=== PATIENT | female | born 1945 | race Caucasian/White ===

== ENCOUNTER 2017-03-05 16:05 | Inpatient (IN) | payer MEDICARE, OTHER ==
[2017-03-04 15:14] VITALS: BP 143/81; PULSE 88; TEMP 36.8; O2SAT 97
[~2017-03-05] VITALS: Ht 162.6 cm; Wt 54.4 kg
[~2017-03-05 16:05] MED LIST: AMB10; DPKEC500; PARO1TAB29; SUMA50TA15
[2017-03-05] MEDS ORDERED: SODIUM CHLORIDE 0.9% 1000ML 1,000 ML IV STA (16:34)
[2017-03-05 16:58] LABS: URINE APPEARANCE CLEAR (CLEAR); URINE COLOR DK YELLOW; URINE NITRITE NEG (NEG); URINE PH 5.5 (4.5-7.5); URINE SPECIFIC GRAVITY 1.018 (1.000-1.030); UROBILINOGEN NEG (NEG); ZZURINE CULT IF INDIC CATH NO
[2017-03-05 17:01] LABS: MANUAL MICROSCOPIC REQUIRED? NO; REVIEW REQ? NO; URINE BILIRUBIN NEG (NEG)
[2017-03-05 17:10] LABS: BASO % 0.1 %; BASO ABS # 0.01 K/uL (0-0.2); COMPLETE YES; EOS % 0.1 %; HEMATOCRIT 39.3 % (37-47); IG% 0.3 %; LYMPH % 7.2 %; LYMPH ABS # 1.06 K/uL (1.2-3.4); MEAN CELL VOLUME 89.3 fL (80-100); MEAN CORPUSCULAR HEMOGLOBIN 29.5 pg (25-34); MEAN CORPUSCULAR HGB CONC 33.1 g/dl (32-36); MEAN PLATELET VOLUME 9.5 fL (7.4-10.4); MONO % 5.7 %; NEUT % 86.6 %; PLATELET COUNT 379 K/uL (130-400); WHITE BLOOD COUNT 14.65 K/uL (4.8-10.8)
--- NOTE | 2017-03-05 17:10 | DIAGNOSTIC IMAGING REPORT ---
CHEST ONE VIEW PORTABLE CLINICAL HISTORY: AMS dyspnea COMPARISON STUDY: 06/05/2006 FINDINGS: Male Limited study as the head overlies the upper aspect of left hemithorax. Right lung is clear. Left base is clear. Fixed hiatal hernia. No evidence for cardiac enlargement. Left shoulder arthroplasty IMPRESSION: Nonvisualization left upper lung has the head overlies this region . Fixed hiatal hernia. The right lung and left base are clear. Electronically signed by: Raymond Ford M.D. 03/05/2017 5:09 PM Dictated Date/Time: 03/05/2017 5:07 PM
[2017-03-05 17:11] LABS: VEN BLD GAS O2 SATURATION 64.6 %; VEN BLOOD GAS BASE EXCESS -0.1 mmol/L; VENOUS BLOOD GAS PCO2 41 mmHg (38.0-50.0); VENOUS BLOOD GAS PO2 35 mmHg
[2017-03-05 17:18] LABS: INR 1.1 (0.9-1.1); PARTIAL THROMBOPLASTIN RATIO 0.9; PROTHROMBIN TIME (PATIENT) 12.2 SECONDS (9.0-12.0)
[2017-03-05 17:25] LABS: BUN/CREATININE RATIO 53.7 (10-20); CALCIUM 8.8 mg/dl (8.5-10.1); CREATININE 0.81 mg/dl (0.60-1.20)
--- NOTE | 2017-03-05 17:40 | DIAGNOSTIC IMAGING REPORT ---
CERVICAL SPINE CT CT DOSE: 2189.38 mGy.cm HISTORY: Trauma fall TECHNIQUE: Multiaxial CT images of the cervical spine were performed and reformatted in the sagittal and coronal plane without the use of contrast. COMPARISON: None. FINDINGS: No fractures. No subluxation. Prevertebral soft tissues and the C1-C2 interval are intact. No pneumothorax. Considerable degenerative change throughout. IMPRESSION: No fractures within the cervical spine. Degenerative change. Electronically signed by: Raymond Ford M.D. 03/05/2017 5:38 PM Dictated Date/Time: 03/05/2017 5:36 PM
--- NOTE | 2017-03-05 17:40 | DIAGNOSTIC IMAGING REPORT ---
HEAD CT NONCONTRAST CT DOSE: HISTORY: Mental status change ams TECHNIQUE: Multiaxial CT images of the head were performed without the use of intravenous contrast. Comparison: None. Findings: The paranasal sinuses and mastoid air cells are clear. The calvarium and skull base are intact. The ventricles and sulci are within normal limits. There is no mass, hematoma, midline shift, or acute infarct. Possible small right periventricular infarct best seen transaxial image 20 Impression: Possible small subacute right periventricular infarct. Age-related atrophy and chronic small vessel change. No acute intracranial hemorrhage. Electronically signed by: Raymond Ford M.D. 03/05/2017 5:35 PM Dictated Date/Time: 03/05/2017 5:34 PM
[2017-03-05] MEDS ORDERED: HYDR-5688 PO (17:46)
[2017-03-05] MEDS ORDERED: PARO40TA2 PO (17:46)
[2017-03-05] MEDS ORDERED: METH500T37 PO (17:46)
[2017-03-05] MEDS ORDERED: ATV/1 PO (17:46)
[2017-03-05] MEDS ORDERED: AMB5 PO (17:46)
[2017-03-05] MEDS ORDERED: LISI20TA3 PO (17:46)
[2017-03-05] MEDS ORDERED: SUMA50TA15 PO (17:46)
[2017-03-05] MEDS ORDERED: ASPIRIN 81 MG CHEW PO STA (17:56)
[2017-03-05] MEDS ORDERED: SODIUM CHLORIDE 0.9% 500ML 500 ML IV STA (18:20)
[2017-03-05] MEDS ORDERED: CEFEPIME IV 1,000 MG in DEXTROSE 5% 100ML 100 ML IV STA (18:20)
--- NOTE | 2017-03-05 18:20 | EMERGENCY ROOM VISIT NOTE ---
History Report prepared by Nacho: Evon Mathew Under the Supervision of: Dr. Vinicio Gates D.O. First contact with patient: 16:10 Chief Complaint: ALTERED MENTAL STATUS Stated Complaint: AMS History of Present Illness The patient is a 71 year old female who presents to the Emergency Room with complaints of constant altered mental status beginning [employer]. The police found the patient at her home when he went to serve a warrant. The patient was naked in the position on the floor of the kitchen. She was alone. EMS was called and the patient was brought to the ED by ambulance. The patient is a poor historian. She remembers being in the kitchen, but then talks about "dancing" and "flying." She states that she has been wearing oxygen for a couple of months. She denies abdominal pain but reports some left hand pain. The patient's son is at bedside. He has not seen the patient since . He notes that she fell a few months ago and broke her shoulder. She had surgery on that shoulder and was staying with another son. Per son, he did not think that she was supposed to be at home alone now. He states that her mental status is changed. She typically knows where she is and is not normally this confused. The history is limited due to the patient's AMS. Source of History: patient, family (son), police, EMS History Limited By: AMS Onset: [employer] Position: other (global) Quality: other (AMS) Timing: constant Associated Symptoms: No abdominal pain Note: Pt notes left hand pain. Review of Systems See HPI for pertinent positives & negatives. A total of 10 systems reviewed and were otherwise negative. Past Medical & Surgical Medical Problems: (1) Kyphosis of thoracic region Surgical Problems: (1) History of shoulder surgery Family History No pertinent history stated. Social History Smoking Status: Current Every Day Smoker Marital Status: Housing Status: lives alone Occupation Status: unemployed Current/Historical Medications Scheduled Lisinopril (Prinivil), 20 MG PO DAILY Methocarbamol (Robaxin), 1,000 MG PO QID Paroxetine HCl (Paroxetine), 1.5 TAB PO DAILY Scheduled PRN Hydrocodone/Acetaminophen 5MG/325MG ([place] 5MG/325MG), 1 TABLET PO Q6 PRN for Pain Lorazepam (Ativan), 1 MG PO HS PRN for Sleep Sumatriptan Succinate (Imitrex), 50 MG PO PRN PRN for Headache Zolpidem Tartrate (Zolpidem Tartrate), 5 MG PO HS PRN for Sleep Allergies Coded Allergies: Iodine (Verified Allergy, Unknown, 03/05/17) Uncoded Allergies: CONTRASTMEDIA (Allergy, Severe, ANAPHYLAXIS, 11/16/09) ANAPHYLACTIC Physical Exam Vital Signs Date Time Temp Pulse Resp B/P Pulse Ox O2 Delivery O2 Flow Rate FiO2 03/05/17 17:54 100 18 165/97 97 Nasal Cannula 2.0 03/05/17 17:15 100 20 158/98 96 Room Air 03/05/17 16:53 104 03/05/17 16:12 36.8 103 18 160/85 94 Room Air Physical Exam GENERAL: sitting up in bed, disheveled, chronically ill appearing, well nourished, no distress, non-toxic HEAD: NC/AT EYE EXAM: normal conjunctiva, PERRL and EOM's intact OROPHARYNX: no exudate, no erythema, lips, buccal mucosa, and tongue normal and mucous membranes are moist NECK: supple, no nuchal rigidity, no adenopathy, non-tender LUNGS: Coarse breath sounds at the bilateral bases. Normal chest wall mechanics HEART: Tachycardic, irregularly irregular, no murmurs, S1 normal and S2 normal ABDOMEN: abdomen soft, non-tender, old abdominal incision present, normo-active bowel sounds, no masses, no rebound or guarding. BACK: Large thoracic kyphosis, no midline tenderness, no CVA tenderness. SKIN: no rashes and no bruising UPPER EXTREMITIES: upper extremities are grossly normal. Grasp with flexion/ extension of upper extremities is equal and intact bilaterally. LOWER EXTREMITIES: No pitting edema. Minimal flexion of hips along with plantarflexion and dorsiflexion is intact in the lower extremities. NEURO EXAM: Alert, not oriented to place or time, intermittently confused. Able to follow commands, no focal deficits. Cranial nerves grossly intact. Medical Decision & Procedures ER Provider Diagnostic Interpretation: Radiology results as stated below per my review and the radiologist's interpretation: CHEST ONE VIEW PORTABLE CLINICAL HISTORY: AMS dyspnea COMPARISON STUDY: 06/05/2006 FINDINGS: Male Limited study as the head overlies the upper aspect of left hemithorax. Right lung is clear. Left base is clear. Fixed hiatal hernia. No evidence for cardiac enlargement. Left shoulder arthroplasty IMPRESSION: Nonvisualization left upper lung has the head overlies this region . Fixed hiatal hernia. The right lung and left base are clear. Electronically signed by: Raymond Ford M.D. 03/05/2017 5:09 PM Dictated Date/Time: 03/05/2017 5:[address] DOSE: HISTORY: Mental status change ams TECHNIQUE: Multiaxial CT images of the head were performed without the use of intravenous contrast. Comparison: None. Findings: The paranasal sinuses and mastoid air cells are clear. The calvarium and skull base are intact. The ventricles and sulci are within normal limits. There is no mass, hematoma, midline shift, or acute infarct. Possible small right periventricular infarct best seen transaxial image 20 Impression: Possible small subacute right periventricular infarct. Age-related atrophy and chronic small vessel change. No acute intracranial hemorrhage. Electronically signed by: Raymond Ford M.D. 03/05/2017 5:35 PM Dictated Date/Time: 03/05/2017 5:[address] DOSE: 2189.38 mGy.cm HISTORY: Trauma fall TECHNIQUE: Multiaxial CT images of the cervical spine were performed and reformatted in the sagittal and coronal plane without the use of contrast. COMPARISON: None. FINDINGS: No fractures. No subluxation. Prevertebral soft tissues and the C1-C2 interval are intact. No pneumothorax. Considerable degenerative change throughout. IMPRESSION: No fractures within the cervical spine. Degenerative change. Electronically signed by: Raymond Ford M.D. 03/05/2017 5:38 PM Dictated Date/Time: 03/05/2017 5:36 PM Laboratory Results 03/05/17 16:50 Red Blood Count 4.40, Mean Corpuscular Volume 89.3, Mean Corpuscular Hemoglobin 29.5, Mean Corpuscular Hemoglobin Concent 33.1, Mean Platelet Volume 9.5, Neutrophils (%) (Auto) 86.6, Lymphocytes (%) (Auto) 7.2, Monocytes (%) (Auto) 5.7, Eosinophils (%) (Auto) 0.1, Basophils (%) (Auto) 0.1, Neutrophils # (Auto) 12.70, Lymphocytes # (Auto) 1.06, Monocytes # (Auto) 0.83, Eosinophils # (Auto) 0.01, Basophils # (Auto) 0.01 03/05/17 16:50 Test 03/05/17 16:15 03/05/17 16:40 03/05/17 16:50 Bedside Glucose 130 mg/dl (70-90) Urine Color DK YELLOW Urine Appearance CLEAR (CLEAR) Urine pH 5.5 (4.5-7.5) Urine Specific [place] 1.018 (1.000-1.030) Urine Protein TRACE (NEG) Urine Glucose (UA) NEG (NEG) Urine Ketones 1+ (NEG) Urine Occult Blood TRACE (NEG) Urine Nitrite NEG (NEG) Urine Bilirubin NEG (NEG) Urine Urobilinogen NEG (NEG) Urine Leukocyte Esterase NEG (NEG) Urine WBC (Auto) 1-5 /hpf (0-5) Urine RBC (Auto) 0-4 /hpf (0-4) Urine Hyaline Casts (Auto) 1-5 /lpf (0-5) Urine Epithelial Cells (Auto) 5-10 /lpf (0-5) Urine Bacteria (Auto) NEG (NEG) White Blood Count 14.65 K/uL (4.8-10.8) Red Blood Count 4.40 M/uL (4.2-5.4) Hemoglobin 13.0 g/dL (12.0-16.0) Hematocrit 39.3 % (37-47) Mean Corpuscular Volume 89.3 fL (80-100) Mean Corpuscular Hemoglobin 29.5 pg (25-34) Mean Corpuscular Hemoglobin Concent 33.1 g/dl (32-36) Platelet Count 379 K/uL (130-400) Mean Platelet Volume 9.5 fL (7.4-10.4) Neutrophils (%) (Auto) 86.6 % Lymphocytes (%) (Auto) 7.2 % Monocytes (%) (Auto) 5.7 % Eosinophils (%) (Auto) 0.1 % Basophils (%) (Auto) 0.1 % Neutrophils # (Auto) 12.70 K/uL (1.4-6.5) Lymphocytes # (Auto) 1.06 K/uL (1.2-3.4) Monocytes # (Auto) 0.83 K/uL (0.11-0.59) Eosinophils # (Auto) 0.01 K/uL (0-0.5) Basophils # (Auto) 0.01 K/uL (0-0.2) RDW Standard Deviation 60.5 fL (36.4-46.3) RDW Coefficient of Variation 18.4 % (11.5-14.5) Immature Granulocyte % (Auto) 0.3 % Immature Granulocyte # (Auto) 0.04 K/uL (0.00-0.02) Prothrombin Time 12.2 SECONDS (9.0-12.0) Prothromb Time International Ratio 1.1 (0.9-1.1) Activated Partial Thromboplast Time 23.8 SECONDS (21.0-31.0) Partial Thromboplastin Ratio 0.9 Venous Blood pH 7.40 (7.36-7.41) Venous Blood Partial Pressure CO2 41 mmHg (38.0-50.0) Venous Blood Partial Pressure O2 35 mmHg Venous Blood HCO3 25 meq/L Venous Blood Oxygen Saturation 64.6 % Venous Blood Base Excess -0.1 mmol/L Anion Gap 12.0 mmol/L (3-11) Est Creatinine Clear Calc Drug Dose 46.9 ml/min Estimated GFR () 84.1 Estimated GFR (Non- 72.6 BUN/Creatinine Ratio 53.7 (10-20) Calcium Level 8.8 mg/dl (8.5-10.1) Total Bilirubin 0.8 mg/dl (0.2-1) Direct Bilirubin 0.3 mg/dl (0-0.2) Aspartate Amino Transf (AST/SGOT) 187 U/L (15-37) Alanine Aminotransferase (ALT/SGPT) 72 U/L (12-78) Alkaline Phosphatase 267 U/L (45-117) Total Creatine Kinase 4049 U/L (26-192) Troponin I 0.110 ng/ml (0-0.045) Total Protein 7.1 gm/dl (6.4-8.2) Albumin 3.2 gm/dl (3.4-5.0) Valproic Acid (Depakene) Level < 3 mcg/ml (50-100) Laboratory results per my review. Medications Administered Medications (Trade) Dose Ordered Sig/Veronica Route Start Time Stop Time Status Last Admin Dose Admin Sodium Chloride (Nss 1000ml) 1,000 ml @ 999 mls/hr Q1H1M STAT IV 03/05/17 16:34 03/05/17 17:34 DC 03/05/17 16:59 999 MLS/HR ECG Indication: altered mental status Rate (beats per minute): 104 Rhythm: atrial fibrillation (with RVR) Findings: Q waves (Septal and inferior), left axis deviation, other (poor baseline) Comparison ECG Date: 06/09/06 Change: Septal and inferior Q-waves are new. ED Course ED COURSE: Vital signs were reviewed and showed hypertensive and tachycardic. The patients medical record was reviewed The above diagnostic studies were performed and reviewed. ED treatments and interventions as stated above. 1610: The patient was evaluated in room B7. A complete history and physical examination was performed. 1634: NSS 1000 ml @ 999 mls/hr IV 1645: I reassessed the patient and she was getting an x-ray. 1744: Upon reevaluation, the patient is resting comfortably. I discussed my findings with the patient and her family. I answered all pertaining questions that they had. They understand and agree with the treatment plan. Based on the patients age, coexisting illnesses, exam and lab findings the decision to treat as an inpatient was made. The patient remained stable while under my care. The patient will be evaluated for further management. 1801: I spoke with Rivka Barber PA-C. We discussed the patients results and treatment plan. [facility] Medical Decision Differential diagnoses includes but is not limited to toxic, metabolic, infectious, traumatic, cardiac, neurologic, hematologic, psychiatric and inflammatory etiologies. Medication Reconciliation: I attest that I have personally reviewed the patient' s current medication list. Patient is a 71-year-old female brought in by EMS for altered mental status. Although she is oriented to person and place she has a sporadic thought process and is confused. She is unable to clearly answer all questions. Vitals are remarkable for an A. fib with a rate of 100. She does not think she takes any blood thinners. EKG is significantly changed from previous. Troponin is positive at 0.1. I do question whether this is rate related versus secondary to her rhabdomyolysis with a CK of 4000. She was given 2 L normal saline. She is given aspirin. CT of the head shows a subacute stroke. She has no obvious focal deficit but is clearly confused. She does have a leukocytosis of 14,000 but urine and chest x-ray are unremarkable. Her abdominal exam is benign. Uncertain of the true cause of her leukocytosis at this time however did cover her with broad-spectrum antibiotics and admitted her to internal medicine for further workup of her metabolic encephalopathy along with rhabdomyolysis, elevated troponin and CVA. Consults Time Called: 1755 Consulting Physician: Rivka Barber PA-C Returned Call: 1801 I spoke with Rivka Barber PA-C. We discussed the patients results and treatment plan. The patient will be evaluated by the [facility] for further management. Impression Primary Impression: Altered mental status Additional Impressions: CVA (cerebral vascular accident) Atrial fibrillation with RVR Elevated troponin Rhabdomyolysis Scribe Attestation The scribe's documentation has been prepared under my direction and personally reviewed by me in its entirety. I confirm that the note above accurately reflects all work, treatment, procedures, and medical decision making performed by me. Departure Information Dispostion Being Evaluated By Hospitalist Referrals No Doctor, Assigned (PCP) Patient Instructions My [facility] Stroke History Time Last Known Well unknown Stroke t-PA Criteria Reviewed Does NOT meet criteria for t-PA Reason t-PA Not Given Treatment not indicated Problem Qualifiers Primary Impression: Altered mental status Altered mental status type: unspecified Qualified Codes: R41.82 - Altered mental status, unspecified Additional Impressions: CVA (cerebral vascular accident) CVA mechanism: unspecified Qualified Codes: I63.9 - Cerebral infarction, unspecified Rhabdomyolysis Rhabdomyolysis type: non-traumatic Qualified Codes: M62.82 - Rhabdomyolysis
[2017-03-05] MEDS ORDERED: POTASSIUM CHLORIDE 10 MEQ TABCR PO SCH (18:23)
[2017-03-05] MEDS ORDERED: PHARMACIST DISCHARGE MED REC CONSULT PRN (19:15)
[2017-03-05] MEDS ORDERED: ONDANSETRON INJ 2 MG/ML 2 ML VIAL IV PRN (19:15)
[2017-03-05] MEDS ORDERED: LORAZEPAM 0.5 MG TAB ONE (20:13)
[2017-03-05] MEDS ORDERED: LORAZEPAM 0.5 MG TAB PO SCH (20:15)
[2017-03-05] MEDS ORDERED: METOPROLOL TARTRATE 1 MG/ML VIAL IV PRN (20:45)
[2017-03-05] MEDS ORDERED: DIVA500T59 PO (20:52)
[2017-03-05] MEDS: ATORVASTATIN 40 MG TAB PO SCH ×2 (21:00→22:33)
[2017-03-05] MEDS ORDERED: METHOCARBAMOL 500 MG TAB PO SCH (21:00)
[2017-03-05] MEDS ORDERED: NURSING VERBAL MED ORDER ONE (21:15)
--- NOTE | 2017-03-05 21:16 | History and Physical ---
History & Physical Date & Time of Service: March 05, 2017 at 20:06 Chief Complaint: AMS Primary Care Physician: Dr. Bojorquez History of Present Illness Source: patient, family, clinic records This is a 71 y/o female with PMH of hypertension, migraine, who presents to the ED with AMS. Pt is a poor historian. She she fell at home but does not recall the details. The fall was unwitnessed. Per ER provider the patient was found today by the police in her home. Patient was found naked in the position on the floor of her kitchen. EMS was called and the patient was brought to the ED by ambulance. Patient states she falls and hits her head "all the time". Uses a walker at home. She fell and broke her shoulder in November 2016 and fractured her hip in Jun 2016. Lives alone. She was living with her son Juvencio after hospitalization in [place] for falls in January, but now is living alone. Pt is accompanied by her other son who has not seen her for months. He states at baseline she is alert and oriented. Patient reports recent productive cough with yellow sputum and rhinorrhea. She is feeling generally weak in the arms and legs. Also reports "foggy vision" today. States she occasionally has epigastric pain which resolves with Zantac. No pain currently. She denies fever , chills, MARQUIS, dizziness, focal numbness or weakness, facial droop, slurred speech, chest pain, SOB, N/V/D, dysuria, frequency, wounds. Denies hx of abnormal bleeding. No prior dx of AF or CAD. No hx of CVA or TIA. I spoke to patient's son Juvencio on the phone who is her POA and sees her regularly. Son Juvencio states she was normal on the phone 2 days ago. He states her current confusion is worse than baseline. Patient was on PRN oxygen in the past but not using it lately. Son states she manages her own meds but sometimes forgets she already took them. Past Medical/Surgical History Medical Problems: (1) Anxiety Status: Chronic (2) Depression Status: Chronic (3) GERD (gastroesophageal reflux disease) Status: Chronic (4) Hypertension Status: Chronic (5) Kyphosis of thoracic region Status: Chronic (6) Migraine Status: Chronic (7) SCC (squamous cell carcinoma) Permanent Comment: right thigh 2001 Status: Chronic Surgical Problems: (1) History of hysterectomy Status: Chronic (2) History of shoulder surgery Status: Resolved (3) S/P total hip arthroplasty Status: Chronic Family History Not obtainable due to AMS. Social History Smoking Status: Current Every Day Smoker (1 ppd ) Alcohol Use: socially Drug Use: none Marital Status: Housing status: lives alone Immunizations History of Influenza Vaccine: No Tetanus Immunization Date: February 25, 1999 History of Pneumococcal: No History of Hepatitis B Vaccine: No Multi-Drug Resistant Organisms History of MDRO: No Allergies Coded Allergies: Iodinated Diagnostic Agents (Verified Allergy, Severe, ANAPHYLAXIS -- "Contrast Media", 03/05/17) Iodine (Verified Allergy, Unknown, 03/05/17) Home Medications Scheduled Divalproex Sodium (Depakote), 500 MG PO DAILY Lisinopril (Prinivil), 20 MG PO DAILY Methocarbamol (Robaxin), 1,000 MG PO QID Paroxetine HCl (Paroxetine), 1.5 TAB PO DAILY Scheduled PRN Hydrocodone/Acetaminophen 5MG/325MG (Montrose 5MG/325MG), 1 TABLET PO Q6 PRN for Pain Lorazepam (Ativan), 1 MG PO HS PRN for Sleep Sumatriptan Succinate (Imitrex), 50 MG PO PRN PRN for Headache Zolpidem Tartrate (Zolpidem Tartrate), 5 MG PO HS PRN for Sleep Review of Systems Ten systems reviewed and negative except as noted in HPI. Physical Exam Vital Signs Date Time Temp Pulse Resp B/P Pulse Ox O2 Delivery O2 Flow Rate FiO2 03/05/17 17:54 100 18 165/97 97 Nasal Cannula 2.0 03/05/17 17:15 100 20 158/98 96 Room Air 03/05/17 16:53 104 03/05/17 16:12 36.8 103 18 160/85 94 Room Air General Appearance: WD/WN, no apparent distress, + pertinent finding (alert confused 71 year old female, son and daughter in law at bedside) Head: normocephalic, atraumatic Eyes: normal inspection, PERRL, EOMI ENT: normal ENT inspection, hearing grossly normal, pharynx normal Neck: supple, no JVD, trachea midline Respiratory/Chest: lungs clear, normal breath sounds, no respiratory distress, no accessory muscle use Cardiovascular: no murmur, + irregularly irregular Abdomen/GI: normal bowel sounds, non tender, soft Back: + pertinent finding (kyphosis) Extremities/Musculoskelatal: no calf tenderness, no pedal edema Neurologic/Psych: network communications engineer II-XII nml as tested, alert, normal mood/affect, + pertinent finding (oriented to person and place only. unable to recall recent events. tangential speech at times. cherry grower strength 5/5 bilaterally. unable to lift bilateral legs off the bed. ankle flexion/ extension 5/5 bilaterally) Skin: normal color, warm/dry, + pertinent finding (ecchymosis scattered on extremities) Diagnostics Laboratory Results Results Past 24 Hours Test 03/05/17 16:15 03/05/17 16:40 03/05/17 16:50 03/05/17 19:28 Range/Units Bedside Glucose 130 70-90 mg/dl Urine Color DK YELLOW Urine Appearance CLEAR CLEAR Urine pH 5.5 4.5-7.5 Urine Specific [place] 1.018 1.000-1.030 Urine Protein TRACE NEG Urine Glucose (UA) NEG NEG Urine Ketones 1+ NEG Urine Occult Blood TRACE NEG Urine Nitrite NEG NEG Urine Bilirubin NEG NEG Urine Urobilinogen NEG NEG Urine Leukocyte Esterase NEG NEG Urine WBC (Auto) 1-5 0-5 /hpf Urine RBC (Auto) 0-4 0-4 /hpf Urine Hyaline Casts (Auto) 1-5 0-5 /lpf Urine Epithelial Cells (Auto) 5-10 0-5 /lpf Urine Bacteria (Auto) NEG NEG White Blood Count 14.65 4.8-10.8 K/uL Red Blood Count 4.40 4.2-5.4 M/uL Hemoglobin 13.0 12.0-16.0 g/dL Hematocrit 39.3 37-47 % Mean Corpuscular Volume 89.3 80-100 fL Mean Corpuscular Hemoglobin 29.5 25-34 pg Mean Corpuscular Hemoglobin Concent 33.1 32-36 g/dl Platelet Count 379 130-400 K/uL Mean Platelet Volume 9.5 7.4-10.4 fL Neutrophils (%) (Auto) 86.6 % Lymphocytes (%) (Auto) 7.2 % Monocytes (%) (Auto) 5.7 % Eosinophils (%) (Auto) 0.1 % Basophils (%) (Auto) 0.1 % Neutrophils # (Auto) 12.70 1.4-6.5 K/uL Lymphocytes # (Auto) 1.06 1.2-3.4 K/uL Monocytes # (Auto) 0.83 0.11-0.59 K/uL Eosinophils # (Auto) 0.01 0-0.5 K/uL Basophils # (Auto) 0.01 0-0.2 K/uL RDW Standard Deviation 60.5 36.4-46.3 fL RDW Coefficient of Variation 18.4 11.5-14.5 % Immature Granulocyte % (Auto) 0.3 % Immature Granulocyte # (Auto) 0.04 0.00-0.02 K/uL Prothrombin Time 12.2 9.0-12.0 SECONDS Prothromb Time International Ratio 1.1 0.9-1.1 Activated Partial Thromboplast Time 23.8 21.0-31.0 SECONDS Partial Thromboplastin Ratio 0.9 Venous Blood pH 7.40 7.36-7.41 Venous Blood Partial Pressure CO2 41 38.0-50.0 mmHg Venous Blood Partial Pressure O2 35 mmHg Venous Blood HCO3 25 meq/L Venous Blood Oxygen Saturation 64.6 % Venous Blood Base Excess -0.1 mmol/L Sodium Level 143 136-145 mmol/L Potassium Level 3.0 3.5-5.1 mmol/L Chloride Level 105 98-107 mmol/L Carbon Dioxide Level 26 21-32 mmol/L Anion Gap 12.0 3-11 mmol/L Blood Urea Nitrogen 44 7-18 mg/dl Creatinine 0.81 0.60-1.20 mg/dl Est Creatinine Clear Calc Drug Dose 46.9 ml/min Estimated GFR () 84.1 Estimated GFR (Non- 72.6 BUN/Creatinine Ratio 53.7 10-20 Random Glucose 109 70-99 mg/dl Calcium Level 8.8 8.5-10.1 mg/dl Total Bilirubin 0.8 0.2-1 mg/dl Direct Bilirubin 0.3 0-0.2 mg/dl Aspartate Amino Transf (AST/SGOT) 187 15-37 U/L Alanine Aminotransferase (ALT/SGPT) 72 12-78 U/L Alkaline Phosphatase 267 45-117 U/L Total Creatine Kinase 4049 26-192 U/L Troponin I 0.110 0-0.045 ng/ml Total Protein 7.1 6.4-8.2 gm/dl Albumin 3.2 3.4-5.0 gm/dl Thyroid Stimulating Hormone (TSH) 1.100 0.300-4.500 uIu/ml Valproic Acid (Depakene) Level < 3 50-100 mcg/ml Lactic Acid Level 2.0 0.4-2.0 mmol/L Test 03/05/17 19:55 Range/Units Diagnostic Radiology HEAD CT NONCONTRAST CT DOSE: HISTORY: Mental status change ams TECHNIQUE: Multiaxial CT images of the head were performed without the use of intravenous contrast. Comparison: None. Findings: The paranasal sinuses and mastoid air cells are clear. The calvarium and skull base are intact. The ventricles and sulci are within normal limits. There is no mass, hematoma, midline shift, or acute infarct. Possible small right periventricular infarct best seen transaxial image 20 Impression: Possible small subacute right periventricular infarct. Age-related atrophy and chronic small vessel change. No acute intracranial hemorrhage. CHEST ONE VIEW PORTABLE CLINICAL HISTORY: AMS dyspnea COMPARISON STUDY: 06/05/2006 FINDINGS: Male Limited study as the head overlies the upper aspect of left hemithorax. Right lung is clear. Left base is clear. Fixed hiatal hernia. No evidence for cardiac enlargement. Left shoulder arthroplasty IMPRESSION: Nonvisualization left upper lung has the head overlies this region . Fixed hiatal hernia. The right lung and left base are clear. CERVICAL SPINE CT CT DOSE: 2189.38 mGy.cm HISTORY: Trauma fall TECHNIQUE: Multiaxial CT images of the cervical spine were performed and reformatted in the sagittal and coronal plane without the use of contrast. COMPARISON: None. FINDINGS: No fractures. No subluxation. Prevertebral soft tissues and the C1-C2 interval are intact. No pneumothorax. Considerable degenerative change throughout. IMPRESSION: No fractures within the cervical spine. Degenerative change. EKG artifact present, Afib with RVR rate 104, no ST or T wave abnormality Impression Assessment and Plan ALTERED MENTAL STATUS Presents with fall, confusion, blurred vision Ddx includes TIA/CVA, metabolic encephalopathy due to infection and/or dehydration Infection considered due to leukocytosis (14K) and HR >90; afebrile, lactic acid WNL, procalcitonin pending; no source identified- no infiltrate on CXR, UA does not appear infected Received dose of cefepime in ED; will hold off on further abx for now Blood cx and urine cx pending Hold Ativan, Montrose, Ambien, methocarbamol for AMS RULE OUT CVA Risk factors- HTN, Afib CT head- Possible small subacute right periventricular infarct. Age-related atrophy and chronic small vessel change. No acute intracranial hemorrhage. Check MRI brain, MRA head and neck, echo with bubble study, fasting lipid panel , A1c Placed on aspirin and statin May need IV heparin for stroke with AF- will be decided after MRI PT/ OT evaluations Consult [facility] neurology; pt known to Dr. Aleman (follows for migraines) AFIB WITH RVR- NEWLY DIAGNOSED Rate ~100 Potassium low- replacing; check mag- ok; TSH WNL Received dose of cefepime for ? infxn given leukocytosis and tachycardia, however no source identified Check echo Lopressor 2.5 mg PRN HR >110 CHADS2 score- 1 for HTN plus 1-2 if she is truly having TIA or CVA May start IV heparin later tonight after MRI results ? whether candidate for fpc AC due to frequent falls Consult cardiology S/P FALL Unclear details, unwitnessed Check x-ray bilateral hip to r/o fx due to pain with ROM MILD RHABDOMYOLYSIS Secondary to fall CK ~4000 Continue IVF's Recheck CK in am MILD TROPONIN ELEVATION Troponin is 0.1 No angina; possibly due to AF with RVR EKG- AF with RVR, no STTWA Trend serial cardiac enzymes HYPOKALEMIA Replace and monitor Check mag HISTORY OF MIGRAINE Depakote level OK- continue Depakote DEPRESSION Continue Paxil GERD Continue PPI DVT PROPHYLAXIS Heparin SQ CODE STATUS Full code per my discussion with son Juvencio who is POA via phone call. He wishes to receive updates with any changes at [phone]. DISPOSITION Follows w/ Dr. Bojorquez for primary care Lives alone which is unsafe for her; secondary social studies teacher consulted for discharge planning Patient seen in collaboration with Dr. Figueroa. Please see his addendum. Attending Addendum Pt was seen and examined. Agreed with Nela VUONG assessment and plan. Briefly, 71 y/o female with PMH of hypertension, hx of fall with fracture was brought to the ED with AMS. As per son and ER documentation patient was found today by the police in her home. Police called EMS and Pt was brought to the ER. Patient was found naked in the position on the floor of her kitchen. Pt is confused and cannot provide history. Pt denies any chest pain, palpitation and sob. General- confused Head- atraumatic Eyes- PERRL, EOMI ENT- oropharynx clear Neck- supple, no JVD Lungs- No wheezing Heart- irregular rhythm Abdomen- normal bowel sounds, soft Extremities- No calf tenderness, b/l hips tenderness Neuro- alert, PERRL, EOMI; no facial palsy; no dysarthria Skin- warm & dry A/P ALTERED MENTAL STATUS Presents with fall, confusion, blurred vision Possible related to infection vs dehydration vs TIA Need to R/O CVA CT head showed Possible small subacute right periventricular infarct. elevated WBC Received dose of cefepime in ED; will hold off on further abx for now Blood cx and urine cx pending Hold meds with SYSTEMS MGR side effects Will get MRI/MRA head and MRA of neck Neuro Consult Case discussed with Neuro Dr. Haile about starting heparin drip in the setting of brain infarct recommend to wait for the MRI and if it seem like it is an emboli stroke vs large infarct. if it a large infarct, will hold on heparin drip due to risk of bleeding neuro check fall precaution Case management consult for placement AFib Unknown onset Elevated troponin will get a Decho cardio consult consider to start heparin drip, but need to r/o of any brain hemorrhage continue telemetry Lab, Imaging, EKG reviewed Please refer to Nela VUONG documentation for other problems. Annamaria Figueroa MD VTE Prophylaxis VTE Risk Assessment Done? Y/N: Yes Risk Level: Moderate Given or contraindicated: Unfractionated heparin SQ
[2017-03-05] MEDS ORDERED: LORAZEPAM 2 MG/ML 1 ML VIAL ONE (21:18)
[2017-03-05 21:27] VITALS: BP 158/79; PULSE 108; TEMP 37.3; O2SAT 95; Ht 162.6 cm; Wt 54.4 kg
[2017-03-05] MEDS ORDERED: HEPARIN SOD 5000 UNIT/0.5 ML CARP SQ SCH (22:00)
[2017-03-05] MEDS: SODIUM CHLORIDE 0.9% 1000ML 1,000 ML IV SCH (22:33)
[2017-03-05] MEDS: POTASSIUM CHLR 10 MEQ / WTR 10 MEQ in PREMIXED WATER 100 ML IV SCH ×2 (22:37→23:41)
[2017-03-05 23:53] VITALS: BP 151/62; PULSE 97; TEMP 37.5; O2SAT 97
[2017-03-06] VITALS (8 sets, daily range): BP systolic 120–154; BP diastolic 70–93; PULSE 67–101; TEMP 36.8–37.6; O2SAT 94–100
[2017-03-06] MEDS ORDERED: HEPARIN IV LOW DOSE NO BOLUS STA (01:05)
[2017-03-06] MEDS ORDERED: HEPARIN 25,000 UNIT/500ML D5W 500 ML IV PRN (01:30)
[2017-03-06] MEDS: SODIUM CHLORIDE 0.9% 1000ML 1,000 ML IV SCH ×3 (05:14→23:19)
[2017-03-06 05:25] LABS: COMPLETE YES; EOS % 0.5 %; HEMATOCRIT 32.7 % (37-47); IG% 0.1 %; LYMPH % 8.1 %; LYMPH ABS # 0.64 K/uL (1.2-3.4); MEAN CELL VOLUME 90.3 fL (80-100); MEAN CORPUSCULAR HEMOGLOBIN 29.6 pg (25-34); MEAN CORPUSCULAR HGB CONC 32.7 g/dl (32-36); MEAN PLATELET VOLUME 8.9 fL (7.4-10.4); MONO % 14.7 %; NEUT % 76.6 %; PLATELET COUNT 288 K/uL (130-400); RED BLOOD COUNT 3.62 M/uL (4.2-5.4); WHITE BLOOD COUNT 7.88 K/uL (4.8-10.8)
[2017-03-06 06:26] LABS: ESTIMATED AVERAGE GLUCOSE 111 mg/dl; HA1C FLAG Normal (Normal)
[2017-03-06 06:33] LABS: BUN/CREATININE RATIO 51.9 (10-20); CREATININE 0.55 mg/dl (0.60-1.20)
[2017-03-06 06:34] LABS: CALCIUM 7.7 mg/dl (8.5-10.1); CHOLESTEROL/HDL RATIO 2.7; CKMB/CK RATIO 2.1 (0-3.0); MAGNESIUM 2.3 mg/dl (1.8-2.4); POTASSIUM 3.7 mmol/L (3.5-5.1)
--- NOTE | 2017-03-06 07:32 | DIAGNOSTIC IMAGING REPORT ---
CT SCAN OF THE BRAIN WITHOUT IV CONTRAST CLINICAL HISTORY: Change in mental status. COMPARISON STUDY: CT of the brain dated 03/05/2017. TECHNIQUE: Unenhanced axial CT scan of the brain is performed from the vertex to the skull base. Examination is severely degraded by motion artifact. The patient was scanned 3 times in an effort to improve image quality. CT DOSE: 1535.66 mGy.cm FINDINGS: Brain parenchyma: There are age-related involutional changes noting moderate subcortical and periventricular microangiopathic change. A chronic lacunar infarct is identified in the right thalamus. There is no hemorrhage, mass effect, or evidence of acute territorial ischemia by CT criteria. Hassan-white matter is preserved. No extra-axial fluid collection is seen. Ventricles, sulci, cisterns: Prominent secondary to involutional change. Intracranial vasculature: There is atherosclerotic calcification of the cavernous carotid arteries. Calvarium: Unremarkable. Sinuses and mastoids: The visualized paranasal sinuses are clear. The mastoid air cells are well pneumatized. Orbits: The bony orbits are grossly intact. IMPRESSION: Senescent changes as above with no hemorrhage, mass effect, or evidence of acute territorial ischemia by CT criteria noting a significantly motion degraded examination. Electronically signed by: Gary Mitchell M.D. 03/06/2017 7:31 AM Dictated Date/Time: 03/06/2017 7:27 AM
--- NOTE | 2017-03-06 08:05 | Clinical Documentation Query ---
[facility] QUERY Patient is a 71 year old female admitted for evaluation and treatment of an alteration in mental status, subsequently determined to have has a possible small subacute right periventricular infarct, rhabdomyolysis, and new onset of atrial fibrillation. BMI noted to be 17.8 kg/m*m. Unless the associated condition(s) such as thin, underweight, cachectic, etc., are explicitly documented by the provider, the severity associated with this low BMI cannot be captured. As appropriate, consider documentation as suggested below. Thank you. In your clinical opinion is this patient: ( + ) Underweight/cachectic, mild/moderate protein-calorie malnutrition ( ) Other explanation of clinical findings (Please Explain) ( ) Unable to determine (Please Define) ( ) Need to Discuss ( ) Not Agree The medical record reflects the following clinical findings, treatment, and risk factors. Clinical Indicators: As above Treatment: AHA diet, I/O Risk Factors: Age, chronically poor intake Please clarify and document your clinical opinion in the progress notes and discharge summary. Terms such as "probable", "suspected", "likely", "questionable", "possible", or "still to be ruled out" are acceptable. IF IN AGREEMENT, YOU MUST DOCUMENT ABOVE DIAGNOSTIC STATEMENT IN DAILY PROGRESS NOTES AND DISCHARGE SUMMARY. This document is not part of the patient's record. Thank You, Paulino Cheung, TEZ [phone]
[2017-03-06] MEDS: PAROXETINE 20 MG TAB PO SCH (08:21)
[2017-03-06] MEDS: DIVALPROEX SODIUM 500 MG DELAY RELEASE TAB PO SCH (08:21)
[2017-03-06] MEDS: ASPIRIN 325 MG ECTAB PO SCH (08:22)
[2017-03-06] MEDS: LISINOPRIL 20 MG TAB PO SCH (08:22)
--- NOTE | 2017-03-06 08:40 | ECHOCARDIOGRAM REPORT ---
*NOTICE TO RECEIVING LIBERTARIAN AGENCY This information is strictly Confidential and protected under [place] law. [place] law prohibits you from making any further disclosure of this information unless further disclosure is expressly permitted by the written consent of the person to whom it pertains or is authorized by law. A general authorization for the release of medical or other information is not sufficient for this purpose. Hospital accepts no responsibility if the information is made available to any other person, INCLUDING THE PATIENT. Interpretation Summary * Name: SAPPHIRE AGUILERA Study Date: 03/06/2017 06:47 AM BP: 134/78 mmHg * Patient Location: [facility] HR: 101 * : 1945 (M/d/yyyy) Gender: Female Height: 64 in * Age: 71 yrs Ethnicity: CA Weight: 104 lb * Ordering Physician: Nela Barber * Referring Physician: DENITA * Performed By: Suly Carreno RDCS * * Reason For Study: STROKE * BSA: 1.5 m2 * -- Conclusions -- * Normal LV chamber size with mild concentric LVH, sigmoid appearing septum. * Normal LV systolic function, EF 55-60%. * No segmental left ventricular wall motion abnormalities are noted. * Aortic valve sclerosis mild, without significant aortic valvular stenosis. * Mild tricuspid regurgitation. * Small, loculated posterior pericardial effusion. Procedure Details * A saline contrast injection was performed to assess for cardiac shunting. * The injection was performed through an intravenous line in the left arm. * The attending nurse who injected the saline contrast was DOMINIC ODONNELL RN. * A total of 20 cc of agitated saline was given. Left Ventricle * The left ventricle is normal in size. * There is mild concentric left ventricular hypertrophy. * The basal septum is thickened and angulated consistent with sigmoid septum. * Ejection Fraction = 55-60%. * Left ventricular systolic function is normal. * No segmental left ventricular wall motion abnormalities are noted. * The left ventricular wall motion is normal at rest. Right Ventricle * The right ventricular cavity size is normal (basal dimension <4.2 cm in right ventricular apical 4-chamber view). * The right ventricular systolic function is normal as assessed by tricuspid annular plane systolic excursion (TAPSE) (normal >1.5 cm). Atria * The left atrial size is normal. * Right atrial size is normal. * No ASD detected; PFO is not assessed. Mitral Valve * The mitral valve is normal in structure and function. Tricuspid Valve * The tricuspid valve anatomy is normal. * There is no tricuspid stenosis. * There is mild tricuspid regurgitation. Aortic Valve * The aortic valve is trileaflet. * Aortic valve sclerosis mild, without significant aortic valvular stenosis. * No hemodynamically significant valvular aortic stenosis. * There is no significant aortic regurgitation. Pulmonic Valve * The pulmonary valve is not well seen, but the Doppler examination is normal without significant regurgitation or stenosis. Great Vessels * The aortic root is normal size. Pericardium/Pleural * Small pericardial effusion. * A loculated pericardial effusion is noted. MMode 2D Measurements and Calculations IVSd 1.7 cm IVSs 1.9 cm LVIDd 3.5 cm LVIDs 2.5 cm LVPWd 1.3 cm LVPWs 1.7 cm IVS/LVPW 1.3 FS 28.5 % EDV(Teich) 51.7 ml ESV(Teich) 22.8 ml EF(Teich) 56.0 % EDV(cubed) 43.8 ml ESV(cubed) 16.0 ml EF(cubed) 63.5 % % IVS thick 7.3 % % LVPW thick 27.2 % LV mass(C)d 204.5 grams LV mass(C)dI 138.0 grams/m\S\2 LV mass(C)s 176.0 grams LV mass(C)sI 118.8 grams/m\S\2 SV(Teich) 29.0 ml SI(Teich) 19.6 ml/m\S\2 SV(cubed) 27.8 ml SI(cubed) 18.8 ml/m\S\2 Ao root diam 3.5 cm Ao root area 9.8 cm\S\2 LA dimension 3.3 cm LA/Ao 0.93 LVAd ap4 26.0 cm\S\2 LVLd ap4 8.7 cm EDV(MOD-sp4) 61.7 ml LVAs ap4 15.6 cm\S\2 LVLs ap4 7.8 cm ESV(MOD-sp4) 29.5 ml EF(MOD-sp4) 52.2 % LVAd ap2 28.8 cm\S\2 LVLd ap2 8.8 cm EDV(MOD-sp2) 76.4 ml LVAs ap2 15.1 cm\S\2 LVLs ap2 7.3 cm ESV(MOD-sp2) 29.4 ml EF(MOD-sp2) 61.5 % SV(MOD-sp4) 32.2 ml SI(MOD-sp4) 21.7 ml/m\S\2 SV(MOD-sp2) 47.0 ml SI(MOD-sp2) 31.7 ml/m\S\2 Doppler Measurements and Calculations MV E max dandre 103.6 cm/sec MV A max dandre 80.1 cm/sec MV E/A 1.3 MV dec time 0.22 sec Ao V2 max 168.7 cm/sec Ao max PG 11.4 mmHg Ao max PG (full) 5.7 mmHg LV V1 max PG 5.7 mmHg LV V1 max 119.5 cm/sec TR max dandre 300.9 cm/sec
[2017-03-06 08:50] LABS: PARTIAL THROMBOPLASTIN RATIO 0.9
--- NOTE | 2017-03-06 09:44 | DIAGNOSTIC IMAGING REPORT ---
SINGLE VIEW PELVIS; 2 VIEWS RIGHT HIP; 2 VIEWS LEFT HIP CLINICAL HISTORY: Fall. Bilateral hip pain of several months duration. FINDINGS: An AP view of the pelvis with AP and frog-leg views of the right hip as well as AP and frog-leg views of the left hip are obtained. Comparison is made to pelvic radiograph dated 12/07/2013. The skeletal structures are osteopenic. A right hip arthroplasty is new from the 2013 examination. No periprosthetic lucency is identified. Bony overgrowth is seen along the greater trochanter of the right femur. No definite acute fracture is identified. Chronic right pubic ring fractures are again seen. There may be a superimposed subacute right superior pubic ring fracture. There is a comminuted fracture of the left inferior pubic ring with distracted fragments. There is nonunion of fragments, and this is likely subacute/healing. Mild arthritic change is noted in the left hip. The sacroiliac joints are normal as imaged. The overlying soft tissues are within normal limits. There is a nonobstructed abdominal bowel gas pattern. Suture material is seen in the right lower quadrant. IMPRESSION: 1. No definite acute fracture is seen. 2. There is a comminuted and subacute/healing fracture identified involving the left pubic ring with distracted and incompletely fused fragments. 3. There are chronic right pubic ring fractures, with possible subacute on chronic fracture of the right superior pubic ring. 4. A right hip arthroplasty is new from 12/07/2013. There is no evidence of hardware complication. Electronically signed by: Gary Mitchell M.D. 03/06/2017 9:42 AM Dictated Date/Time: 03/06/2017 9:37 AM
--- NOTE | 2017-03-06 10:22 | Neurology Consultation ---
Neurology Consultation Date of Consultation: March 06, 2017. Attending Physician: Beth Jolly M.D. Primary Care Physician: No Doctor, Assigned Reason for Consultation: Change in mental status possible stroke History of Present Illness Source: hospital records The patient is an unreliable historian. History of present illness obtained from available medical records. The patient is a 71-year-old female who was reportedly found lying on the floor of her home by the police. She was reportedly naked and lying in a " position." She was confused and not really able to provide any meaningful historical details. Past medical history is notable for hypertension, migraine, depression, and tobacco use. She is prescribed a variety of medications as an outpatient including lisinopril, Paxil, Lipitor, Ambien, Depakote, and lorazepam. Electrocardiogram revealed atrial fibrillation with a rapid ventricular response. A CT of the head obtained upon presentation revealed a possible, small, subacute right periventricular infarct. I reviewed the images and radiologist's interpretation of this test. A repeat CT of the head, however , reveals a chronic right thalamic lacunar infarct and is otherwise unremarkable. No evidence of hemorrhage. A heparin drip has been started in light of this patient's recently identified atrial fibrillation. I [facility] utilization of [facility] A brain MRI was recommended although apparently not tolerated. Past Medical/Surgical History Medical Problems: (1) Altered mental status Status: Acute (2) Atrial fibrillation with RVR Status: Acute (3) CVA (cerebral vascular accident) Status: Acute (4) Elevated troponin Status: Acute (5) Rhabdomyolysis Status: Acute Family History Noncontributory Social History Alcohol Use: socially Drug Use: none Marital Status: Housing Status: lives alone Allergies Coded Allergies: Iodinated Diagnostic Agents (Verified Allergy, Severe, ANAPHYLAXIS -- "Contrast Media", 03/05/17) Iodine (Verified Allergy, Unknown, 03/05/17) Current Inpatient Medications Current Inpatient Medications Medications (Trade) Dose Ordered Sig/Veronica Route Start Time Stop Time Status Last Admin Dose Admin Acetaminophen (Tylenol Tab) 650 mg Q4H PRN PO 03/05/17 19:15 04/04/17 19:14 Ondansetron HCl (Zofran Inj) 4 mg Q6H PRN IV 03/05/17 19:15 6/24/17 19:14 Atorvastatin Calcium (Lipitor Tab) 40 mg QPM PO 03/05/17 21:00 04/04/17 20:59 Aspirin (Ecotrin Tab) 325 mg QAM PO 03/06/17 09:00 04/05/17 08:59 03/06/17 08:22 325 MG Miscellaneous Information 1 ea 1 ea UD PRN N/A 03/05/17 19:15 04/04/17 19:14 Sodium Chloride (Nss 1000ml) 1,000 ml @ 100 mls/hr Q10H IV 03/05/17 19:03 04/04/17 19:02 03/06/17 05:14 100 MLS/HR Metoprolol Tartrate (Lopressor Iv) 2.5 mg Q6 PRN IV 03/05/17 20:45 04/04/17 20:44 Divalproex Sodium (Depakote Delay Rel Tab) 500 mg DAILY PO 03/06/17 09:00 04/05/17 08:59 03/06/17 08:21 500 MG Lisinopril (Zestril Tab) 20 mg DAILY PO 03/06/17 09:00 04/05/17 08:59 03/06/17 08:22 20 MG Paroxetine HCl 60 mg 60 mg DAILY PO 03/06/17 09:00 04/05/17 08:59 03/06/17 08:21 60 MG Heparin Sodium/ Dextrose (Heparin 25,000 Unit/500ml D5W) 500 ml @ 11 mls/hr Q24H PRN IV 03/06/17 01:30 04/05/17 01:29 03/06/17 02:00 11 MLS/HR Review of Systems The patient denies headache, fever, chest pain, palpitations, cough, wheezing, shortness of breath, hearing loss, weakness, sensory loss, muscle pain, joint pain, swollen glands, abnormal bleeding Patient does complain of some difficulty with her vision and she does not have her glasses. A full 10 point systems review was obtained from this patient although limited due to poor patient cooperation and probably of limited validity. Pertinent positives and negatives described in the history of present illness and listed above. All other systems were reviewed and are negative. Physical Exam Vital Signs (Past 24 Hrs): Date Time Temp Pulse Resp B/P Pulse Ox O2 Delivery O2 Flow Rate FiO2 03/06/17 08:00 Nasal Cannula 2.0 03/06/17 07:45 37.2 77 20 154/70 100 Room Air 03/06/17 04:00 100 Nasal Cannula 2.0 03/06/17 03:27 36.9 101 22 134/78 100 Nasal Cannula 3.0 03/06/17 00:01 95 Nasal Cannula 2.0 03/05/17 23:53 37.5 97 22 151/62 97 Nasal Cannula 2.5 03/05/17 21:27 37.3 108 22 158/79 95 Nasal Cannula 2.0 03/05/17 20:46 109 20 128/91 97 03/05/17 20:00 99 20 142/62 95 Room Air 03/05/17 17:54 100 18 165/97 97 Nasal Cannula 2.0 03/05/17 17:15 100 20 158/98 96 Room Air 03/05/17 16:53 104 03/05/17 16:12 36.8 103 18 160/85 94 Room Air The patient is a well-developed elderly female, no acute distress. She is alert and oriented to person and hospital only. Attention and concentration are impaired. Recent memory impaired. Remote memory intact. Patient has difficulty identifying objects and reading simple text. Her speech is otherwise fluent, however. Comprehension intact. Vocabulary normal. Visual killian are grossly full to confrontation. Visual acuity impaired bilaterally without corrective eyewear. Pupils equal round reactive to light and accommodation. Eye movements intact. No nystagmus. Facial sensation intact bilaterally. There is perhaps mild flattening of the left nasolabial fold. Palate elevates to midline. Tongue protrudes to midline. Shoulder shrug and hearing intact. Sensation intact to light touch, temperature, vibration, and proprioception in all 4 limbs. Deep tendon reflexes are normoactive and symmetric for the arms and legs. Plantar responses downgoing bilaterally. There is no dysmetria with finger to nose or heel to marinelli. Ophthalmoscopic examination reveals normal-appearing optic nerves and posterior elements. No papilledema or hemorrhages. Carotid pulses normal bilaterally, no bruits. Musculoskeletal examination reveals normal strength for the arms and legs bilaterally. Tone normal for the upper and lower limbs. No atrophy. No abnormal movements observed. Laboratory Results Past 24 Hours: 03/06/17 05:12 Red Blood Count 3.62, Mean Corpuscular Volume 90.3, Mean Corpuscular Hemoglobin 29.6, Mean Corpuscular Hemoglobin Concent 32.7, Mean Platelet Volume 8.9, Neutrophils (%) (Auto) 76.6, Lymphocytes (%) (Auto) 8.1, Monocytes (%) (Auto) 14.7, Eosinophils (%) (Auto) 0.5, Basophils (%) (Auto) 0.0, Neutrophils # (Auto ) 6.03, Lymphocytes # (Auto) 0.64, Monocytes # (Auto) 1.16, Eosinophils # (Auto ) 0.04, Basophils # (Auto) 0.00 03/06/17 05:12 Test 03/05/17 16:15 03/05/17 16:40 03/05/17 16:50 03/05/17 19:28 Bedside Glucose 130 mg/dl (70-90) Urine Color DK YELLOW Urine Appearance CLEAR (CLEAR) Urine pH 5.5 (4.5-7.5) Urine Specific [place] 1.018 (1.000-1.030) Urine Protein TRACE (NEG) Urine Glucose (UA) NEG (NEG) Urine Ketones 1+ (NEG) Urine Occult Blood TRACE (NEG) Urine Nitrite NEG (NEG) Urine Bilirubin NEG (NEG) Urine Urobilinogen NEG (NEG) Urine Leukocyte Esterase NEG (NEG) Urine WBC (Auto) 1-5 /hpf (0-5) Urine RBC (Auto) 0-4 /hpf (0-4) Urine Hyaline Casts (Auto) 1-5 /lpf (0-5) Urine Epithelial Cells (Auto) 5-10 /lpf (0-5) Urine Bacteria (Auto) NEG (NEG) Prothrombin Time 12.2 SECONDS (9.0-12.0) Prothromb Time International Ratio 1.1 (0.9-1.1) Venous Blood pH 7.40 (7.36-7.41) Venous Blood Partial Pressure CO2 41 mmHg (38.0-50.0) Venous Blood Partial Pressure O2 35 mmHg Venous Blood HCO3 25 meq/L Venous Blood Oxygen Saturation 64.6 % Venous Blood Base Excess -0.1 mmol/L Estimated Average Glucose 111 mg/dl Hemoglobin A1c 5.5 % (4.5-5.6) Total Bilirubin 0.8 mg/dl (0.2-1) Direct Bilirubin 0.3 mg/dl (0-0.2) Aspartate Amino Transf (AST/SGOT) 187 U/L (15-37) Alanine Aminotransferase (ALT/SGPT) 72 U/L (12-78) Alkaline Phosphatase 267 U/L (45-117) Total Protein 7.1 gm/dl (6.4-8.2) Albumin 3.2 gm/dl (3.4-5.0) Procalcitonin 0.11 ng/ml (0-0.5) Thyroid Stimulating Hormone (TSH) 1.100 uIu/ml (0.300-4.500) Valproic Acid (Depakene) Level < 3 mcg/ml (50-100) Lactic Acid Level 2.0 mmol/L (0.4-2.0) Test 03/06/17 05:12 03/06/17 08:26 White Blood Count 7.88 K/uL (4.8-10.8) Red Blood Count 3.62 M/uL (4.2-5.4) Hemoglobin 10.7 g/dL (12.0-16.0) Hematocrit 32.7 % (37-47) Mean Corpuscular Volume 90.3 fL (80-100) Mean Corpuscular Hemoglobin 29.6 pg (25-34) Mean Corpuscular Hemoglobin Concent 32.7 g/dl (32-36) Platelet Count 288 K/uL (130-400) Mean Platelet Volume 8.9 fL (7.4-10.4) Neutrophils (%) (Auto) 76.6 % Lymphocytes (%) (Auto) 8.1 % Monocytes (%) (Auto) 14.7 % Eosinophils (%) (Auto) 0.5 % Basophils (%) (Auto) 0.0 % Neutrophils # (Auto) 6.03 K/uL (1.4-6.5) Lymphocytes # (Auto) 0.64 K/uL (1.2-3.4) Monocytes # (Auto) 1.16 K/uL (0.11-0.59) Eosinophils # (Auto) 0.04 K/uL (0-0.5) Basophils # (Auto) 0.00 K/uL (0-0.2) RDW Standard Deviation 61.4 fL (36.4-46.3) RDW Coefficient of Variation 18.5 % (11.5-14.5) Immature Granulocyte % (Auto) 0.1 % Immature Granulocyte # (Auto) 0.01 K/uL (0.00-0.02) Anion Gap 6.0 mmol/L (3-11) Est Creatinine Clear Calc Drug Dose 68.6 ml/min Estimated GFR () 108.6 Estimated GFR (Non- 93.7 BUN/Creatinine Ratio 51.9 (10-20) Calcium Level 7.7 mg/dl (8.5-10.1) Magnesium Level 2.3 mg/dl (1.8-2.4) Total Creatine Kinase 1429 U/L (26-192) Creatine Kinase MB 29.4 ng/ml (0.5-3.6) Creatine Kinase MB Ratio 2.1 (0-3.0) Troponin I 0.093 ng/ml (0-0.045) Triglycerides Level 137 mg/dl (0-150) Cholesterol Level 158 mg/dl (0-200) HDL Cholesterol 58 mg/dl LDL Cholesterol, Calculated 73 mg/dl VLDL Cholesterol, Calculated 27 mg/dl Cholesterol/HDL Ratio 2.7 Activated Partial Thromboplast Time 23.8 SECONDS (21.0-31.0) Partial Thromboplastin Ratio 0.9 Impression Persistent confusion. Possible right hemispheric ischemic stroke. Recent identification of atrial fibrillation with rapid ventricular response. Plan Please obtain a brain MRI to support the suspected diagnosis of right hemispheric stroke, presumably cardioembolic etiology in light of recently identified atrial fibrillation. Anticoagulation would be appropriate. If the patient is unable to tolerate brain MRI would consider obtaining a follow -up CT of the head tonight to further exclude interval development of hemorrhage or possibly confirm suspected diagnosis of involving right hemispheric stroke. PT/OT/speech therapy No further immediate recommendations
--- NOTE | 2017-03-06 11:14 | Cardiology Consultation ---
Cardiology Consultation Date of Service March 06, 2017. (Venice Murry PA-C) Cardiology Consultation Attending Repair Operator: Dr. Maier Requesting Provider: Nela Barber PA-C HPI: 71 year old female who is a poor historian and limited records available for review. She recently established with [facility] PCP Dr. Bojorquez in January 2017. She has a history of multiple falls/fractures, GERD, tobacco abuse, anxiety/ depression. She lives alone. She denies history of cardiac issues/problems. She is unsure if she ever saw a data coder operator in the past. According to ER/admission records, patient was found laying on her kitchen floor. Duration unknown. Patient does not recall events. She notes frequent falls, weakness to legs with diffuse upper and lower extremity pain. Upon arrival to ER, patient was found to have tachycardia and concerns for afib were noted. CT of the head demonstrated sub acute infarct without hemorrhage. She was unable to tolerate MRI last night due to movement/discomfort. She was started on IV heparin due to concern for afib. Neurology has been consulted. Upon further review of initial EKG, telemetry, and repeat EKG this AM, no definitive afib has been noted. Likely multifocal atrial tach/wandering atrial pacemaker with short bursts of PSVT. Patient currently sitting in bed feeling ok. Notes chronic/diffuse pain but unable to characterize or locate specific complaints. Denies current chest pain , palpitations, shortness of breath. no orthopnea, PND or edema. She does adm itt o frequent dizziness but is unable to correlate dizziness with falls. Review of systems: Full ROS unreliable. patient poor historian. 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 Social History: Lives alone. 6 children. Tobacco abuse. No alcohol abuse. Reported Home Medications Medications Dose Route/Sig Max Daily Dose Days Date Category Dose Instructions Depakote (Divalproex Sodium) 500 Mg Tab 500 Mg PO DAILY 30 03/05/17 Reported Prinivil (Lisinopril) 20 Mg Tab 20 Mg PO DAILY 03/05/17 Reported Robaxin (Methocarbamol) 500 Mg Tab 1,000 Mg PO QID 03/05/17 Reported Ativan (Lorazepam) 1 Mg Tab 1 Mg PO HS PRN 03/05/17 Reported [place] 5MG/325MG (Acetaminophen/Hydrocodone Bitart) Tab 1 Tablet PO Q6 PRN 03/05/17 Reported PRN PAIN Imitrex (Sumatriptan Succinate) 50 Mg Tab 50 Mg PO PRN PRN 03/05/17 Reported Paroxetine (Paroxetine HCl) 40 Mg Tab 1.5 Tab PO DAILY 03/05/17 Reported Zolpidem Tartrate 5 Mg Tab 5 Mg PO HS PRN 03/05/17 Reported Review of patient's allergies indicates: Iodinated Diagnostic Agents -Anaphylaxis CT DYE OBJECTIVE: Last 8 Hrs Date Time Temp Pulse Resp B/P Pulse Ox O2 Delivery O2 Flow Rate FiO2 03/06/17 07:45 37.2 77 20 154/70 100 Room Air 03/06/17 04:00 100 Nasal Cannula 2.0 03/06/17 03:27 36.9 101 22 134/78 100 Nasal Cannula 3.0 General: elderly female who appears older than stated age. NAD. Skin: skin color, texture, turgor are normal, no rashes or significant lesions Head: Normocephalic, No masses, lesions, tenderness or abnormalities Eye Exam: PERRLA, EOMI, Conjunctiva are pink and non-injected, sclera clear Neck: supple, no adenopathy, no bruits, thyroid normal size, non-tender, without nodularity Heart: regular rate & rhythm, no murmurs and no gallops Lungs: chest symmetric with normal AP diameter, no chest deformities noted, no chest wall tenderness, lungs clear to auscultation Pulses: radial=2/4, carotid=2/4 w/o bruits, posterior tibial=2/4 Abdomen: abdomen soft, non-tender, normal bowel sounds and no masses or organomegaly Exremities: No edema. DATA: EKG on admission: Poor quality tracing - Appears to be Multifocal atrial tach Repeat EKG this AM reviewed: Possible wandering atrial pacemaker with occasional Premature ventricular complexes Septal infarct (cited on or before 05-MAR-2017) ST & T wave abnormality, consider lateral ischemia Abnormal ECG When compared with ECG of 05-MAR-2017 16:23, No significant change Echocardiogram 03/06/17: * -- Conclusions -- * Normal LV chamber size with mild concentric LVH, sigmoid appearing septum. * Normal LV systolic function, EF 55-60%. * No segmental left ventricular wall motion abnormalities are noted. * Aortic valve sclerosis mild, without significant aortic valvular stenosis. * Mild tricuspid regurgitation. * Small, loculated posterior pericardial effusion Telemetry reviewed - Multifocal atrial tach/wandering atrial pacemaker. No definitive episodes of atrial fibrillation. Chest xray: IMPRESSION: Nonvisualization left upper lung has the head overlies this region Fixed hiatal hernia. The right lung and left base are clear. Head CT 03/05/17 on admission: Impression: Possible small subacute right periventricular infarct. Age-related atrophy and chronic small vessel change. No acute intracranial hemorrhage. Head CT, repeat on 03/06/17: IMPRESSION: Senescent changes as above with no hemorrhage, mass effect, or evidence of acute territorial ischemia by CT criteria noting a significantly motion degraded examination. ASSESSMENT: 1. Weakness/falls/mental status changes - multifactorial 2. Multifocal atrial tachycardia, no definitive atrial fibrillation 3. subacute CVA 4. Hypertension 5. subacute pelvic fracture PLAN: Upon review of telemetry, admission and serial EKG's, there is no evidence of afib. Irregularity is consistent with MAT. Strips/telemetry reviewed with Dr. Maier. Normal echo Given her history of significant falls/injuries, she is not a candidate for care home anticoagulation therapy. Anticoagulation currently not indicated. Her hbg has dropped from 13 to 10 with IV heparin. Will discontinue IV heparin at this time. Would continue ASA given recent findings of CVA on CT of the head. Will need PT/OT and likely placement (Venice Murry PA-C) Cardiology attending: Pt seen and examined, agree with findings and assessment as per Venice Parisi. No atrial fibrillation present, there is organized atrial activity. A combination of sinus rhythm, wandering atrial pacemaker/MAT and frequent PAC's. Will give low dose beta diana to calm ectopy. No role for anticoagulation from a cardiac arrhythmia standpoint. (Fabian Maier, [email or web address].)
[2017-03-06] MEDS ORDERED: METOPROLOL TARTRATE 1 MG/ML VIAL IV STA (11:47)
--- NOTE | 2017-03-06 13:03 | Progress Note ---
Internal Med Progress Note Date of Service: March 06, 2017. Provider Documentation: SUBJECTIVE: The patient was seen and examined Falls back to sleep after a few words Complains of pain all over but notably right Hip,Back and Legs Pain has been ongoing for the last 1 and a 1/2months H/O fall before and recently as of yesterday OBJECTIVE: Vital Signs-as noted below Exam: General-no distress at rest Eyes-Normnal ENT-normal Neck-supple Lungs-clear to auscultate bilaterally Heart-Regular,no murmur appreciated Abdomen-Benign,no masses,bowel sound present Extremities-No edema Musculoskeletal: No acute arthritis .Painful movement of the right hip Neuro-AAOx3 Generally weak Lab data as noted below. ASSESSMENT & PLAN: ALTERED MENTAL STATUS Presents with fall, confusion, blurred vision Differential includes TIA/CVA, metabolic encephalopathy due to medication, infection and/or dehydration Received dose of cefepime in ED and not continued Blood cx and urine cx pending Hold Ativan, [place], Ambien, methocarbamol for AMS Clinically stable RULE OUT CVA Risk factors- HTN, Afib-noted in ER CT head- Possible small subacute right periventricular infarct. Age-related atrophy and chronic small vessel change. No acute intracranial hemorrhage. Check MRI brain, MRA head and neck-has not been possible due to movement ECHO: Normal LV chamber size with mild concentric LVH, sigmoid appearing septum. * Normal LV systolic function, EF 55-60%. * No segmental left ventricular wall motion abnormalities are noted. * Aortic valve sclerosis mild, without significant aortic valvular stenosis. * Mild tricuspid regurgitation. * Small, loculated posterior pericardial effusion. NO ASD and PFO was not assessed Placed on aspirin and statin Appreciate Neurology input If MRI is not possible will get CT tomorrow Subacute/Acute Pelvic Fracture on X-ray Ambulatory dysfunction with frequent falls Recent Right HIP replacement Ortho consulted Minimally high CPK From fall will monitor AFIB WITH RVR- NEWLY DIAGNOSED Rate ~100 Potassium low- replacing; check mag- ok; TSH WNL Lopressor 2.5 mg PRN HR >110 CHADS2 score- 1 for HTN plus 1-2 if she is truly having TIA or CVA Started on IH Heparin,stopped this AM following Cardiology evaluation NO A trial Fibrillation identified Only Aspirin S/P FALL Unclear details, unwitnessed Check x-ray bilateral hip to r/o fx due to pain with ROM MILD RHABDOMYOLYSIS Secondary to fall CK ~4000 Continue IVF's Recheck CK in am Weight Loss Underweight/cachectic, mild/moderate protein-calorie malnutrition [employer] consulted MILD TROPONIN ELEVATION Troponin is 0.1 No angina; possibly due to AF with RVR EKG- AF with RVR, no STTWA Trend serial cardiac enzymes HYPOKALEMIA Replace and monitor Check mag HISTORY OF MIGRAINE Depakote level OK- continue Depakote DEPRESSION Continue Paxil GERD Continue PPI DVT PROPHYLAXIS Heparin SQ CODE STATUS Full code per my discussion with son Juvencio who is POA via phone call. He wishes to receive updates with any changes at [phone]. DISPOSITION Follows w/ Dr. Bojorquez for primary care Lives alone which is unsafe for her; psychotherapist social worker consulted for discharge planning Discussed with the Son and Son-in-law Vital Signs: Date Time Temp Pulse Resp B/P Pulse Ox O2 Delivery O2 Flow Rate FiO2 03/06/17 12:13 36.8 77 18 148/93 96 03/06/17 11:47 112 03/06/17 11:46 100 Nasal Cannula 2.0 03/06/17 08:00 Nasal Cannula 2.0 03/06/17 07:45 37.2 77 20 154/70 100 Room Air 03/06/17 04:00 100 Nasal Cannula 2.0 03/06/17 03:27 36.9 101 22 134/78 100 Nasal Cannula 3.0 03/06/17 00:01 95 Nasal Cannula 2.0 03/05/17 23:53 37.5 97 22 151/62 97 Nasal Cannula 2.5 03/05/17 21:27 37.3 108 22 158/79 95 Nasal Cannula 2.0 03/05/17 20:46 109 20 128/91 97 03/05/17 20:00 99 20 142/62 95 Room Air 03/05/17 17:54 100 18 165/97 97 Nasal Cannula 2.0 03/05/17 17:15 100 20 158/98 96 Room Air 03/05/17 16:53 104 03/05/17 16:12 36.8 103 18 160/85 94 Room Air Lab Results: Results Past 24 Hours Test 03/05/17 16:15 03/05/17 16:40 03/05/17 16:50 03/05/17 19:28 Range/Units Bedside Glucose 130 70-90 mg/dl Urine Color DK YELLOW Urine Appearance CLEAR CLEAR Urine pH 5.5 4.5-7.5 Urine Specific [place] 1.018 1.000-1.030 Urine Protein TRACE NEG Urine Glucose (UA) NEG NEG Urine Ketones 1+ NEG Urine Occult Blood TRACE NEG Urine Nitrite NEG NEG Urine Bilirubin NEG NEG Urine Urobilinogen NEG NEG Urine Leukocyte Esterase NEG NEG Urine WBC (Auto) 1-5 0-5 /hpf Urine RBC (Auto) 0-4 0-4 /hpf Urine Hyaline Casts (Auto) 1-5 0-5 /lpf Urine Epithelial Cells (Auto) 5-10 0-5 /lpf Urine Bacteria (Auto) NEG NEG White Blood Count 14.65 4.8-10.8 K/uL Red Blood Count 4.40 4.2-5.4 M/uL Hemoglobin 13.0 12.0-16.0 g/dL Hematocrit 39.3 37-47 % Mean Corpuscular Volume 89.3 80-100 fL Mean Corpuscular Hemoglobin 29.5 25-34 pg Mean Corpuscular Hemoglobin Concent 33.1 32-36 g/dl Platelet Count 379 130-400 K/uL Mean Platelet Volume 9.5 7.4-10.4 fL Neutrophils (%) (Auto) 86.6 % Lymphocytes (%) (Auto) 7.2 % Monocytes (%) (Auto) 5.7 % Eosinophils (%) (Auto) 0.1 % Basophils (%) (Auto) 0.1 % Neutrophils # (Auto) 12.70 1.4-6.5 K/uL Lymphocytes # (Auto) 1.06 1.2-3.4 K/uL Monocytes # (Auto) 0.83 0.11-0.59 K/uL Eosinophils # (Auto) 0.01 0-0.5 K/uL Basophils # (Auto) 0.01 0-0.2 K/uL RDW Standard Deviation 60.5 36.4-46.3 fL RDW Coefficient of Variation 18.4 11.5-14.5 % Immature Granulocyte % (Auto) 0.3 % Immature Granulocyte # (Auto) 0.04 0.00-0.02 K/uL Prothrombin Time 12.2 9.0-12.0 SECONDS Prothromb Time International Ratio 1.1 0.9-1.1 Activated Partial Thromboplast Time 23.8 21.0-31.0 SECONDS Partial Thromboplastin Ratio 0.9 Venous Blood pH 7.40 7.36-7.41 Venous Blood Partial Pressure CO2 41 38.0-50.0 mmHg Venous Blood Partial Pressure O2 35 mmHg Venous Blood HCO3 25 meq/L Venous Blood Oxygen Saturation 64.6 % Venous Blood Base Excess -0.1 mmol/L Sodium Level 143 136-145 mmol/L Potassium Level 3.0 3.5-5.1 mmol/L Chloride Level 105 98-107 mmol/L Carbon Dioxide Level 26 21-32 mmol/L Anion Gap 12.0 3-11 mmol/L Blood Urea Nitrogen 44 7-18 mg/dl Creatinine 0.81 0.60-1.20 mg/dl Est Creatinine Clear Calc Drug Dose 46.9 ml/min Estimated GFR () 84.1 Estimated GFR (Non- 72.6 BUN/Creatinine Ratio 53.7 10-20 Random Glucose 109 70-99 mg/dl Estimated Average Glucose 111 mg/dl Hemoglobin A1c 5.5 4.5-5.6 % Calcium Level 8.8 8.5-10.1 mg/dl Magnesium Level 2.7 1.8-2.4 mg/dl Total Bilirubin 0.8 0.2-1 mg/dl Direct Bilirubin 0.3 0-0.2 mg/dl Aspartate Amino Transf (AST/SGOT) 187 15-37 U/L Alanine Aminotransferase (ALT/SGPT) 72 12-78 U/L Alkaline Phosphatase 267 45-117 U/L Total Creatine Kinase 4049 26-192 U/L Troponin I 0.110 0-0.045 ng/ml Total Protein 7.1 6.4-8.2 gm/dl Albumin 3.2 3.4-5.0 gm/dl Procalcitonin 0.11 0-0.5 ng/ml Thyroid Stimulating Hormone (TSH) 1.100 0.300-4.500 uIu/ml Valproic Acid (Depakene) Level < 3 50-100 mcg/ml Lactic Acid Level 2.0 0.4-2.0 mmol/L Test 03/05/17 23:15 03/06/17 00:37 03/06/17 05:12 03/06/17 08:26 Range/Units Total Creatine Kinase 2149 1429 26-192 U/L Creatine Kinase MB 51.4 29.4 0.5-3.6 ng/ml Creatine Kinase MB Ratio 2.1 0-3.0 Troponin I 0.101 0.093 0-0.045 ng/ml White Blood Count 7.88 4.8-10.8 K/uL Red Blood Count 3.62 4.2-5.4 M/uL Hemoglobin 10.7 12.0-16.0 g/dL Hematocrit 32.7 37-47 % Mean Corpuscular Volume 90.3 80-100 fL Mean Corpuscular Hemoglobin 29.6 25-34 pg Mean Corpuscular Hemoglobin Concent 32.7 32-36 g/dl Platelet Count 288 130-400 K/uL Mean Platelet Volume 8.9 7.4-10.4 fL Neutrophils (%) (Auto) 76.6 % Lymphocytes (%) (Auto) 8.1 % Monocytes (%) (Auto) 14.7 % Eosinophils (%) (Auto) 0.5 % Basophils (%) (Auto) 0.0 % Neutrophils # (Auto) 6.03 1.4-6.5 K/uL Lymphocytes # (Auto) 0.64 1.2-3.4 K/uL Monocytes # (Auto) 1.16 0.11-0.59 K/uL Eosinophils # (Auto) 0.04 0-0.5 K/uL Basophils # (Auto) 0.00 0-0.2 K/uL RDW Standard Deviation 61.4 36.4-46.3 fL RDW Coefficient of Variation 18.5 11.5-14.5 % Immature Granulocyte % (Auto) 0.1 % Immature Granulocyte # (Auto) 0.01 0.00-0.02 K/uL Sodium Level 145 136-145 mmol/L Potassium Level 3.7 3.5-5.1 mmol/L Chloride Level 115 98-107 mmol/L Carbon Dioxide Level 24 21-32 mmol/L Anion Gap 6.0 3-11 mmol/L Blood Urea Nitrogen 29 7-18 mg/dl Creatinine 0.55 0.60-1.20 mg/dl Est Creatinine Clear Calc Drug Dose 68.6 ml/min Estimated GFR () 108.6 Estimated GFR (Non- 93.7 BUN/Creatinine Ratio 51.9 10-20 Random Glucose 97 70-99 mg/dl Calcium Level 7.7 8.5-10.1 mg/dl Magnesium Level 2.3 1.8-2.4 mg/dl Triglycerides Level 137 0-150 mg/dl Cholesterol Level 158 0-200 mg/dl HDL Cholesterol 58 mg/dl LDL Cholesterol, Calculated 73 mg/dl VLDL Cholesterol, Calculated 27 mg/dl Cholesterol/HDL Ratio 2.7 Activated Partial Thromboplast Time 23.8 21.0-31.0 SECONDS Partial Thromboplastin Ratio 0.9
[2017-03-06] MEDS: ACETAMINOPHEN 325 MG TAB PO PRN (16:40)
[2017-03-06] MEDS ORDERED: NURSING VERBAL MED ORDER ONE (17:15)
[2017-03-06] MEDS: ATORVASTATIN 40 MG TAB PO SCH (19:30)
[2017-03-06] MEDS: METOPROLOL TARTRATE 25 MG TAB PO SCH (19:30)
[2017-03-07] MEDS: METOPROLOL TARTRATE 25 MG TAB PO SCH ×3 (00:05→20:35)
[2017-03-07] MEDS: ACETAMINOPHEN 325 MG TAB PO PRN ×3 (00:06→14:15)
--- NOTE | 2017-03-07 01:05 | ORTHOPEDIC CONSULTATION ---
DATE OF CONSULTATION: 03/06/2017 HISTORY OF PRESENT ILLNESS: This is a 71-year-old female seen at the request of Dr. Figueroa and Dr. Jolly, for lower extremity pain and fracture of the pelvis. The 71-year-old female fell at home but does not recall the details. The fall was unwitnessed. The patient was found on 03/05/2017 in her home by the police department. She was found naked in the position on the floor of her kitchen. EMS was called and the patient was brought to the Emergency Department by ambulance. The patient states she has multiple falls. She uses a walker at home. She lives alone. She fell and broke her right hip in June 2016 and had a hemiarthroplasty for her right hip in [facility]. She fell and fractured her right proximal humerus in November 2016. The patient was admitted by the Department of Medicine for multiple other medical concerns and patient has complained of hip and pelvic pain. Radiographs were obtained, noted to have a pelvic fracture on the left which was acute and subacute fracture on the right pubic rami. PAST MEDICAL HISTORY: Anxiety, depression, GERD, gastroesophageal reflux disease, hypertension, kyphosis of the thoracic spine, migraine headaches, squamous cell carcinoma, history of multiple recent falls. PAST SURGICAL HISTORY: Hemiarthroplasty of the right hip, history of shoulder surgery, and history of hysterectomy. ALLERGIES: IODINATED CONTRAST AGENTS, SEVERE ANAPHYLAXIS; IODINE, allergy unknown. MEDICATIONS: Depakote 500 mg daily, Prinivil 20 mg daily, Robaxin 1000 mg p.o. q.i.d., paroxetine 12.5 mg p.o. daily, [place] 5 mg/325 mg 1 p.o. q. 6 p.r.n. pain, Ativan 1 mg p.o. at bedtime p.r.n. sleep, Imitrex 50 mg p.o. p.r.n. for headaches, zolpidem tartrate 5 mg p.o. at bedtime p.r.n. sleep. SOCIAL HISTORY: She smokes 1 pack a day of cigarettes. Denies drug use. She drinks alcohol socially. She is . She lives alone. She is retired. PHYSICAL EXAMINATION: GENERAL: This is a 71-year-old female lying supine in her hospital room bed. She appears alert and oriented x3. Speech clear and fluent. Affect is appropriate. EXTREMITIES: Examination of bilateral lower extremities and pelvis demonstrates a right leg length discrepancy of approximately 2 cm. Range of motion is symmetric; however, limited in bilateral lower extremities. She has tenderness to palpation to the right groin and left hemipelvis. Some minor discomfort with pelvic rock. No pain with pelvic compression. No pain with heel strike, bilaterally. Left pubic ramus is tender to palpation. Limited range of motion due to pain and guarding on the left compared to the right. The right hip joint is reduced as well as the left hip joint. She has complaints of minor right knee pain during the examination. She does note to have a varus deformity of her right knee with prominence of the medial joint line and tenderness to palpation of the medial joint line. No erythema or streaking. Dorsalis pedis and posterior tibial pulses are 2/4, bilateral lower extremities. Feet are warm. Cap refill is brisk, 2 seconds. LABORATORIES: Reviewed. IMAGING DATA: Radiographs of the pelvis and bilateral hips demonstrate a right hip hemiarthroplasty which appears to have some degree of subsidence, approximately 1.5-2 cm. There appears to be no fracture of the hip. No fracture line in the proximal femur. There appears to be a subacute fracture of the superior and inferior pubic ramus on the right. There is an acute left superior and inferior pubic rami fractures. The SI joints appear intact without any evidence of obvious dislocation or fracture. 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 IMPRESSION: 1. Left acute superior and inferior pubic ramus fractures, nonoperative. 2. Right chronic superior and inferior pubic ramus fractures, nonoperative. 3. Status post right hemiarthroplasty of the hip with subsidence and leg length discrepancy of the femoral component. RECOMMENDATIONS: At this time, recommend nonoperative management, begin weightbearing as tolerated with a walker and suitably refer this patient to inpatient rehabilitation versus a long-term facility with physical therapy services. The patient is not safe for discharge home as she is a high fall risk. Thank you for the opportunity to consult in the care of this patient.
[2017-03-07 04:00] VITALS: BP 128/71; PULSE 60; TEMP 36.9; O2SAT 95
[2017-03-07 07:14] LABS: BASO % 0.2 %; BASO ABS # 0.01 K/uL (0-0.2); COMPLETE YES; EOS % 4.4 %; HEMATOCRIT 32.3 % (37-47); IG% 0.2 %; LYMPH % 25.2 %; LYMPH ABS # 1.48 K/uL (1.2-3.4); MEAN CELL VOLUME 91.5 fL (80-100); MEAN CORPUSCULAR HEMOGLOBIN 29.2 pg (25-34); MEAN CORPUSCULAR HGB CONC 31.9 g/dl (32-36); MEAN PLATELET VOLUME 8.9 fL (7.4-10.4); MONO % 10.7 %; NEUT % 59.3 %; PLATELET COUNT 278 K/uL (130-400); RED BLOOD COUNT 3.53 M/uL (4.2-5.4); WHITE BLOOD COUNT 5.87 K/uL (4.8-10.8)
[2017-03-07 07:47] VITALS: BP_SYST 170; BP_SYST 180; BP_DIAS 81; BP_DIAS 96; PULSE 52; TEMP 36.7; O2SAT 94
[2017-03-07 08:03] LABS: BUN/CREATININE RATIO 28.4 (10-20); CALCIUM 7.7 mg/dl (8.5-10.1); CREATININE 0.44 mg/dl (0.60-1.20); POTASSIUM 3.2 mmol/L (3.5-5.1)
[2017-03-07] MEDS: PAROXETINE 20 MG TAB PO SCH (08:06)
[2017-03-07] MEDS: ASPIRIN 325 MG ECTAB PO SCH (08:07)
[2017-03-07] MEDS: LISINOPRIL 20 MG TAB PO SCH (08:07)
[2017-03-07] MEDS: DIVALPROEX SODIUM 500 MG DELAY RELEASE TAB PO SCH (08:07)
[2017-03-07] MEDS ORDERED: POTASSIUM CHLORIDE 10 MEQ TABCR PO STA (09:01)
[2017-03-07] MEDS: SODIUM CHLORIDE 0.9% 1000ML 1,000 ML IV SCH ×2 (09:44→23:04)
--- NOTE | 2017-03-07 09:48 | Orthopedic Progress Note ---
Orthopedic Progress Note Date of Service March 07, 2017. Subjective Additional Notes: Patient is still having pain in the buttocks at the fx sites. States she has been unable to walk because of the pain. Objective calves soft nontender, N/V intact, capillary refill less than 2 sec., A&O x3, toes mobile Tender at the right and left pubic ramus. Right hip has acceptable ROM with some pain. Stable exam compared to yesterday's exam. Date Time Temp Pulse Resp B/P Pulse Ox O2 Delivery O2 Flow Rate FiO2 03/07/17 08:00 Room Air 03/07/17 07:47 36.7 52 20 170/96 94 Room Air 180/81 03/07/17 04:00 36.9 60 16 128/71 95 Room Air 03/07/17 04:00 Room Air 03/07/17 00:00 Nasal Cannula 2.0 03/06/17 23:54 37.6 67 18 120/76 94 Room Air 03/06/17 20:00 Nasal Cannula 2.0 03/06/17 19:26 37.2 72 18 129/72 94 Nasal Cannula 2.0 03/06/17 16:00 Nasal Cannula 2.0 03/06/17 12:13 36.8 77 18 148/93 96 03/06/17 11:47 112 03/06/17 11:46 100 Nasal Cannula 2.0 Laboratory Results 24 Hours: Test 03/07/17 06:50 White Blood Count 5.87 K/uL Red Blood Count 3.53 M/uL Hemoglobin 10.3 g/dL Hematocrit 32.3 % Mean Corpuscular Volume 91.5 fL Mean Corpuscular Hemoglobin 29.2 pg Mean Corpuscular Hemoglobin Concent 31.9 g/dl Platelet Count 278 K/uL Mean Platelet Volume 8.9 fL Neutrophils (%) (Auto) 59.3 % Lymphocytes (%) (Auto) 25.2 % Monocytes (%) (Auto) 10.7 % Eosinophils (%) (Auto) 4.4 % Basophils (%) (Auto) 0.2 % Neutrophils # (Auto) 3.48 K/uL Lymphocytes # (Auto) 1.48 K/uL Monocytes # (Auto) 0.63 K/uL Eosinophils # (Auto) 0.26 K/uL Basophils # (Auto) 0.01 K/uL Assessment & Plan Assessment: 1. Left acute superior and inferior pubic ramus fractures, nonoperative. 2. Right chronic superior and inferior pubic ramus fractures, nonoperative. 3. Status post right hemiarthroplasty of the hip with subsidence and leg length discrepancy of the femoral component Plan: Pain control WBAT BLE with assistance. At this time, tx will be non surgical. She may require on the right bipolar hemiarthroplasty at some point. Stable from ortho standpoint. Will sign off at this time. Please call with any questions.
--- NOTE | 2017-03-07 11:44 | CARDIOLOGY PROGRESS NOTE ---
DATE: 03/07/2017 DATE: 03/07/2017. The patient seen and examined. Chart, medications, telemetry reviewed. SUBJECTIVE: The patient does answer questions this morning and "feels okay". Denies any specific chest pain or discomfort. Notes no dizziness, lightheadedness, syncope or near syncope. Has pain in hip, back and legs. Will arouse to stimulation. OBJECTIVE: VITAL SIGNS: Heart rate is 52. Blood pressure is 170/96 this morning. Telemetry reveals sinus rhythm with wandering atrial pacemaker, premature atrial beats. No atrial fibrillation. NECK: Thin. There is no jugular venous distention. No carotid bruits. HEAD, EYES, EARS, NOSE, AND THROAT EXAMINATION: Unremarkable. LUNGS: Reveal diminished breath sounds but are predominantly clear. CARDIOVASCULAR EXAMINATION: Regular with atrial ectopic beats audible. There is a less than grade 1/6 systolic murmur. There is no diastolic murmur. ABDOMEN: Soft. There is no palpable hepatosplenomegaly. EXTREMITIES: Without cyanosis or clubbing. There is no peripheral edema. NEUROLOGIC: The patient is groggy but will respond to questioning. LABORATORY DATA: White cell count is 5.8, hemoglobin is 10.3, hematocrit 32.3. Sodium 144, potassium is 3.2, chloride is 112, bicarbonate 25, BUN 12, creatinine 0.44. Lipids day prior demonstrated total cholesterol 158 with LDL 72 and HDL 58. IMPRESSION: A 71-year-old female admitted with change in mental status after being found minimally responsive at home. Currently undergoing neurologic evaluation. On initial presentation, the patient was tachycardic. Findings were sinus tachycardia with frequent atrial ectopy. She has had a wandering atrial pacemaker on telemetry since admission, no acute cardiac decline. Echocardiogram demonstrates preserved left ventricular systolic function. RECOMMENDATIONS: Continue low dose beta diana, but will reduce metoprolol back to 12.5 mg twice per day given relatively low heart rates at times. Continue aspirin, lisinopril for hypertension control, though this may need to be increased as clinical course progresses. Potassium has been supplemented. Will reduce IV back to 75 mL having already received 4 liters or greater fluid resuscitation. Will follow patient as clinical course progresses. [facility]
[2017-03-07 12:00] VITALS: BP 164/89; PULSE 70; TEMP 36.7; O2SAT 96
[2017-03-07] MEDS ORDERED: MoRPHine SULFATE 2 MG/ML CARP IV STA (13:06)
[2017-03-07] MEDS ORDERED: MoRPHine SULFATE 2 MG/ML CARP ONE (13:14)
--- NOTE | 2017-03-07 14:18 | DIAGNOSTIC IMAGING REPORT ---
MRI OF THE BRAIN WITHOUT IV CONTRAST CLINICAL HISTORY: Strokelike symptoms. Change in mental status. COMPARISON STUDY: CT of the brain dated 03/06/2017. TECHNIQUE: MRI of the brain was performed utilizing various T1 and T2-weighted sequences in the axial, sagittal, and coronal planes. IV contrast was not administered for this examination. The examination is degraded by motion artifact. FINDINGS: Brain parenchyma: There are age-related involutional changes noting moderate to advanced subcortical and periventricular microangiopathic disease. There is no hemorrhage or mass effect. There is no restricted diffusion to suggest acute ischemia. Hassan-white matter differentiation is preserved. Small chronic lacunar infarcts are identified within the thalami and brainstem. No extra-axial fluid collection is seen. The cerebellar tonsils are normal in configuration. Ventricles, sulci, and cisterns: Normal in configuration. Pituitary and sella: Unremarkable. Intracranial vasculature: Normal flow voids are maintained at the skull base. Orbits: The bony orbits are grossly intact. Orbital contents are normal in appearance. Sinuses and mastoids: Clear. Calvarium: Unremarkable. Cervical cord: Partially visualized cervical spinal cord is normal in morphology and signal intensity. IMPRESSION: Senescent changes as above. There is no acute intracranial abnormality noting a motion degraded examination. Electronically signed by: Gary Mitchell M.D. 03/07/2017 2:17 PM Dictated Date/Time: 03/07/2017 2:14 PM
--- NOTE | 2017-03-07 14:45 | DIAGNOSTIC IMAGING REPORT ---
MR ANGIOGRAM OF THE NECK COMBO CLINICAL HISTORY: Change in mental status. COMPARISON STUDY: No priors. TECHNIQUE: Axial 3-D [id number] MR angiography of the neck is performed. Subsequently, following the IV administration of 5 cc of Gadavist coronal MR angiogram of the neck was performed to corroborate the findings. 3-D reformats are created and assessed. All measurements were calculated based on NASCET criteria. Subtraction imaging was utilized. The Examination is significantly compromised by motion artifact. FINDINGS: Visualized portions of the thoracic aorta are normal in caliber. The aortic arch demonstrates bovine variant anatomy. The subclavian arteries are patent as visualized. The right common carotid artery appears patent, as do the right internal and external carotid arteries. The left common carotid artery appears patent, as are the left internal and external carotid arteries. The vertebral arteries appear patent and are codominant. The origins of the vertebral arteries are not well assessed. IMPRESSION: Grossly unremarkable MR angiogram of the neck noting a significantly motion degraded examination. Electronically signed by: Gary Mitchell M.D. 03/07/2017 2:43 PM Dictated Date/Time: 03/07/2017 2:40 PM
--- NOTE | 2017-03-07 14:50 | Progress Note ---
Internal Med Progress Note Date of Service: March 07, 2017. Provider Documentation: SUBJECTIVE: The patient was seen and examined Complains of pain all over but notably right Hip,Back and Legs Pain has been ongoing for the last 1 and a 1/2months H/O fall before Complains fo left shoulder pain OBJECTIVE: Vital Signs-as noted below Exam: General-no distress at rest Eyes-Normal ENT-normal Neck-supple Lungs-clear to auscultate bilaterally Heart-Regular,no murmur appreciated Abdomen-Benign,no masses,bowel sound present Extremities-No edema Musculoskeletal: No acute arthritis .Painful movement of the right hip Left shoulder movement is restricted and painful Neuro-AAOx3 Generally weak Lab data as noted below. ASSESSMENT & PLAN: ALTERED MENTAL STATUS Presents with fall, confusion, blurred vision Differential includes TIA/CVA, metabolic encephalopathy due to medication, infection and/or dehydration Initial CT of the Head-Possible small subacute right periventricular infarct, not shown in repeat and on in MRI MRA is pending Received dose of cefepime in ED and not continued Hold Ativan, [place], Ambien, methocarbamol for AMS Clinically stable RULE OUT CVA Risk factors- HTN, Afib-noted in ER CT head- Possible small subacute right periventricular infarct. Age-related atrophy and chronic small vessel change. No acute intracranial hemorrhage. Check MRI brain, MRA head and neck-has not been possible due to movement ECHO: Normal LV chamber size with mild concentric LVH, sigmoid appearing septum. * Normal LV systolic function, EF 55-60%. * No segmental left ventricular wall motion abnormalities are noted. * Aortic valve sclerosis mild, without significant aortic valvular stenosis. * Mild tricuspid regurgitation. * Small, loculated posterior pericardial effusion. NO ASD and PFO was not assessed Placed on aspirin and statin Appreciate Neurology input MRI: There is no acute intracranial abnormality noting a motion degraded examination. Clinically no focal neuro deficit Subacute/Acute Pelvic Fracture on X-ray Ambulatory dysfunction with frequent falls Recent Right HIP replacement Ortho consulted -appreciate Input PT and brace -no surgery Minimally high CPK From fall will monitor Tachyarrhythmia-secondary to MAT AFIB WITH RVR- ruled out Potassium low- replacing; check mag- ok; TSH WNL Lopressor 2.5 mg PRN HR >110 CHADS2 score- 1 for HTN plus 1-2 if she is truly having TIA or CVA Started on IH Heparin,stopped this AM following Cardiology evaluation Only Aspirin S/P FALL Unclear details, unwitnessed Check x-ray bilateral hip to r/o fx due to pain with ROM Will need rehab MILD RHABDOMYOLYSIS Secondary to fall CK ~4000 Continue IVF's Weight Loss Underweight/cachectic, mild/moderate protein-calorie malnutrition Nutrition service consulted MILD TROPONIN ELEVATION Troponin is 0.1 No angina; possibly due to AF with RVR EKG- AF with RVR, no STTWA Trend serial cardiac enzymes-No ACS Small dose of BB added HYPOKALEMIA Replace and monitor Check mag HISTORY OF MIGRAINE Depakote level OK- continue Depakote DEPRESSION Continue Paxil GERD Continue PPI DVT PROPHYLAXIS Heparin SQ CODE STATUS Full code per my discussion with son Juvencio who is POA via phone call. He wishes to receive updates with any changes at [phone]. DISPOSITION Follows w/ Dr. Bojorquez for primary care Lives alone which is unsafe for her; long term care social worker consulted for discharge planning Discussed with the Son and Grandson Vital Signs: Date Time Temp Pulse Resp B/P Pulse Ox O2 Delivery O2 Flow Rate FiO2 03/07/17 12:00 36.7 70 16 164/89 96 Room Air 03/07/17 12:00 Room Air 03/07/17 08:00 Room Air 03/07/17 07:47 36.7 52 20 170/96 94 Room Air 180/81 03/07/17 04:00 36.9 60 16 128/71 95 Room Air 03/07/17 04:00 Room Air 03/07/17 00:00 Nasal Cannula 2.0 03/06/17 23:54 37.6 67 18 120/76 94 Room Air 03/06/17 20:00 Nasal Cannula 2.0 03/06/17 19:26 37.2 72 18 129/72 94 Nasal Cannula 2.0 03/06/17 16:00 Nasal Cannula 2.0 Lab Results: Results Past 24 Hours Test 03/07/17 06:50 Range/Units White Blood Count 5.87 4.8-10.8 K/uL Red Blood Count 3.53 4.2-5.4 M/uL Hemoglobin 10.3 12.0-16.0 g/dL Hematocrit 32.3 37-47 % Mean Corpuscular Volume 91.5 80-100 fL Mean Corpuscular Hemoglobin 29.2 25-34 pg Mean Corpuscular Hemoglobin Concent 31.9 32-36 g/dl Platelet Count 278 130-400 K/uL Mean Platelet Volume 8.9 7.4-10.4 fL Neutrophils (%) (Auto) 59.3 % Lymphocytes (%) (Auto) 25.2 % Monocytes (%) (Auto) 10.7 % Eosinophils (%) (Auto) 4.4 % Basophils (%) (Auto) 0.2 % Neutrophils # (Auto) 3.48 1.4-6.5 K/uL Lymphocytes # (Auto) 1.48 1.2-3.4 K/uL Monocytes # (Auto) 0.63 0.11-0.59 K/uL Eosinophils # (Auto) 0.26 0-0.5 K/uL Basophils # (Auto) 0.01 0-0.2 K/uL RDW Standard Deviation 62.3 36.4-46.3 fL RDW Coefficient of Variation 18.5 11.5-14.5 % Immature Granulocyte % (Auto) 0.2 % Immature Granulocyte # (Auto) 0.01 0.00-0.02 K/uL Activated Partial Thromboplast Time 25.7 21.0-31.0 SECONDS Partial Thromboplastin Ratio 1.0 Sodium Level 144 136-145 mmol/L Potassium Level 3.2 3.5-5.1 mmol/L Chloride Level 112 98-107 mmol/L Carbon Dioxide Level 25 21-32 mmol/L Anion Gap 7.0 3-11 mmol/L Blood Urea Nitrogen 12 7-18 mg/dl Creatinine 0.44 0.60-1.20 mg/dl Est Creatinine Clear Calc Drug Dose 95.6 ml/min Estimated GFR () 116.9 Estimated GFR (Non- 100.8 BUN/Creatinine Ratio 28.4 10-20 Random Glucose 89 70-99 mg/dl Calcium Level 7.7 8.5-10.1 mg/dl
--- NOTE | 2017-03-07 14:59 | DIAGNOSTIC IMAGING REPORT ---
MR ANGIOGRAM OF THE BRAIN CLINICAL HISTORY: Change in mental status. COMPARISON STUDY: MRI of the brain performed concurrently on 03/07/2017. TECHNIQUE: 3-D [id number] MR angiography of the intracranial circulation is performed. 3-D tumble views are created and assessed. IV contrast was not administered for this examination. The Examination is significantly degraded by motion artifact. FINDINGS: The left A1 segment is diminutive. The internal carotid arteries are widely patent bilaterally, as are the anterior and middle cerebral arteries. The vertebrobasilar system and posterior cerebral arteries are widely patent. The vertebral arteries are codominant. There is no evidence of aneurysm, high-grade stenosis, or central focal vessel cutoff seen throughout the intracranial circulation. The peripheral branches are not assessed. IMPRESSION: Grossly unremarkable MR angiogram of the brain noting a significantly motion compromised examination. Electronically signed by: Gary Mitchell M.D. 03/07/2017 2:58 PM Dictated Date/Time: 03/07/2017 2:55 PM
[2017-03-07 15:59] VITALS: BP_SYST 159; BP_SYST 182; BP_DIAS 82; BP_DIAS 92; PULSE 79; TEMP 37.1; O2SAT 95
[2017-03-07 19:57] VITALS: BP 165/93; PULSE 75; TEMP 37; O2SAT 94
[2017-03-07] MEDS: ATORVASTATIN 40 MG TAB PO SCH (20:34)
--- NOTE | 2017-03-07 22:03 | Discharge Instructions ---
Discharge Instructions Date of Service March 07, 2017. Admission Reason for Admission: Ams, Cva Discharge Discharge Diagnosis / Problem: Pubic ramus fracture Discharge Goals Goal(s): Decrease discomfort Activity Recommendations Activity Limitations: per Instructions/Follow-up section Weightbearing Status: Left weightbearing (as tolerated), Right weightbearing ( as tolerated) . Instructions / Follow-Up Instructions / Follow-Up Call [facility] at [phone] to schedule a follow up with Dr. Mast in ~3-4 wks for x-rays and re-evaluation. Current Hospital Diet Patient's current hospital diet: AHA Diet (Heart Healthy) Discharge Diet Recommended Diet: AHA Diet (Heart Healthy) Pending Studies Studies pending at discharge: no Laboratory Results Hemoglobin A1c Test 03/05/17 16:50 Range/Units Estimated Average Glucose 111 mg/dl Hemoglobin A1c 5.5 4.5-5.6 % Lipid Panel Test 03/06/17 05:12 Range/Units Triglycerides Level 137 0-150 mg/dl Cholesterol Level 158 0-200 mg/dl HDL Cholesterol 58 mg/dl Cholesterol/HDL Ratio 2.7 LDL Cholesterol, Calculated 73 mg/dl Medical Emergencies . Who to Call and When: Medical Emergencies: If at any time you feel your situation is an emergency, please call 911 immediately. . Non-Emergent Contact Non-Emergency issues call your: Primary Care Provider . "Provider Documentation" section prepared by Juan A Alex. . VTE Core Measure Inpt VTE Proph given/why not?: Unfractionated heparin SQ
[2017-03-07 23:04] VITALS: BP 167/83; PULSE 78; TEMP 37.1; O2SAT 91
[2017-03-08] VITALS (8 sets, daily range): BP systolic 145–185; BP diastolic 81–98; PULSE 53–73; TEMP 36–37.2; O2SAT 91–96
[2017-03-08] MEDS: ACETAMINOPHEN 325 MG TAB PO PRN ×4 (03:24→23:46)
[2017-03-08 06:07] LABS: BASO % 0.3 %; BASO ABS # 0.02 K/uL (0-0.2); COMPLETE YES; EOS % 4.4 %; HEMATOCRIT 32.3 % (37-47); IG% 0.3 %; MEAN CELL VOLUME 91.5 fL (80-100); MEAN CORPUSCULAR HEMOGLOBIN 30.3 pg (25-34); MEAN CORPUSCULAR HGB CONC 33.1 g/dl (32-36); MEAN PLATELET VOLUME 9.1 fL (7.4-10.4); MONO % 9.3 %; NEUT % 62.7 %; PLATELET COUNT 269 K/uL (130-400); RED BLOOD COUNT 3.53 M/uL (4.2-5.4); WHITE BLOOD COUNT 6.53 K/uL (4.8-10.8)
[2017-03-08 06:48] LABS: BUN/CREATININE RATIO 19.3 (10-20); CALCIUM 7.8 mg/dl (8.5-10.1); CREATININE 0.35 mg/dl (0.60-1.20); POTASSIUM 3.4 mmol/L (3.5-5.1)
[2017-03-08] MEDS: PAROXETINE 20 MG TAB PO SCH (07:33)
[2017-03-08] MEDS ORDERED: POTASSIUM CHLORIDE 10 MEQ TABCR PO STA (07:33)
[2017-03-08] MEDS: METOPROLOL TARTRATE 25 MG TAB PO SCH ×2 (07:33→17:49)
[2017-03-08] MEDS: ASPIRIN 325 MG ECTAB PO SCH (07:34)
[2017-03-08] MEDS: LISINOPRIL 20 MG TAB PO SCH (07:35)
[2017-03-08] MEDS: DIVALPROEX SODIUM 500 MG DELAY RELEASE TAB PO SCH (07:35)
[2017-03-08] MEDS ORDERED: METOPROLOL TARTRATE 25 MG TAB PO ONE (11:00)
--- NOTE | 2017-03-08 12:49 | PROGRESS NOTE ---
DATE: 03/08/2017 The patient was seen and examined. Chart, medications and telemetry were reviewed. SUBJECTIVE: The patient today feels "I do not know" and appears clinically improved from the day prior. She continues to have pain and discomfort at injury sites. She notes no chest pain or shortness of breath. She has been able to eat, drink and take in oral medications without difficulty. She notes no fevers, chills or productive cough. Telemetry does demonstrate short runs of atrial tachycardia, not atrial fibrillation or flutter. No sustained arrhythmias. OBJECTIVE: VITAL SIGNS: Heart rate is 66 and blood pressure is 145/86. NECK: Thin. There is no jugular venous distention. LUNGS: Clear to the bases. CARDIOVASCULAR: Regular. There is no S3 gallop. ABDOMEN: Soft and nontender. EXTREMITIES: Without cyanosis or clubbing. There is no peripheral edema. LABORATORY DATA: White cell count 6.5, hemoglobin is 10.7, sodium is 146, potassium is 3.4, chloride is 112, bicarbonate is 26, BUN is 7 and creatinine is 0.35. IMPRESSION: A 71-year-old female admitted with acute mental status changes and obtundation uncertain etiology. Telemetry since admission has demonstrated intermittent atrial tachycardia. MRI yesterday did not demonstrate acute evidence of stroke or thromboembolic phenomena. RECOMMENDATIONS: Continue antihypertensive therapy with lisinopril, add metoprolol 25 mg twice per day for heart rate arrhythmia and blood pressure control. I agree with supplementation of potassium and may require additional supplements. In the interim, we will discontinue IV fluid resuscitation now with adequate fluid resuscitation MTDD
--- NOTE | 2017-03-08 14:15 | Progress Note ---
Internal Med Progress Note Date of Service: March 08, 2017. Provider Documentation: SUBJECTIVE: The patient was seen and examined Complains of pain all over but notably right Hip,Back and Legs Pain has been ongoing for the last 1 and a 1/2months H/O fall before Complains fo left shoulder pain Clinically much better today OBJECTIVE: Vital Signs-as noted below Exam: General-no distress at rest Eyes-Normal ENT-normal Neck-supple Lungs-clear to auscultate bilaterally Heart-Regular,no murmur appreciated Abdomen-Benign,no masses,bowel sound present Extremities-No edema Musculoskeletal: No acute arthritis .Painful movement of the right hip Left shoulder movement is restricted and painful Neuro-AAOx3 Generally weak Lab data as noted below. ASSESSMENT & PLAN: ALTERED MENTAL STATUS-resolved Presents with fall, confusion, blurred vision Differential includes TIA/CVA, metabolic encephalopathy due to medication, infection and/or dehydration Initial CT of the Head-Possible small subacute right periventricular infarct, not shown in repeat and on in MRI MRA :motion artefact ,no significant arterial stenosis Received dose of cefepime in ED and not continued Hold Ativan, [place], Ambien, methocarbamol for AMS Clinically stable RULE OUT CVA Risk factors- HTN, Afib-noted in ER CT head- Possible small subacute right periventricular infarct. Age-related atrophy and chronic small vessel change. No acute intracranial hemorrhage. Check MRI brain, MRA head and neck-has not been possible due to movement ECHO: Normal LV chamber size with mild concentric LVH, sigmoid appearing septum. * Normal LV systolic function, EF 55-60%. * No segmental left ventricular wall motion abnormalities are noted. * Aortic valve sclerosis mild, without significant aortic valvular stenosis. * Mild tricuspid regurgitation. * Small, loculated posterior pericardial effusion. NO ASD and PFO was not assessed Placed on aspirin and statin Appreciate Neurology input MRI: There is no acute intracranial abnormality noting a motion degraded examination. MRA-motion degraded examination.No stenosis Clinically no focal neuro deficit Subacute/Acute Pelvic Fracture on X-ray Ambulatory dysfunction with frequent falls Recent Right HIP replacement Ortho consulted -appreciate Input and recommendation PT and brace -no surgery Minimally high CPK From fall will monitor Tachyarrhythmia-secondary to MAT AFIB WITH RVR- ruled out Potassium low- replacing; check mag- ok; TSH WNL Lopressor 2.5 mg PRN HR >110 CHADS2 score- 1 for HTN plus 1-2 if she is truly having TIA or CVA Started on IH Heparin,stopped this AM following Cardiology evaluation Only Aspirin BB dose is increased S/P FALL Unclear details, unwitnessed Check x-ray bilateral hip to r/o fx due to pain with ROM Will need rehab MILD RHABDOMYOLYSIS Secondary to fall CK ~4000 Continue IVF's Weight Loss Underweight/cachectic, mild/moderate protein-calorie malnutrition Nutrition service consulted MILD TROPONIN ELEVATION Troponin is 0.1 No angina; possibly due to AF with RVR EKG- AF with RVR, no STTWA Trend serial cardiac enzymes-No ACS Small dose of BB added HYPOKALEMIA Replace and monitor Check mag HISTORY OF MIGRAINE Depakote level OK- continue Depakote DEPRESSION Continue Paxil GERD Continue PPI DVT PROPHYLAXIS Heparin SQ CODE STATUS Full code per my discussion with son Juvencio who is POA via phone call. He wishes to receive updates with any changes at [phone]. DISPOSITION Follows w/ Dr. Bojorquez for primary care Lives alone which is unsafe for her; social worker consulted for discharge planning Discussed with the Son and Grandson Vital Signs: Date Time Temp Pulse Resp B/P Pulse Ox O2 Delivery O2 Flow Rate FiO2 03/08/17 12:00 Room Air 03/08/17 11:51 37.1 53 20 174/81 94 Room Air 03/08/17 08:00 Room Air 03/08/17 07:49 36.0 66 20 145/86 95 Room Air 03/08/17 04:00 Room Air 03/08/17 03:16 36.7 67 19 163/88 95 Room Air 03/08/17 00:00 Room Air 03/07/17 23:04 37.1 78 19 167/83 91 Room Air 03/07/17 20:00 Room Air 03/07/17 19:57 37.0 75 18 165/93 94 Room Air 03/07/17 16:10 Room Air 03/07/17 15:59 37.1 79 20 159/92 95 Room Air 182/82 Lab Results: Results Past 24 Hours Test 03/08/17 05:34 Range/Units White Blood Count 6.53 4.8-10.8 K/uL Red Blood Count 3.53 4.2-5.4 M/uL Hemoglobin 10.7 12.0-16.0 g/dL Hematocrit 32.3 37-47 % Mean Corpuscular Volume 91.5 80-100 fL Mean Corpuscular Hemoglobin 30.3 25-34 pg Mean Corpuscular Hemoglobin Concent 33.1 32-36 g/dl Platelet Count 269 130-400 K/uL Mean Platelet Volume 9.1 7.4-10.4 fL Neutrophils (%) (Auto) 62.7 % Lymphocytes (%) (Auto) 23.0 % Monocytes (%) (Auto) 9.3 % Eosinophils (%) (Auto) 4.4 % Basophils (%) (Auto) 0.3 % Neutrophils # (Auto) 4.09 1.4-6.5 K/uL Lymphocytes # (Auto) 1.50 1.2-3.4 K/uL Monocytes # (Auto) 0.61 0.11-0.59 K/uL Eosinophils # (Auto) 0.29 0-0.5 K/uL Basophils # (Auto) 0.02 0-0.2 K/uL RDW Standard Deviation 60.4 36.4-46.3 fL RDW Coefficient of Variation 18.1 11.5-14.5 % Immature Granulocyte % (Auto) 0.3 % Immature Granulocyte # (Auto) 0.02 0.00-0.02 K/uL Activated Partial Thromboplast Time 25.2 21.0-31.0 SECONDS Partial Thromboplastin Ratio 1.0 Sodium Level 146 136-145 mmol/L Potassium Level 3.4 3.5-5.1 mmol/L Chloride Level 112 98-107 mmol/L Carbon Dioxide Level 26 21-32 mmol/L Anion Gap 8.0 3-11 mmol/L Blood Urea Nitrogen 7 7-18 mg/dl Creatinine 0.35 0.60-1.20 mg/dl Est Creatinine Clear Calc Drug Dose 124.8 ml/min Estimated GFR () 126.0 Estimated GFR (Non- 108.7 BUN/Creatinine Ratio 19.3 10-20 Random Glucose 89 70-99 mg/dl Calcium Level 7.8 8.5-10.1 mg/dl
[2017-03-08] MEDS: ATORVASTATIN 40 MG TAB PO SCH (20:31)
[2017-03-08] MEDS ORDERED: CLONIDINE HCL 0.1 MG TAB PO PRN (22:30)
[2017-03-08] MEDS: ZOLPIDEM TARTRATE 5 MG TAB PO PRN (22:50)
[2017-03-08] MEDS: HYDROCODONE/ACETAMOPHEN 5/325MG TAB PO PRN (22:51)
[2017-03-09 07:09] VITALS: BP 164/76; PULSE 60; TEMP 36.5; O2SAT 96
[2017-03-09 07:09] LABS: PARTIAL THROMBOPLASTIN RATIO 0.9
[2017-03-09] MEDS: ASPIRIN 325 MG ECTAB PO SCH (07:42)
[2017-03-09] MEDS: DIVALPROEX SODIUM 500 MG DELAY RELEASE TAB PO SCH (07:42)
[2017-03-09] MEDS: LISINOPRIL 20 MG TAB PO SCH (07:43)
[2017-03-09] MEDS: METOPROLOL TARTRATE 25 MG TAB PO SCH ×2 (07:43→17:05)
[2017-03-09] MEDS: PAROXETINE 20 MG TAB PO SCH (07:43)
[2017-03-09] MEDS: HYDROCODONE/ACETAMOPHEN 5/325MG TAB PO PRN ×3 (07:47→23:21)
[2017-03-09] MEDS ORDERED: PNEUMOCOCCAL ADMINISTRATION CHARGE ONE (09:00)
[2017-03-09] MEDS ORDERED: PNEUMOCOCCAL POLYSACCHARIDES 25 MCG/0.5 ML VIAL/SYR IM. ONE (09:00)
[2017-03-09 10:20] VITALS: BP 154/75; PULSE 77; O2SAT 95
--- NOTE | 2017-03-09 12:48 | Progress Note ---
Internal Med Progress Note Date of Service: March 09, 2017. Provider Documentation: SUBJECTIVE: The patient was seen and examined Complains of pain all over but notably right Hip,Back and Legs Pain has been ongoing for the last 1 and a 1/2months H/O fall before Complains fo left shoulder pain-better today Clinically much better today OOB in a chair OBJECTIVE: Vital Signs-as noted below Exam: General-no distress at rest Eyes-Normal ENT-normal Neck-supple Lungs-clear to auscultate bilaterally Heart-Regular,no murmur appreciated Abdomen-Benign,no masses,bowel sound present Extremities-No edema Musculoskeletal: No acute arthritis .Painful movement of the right hip Left shoulder movement is restricted and painful Neuro-AAOx3 Generally weak Lab data as noted below. ASSESSMENT & PLAN: ALTERED MENTAL STATUS-resolved Presents with fall, confusion, blurred vision Differential includes TIA/CVA, metabolic encephalopathy due to medication, infection and/or dehydration Initial CT of the Head-Possible small subacute right periventricular infarct, not shown in repeat and on in MRI MRA :motion artefact ,no significant arterial stenosis Received dose of cefepime in ED and not continued Hold Ativan, [place], Ambien, methocarbamol for AMS Clinically stable RULE OUT CVA Risk factors- HTN, Afib-noted in ER CT head- Possible small subacute right periventricular infarct. Age-related atrophy and chronic small vessel change. No acute intracranial hemorrhage. Check MRI brain, MRA head and neck-has not been possible due to movement ECHO: Normal LV chamber size with mild concentric LVH, sigmoid appearing septum. * Normal LV systolic function, EF 55-60%. * No segmental left ventricular wall motion abnormalities are noted. * Aortic valve sclerosis mild, without significant aortic valvular stenosis. * Mild tricuspid regurgitation. * Small, loculated posterior pericardial effusion. NO ASD and PFO was not assessed Placed on aspirin and statin Appreciate Neurology input MRI: There is no acute intracranial abnormality noting a motion degraded examination. MRA-motion degraded examination.No stenosis Clinically no focal neuro deficit NO stroke noted Will get PT/OT and likely discharge to rehab when accepted Subacute/Acute Pelvic Fracture on X-ray Ambulatory dysfunction with frequent falls Recent Right HIP replacement Ortho consulted -appreciate Input and recommendation PT and brace -no surgery Minimally high CPK From fall will monitor Tachyarrhythmia-secondary to MAT AFIB WITH RVR- ruled out Potassium low- replacing; check mag- ok; TSH WNL Lopressor 2.5 mg PRN HR >110 CHADS2 score- 1 for HTN plus 1-2 if she is truly having TIA or CVA Started on IH Heparin,stopped this AM following Cardiology evaluation Only Aspirin BB dose is increased No more arrhythmia S/P FALL Unclear details, unwitnessed Check x-ray bilateral hip to r/o fx due to pain with ROM Will need rehab MILD RHABDOMYOLYSIS Secondary to fall CK ~4000 Continue IVF's Weight Loss Underweight/cachectic, mild/moderate protein-calorie malnutrition Nutrition service consulted MILD TROPONIN ELEVATION Troponin is 0.1 No angina; possibly due to AF with RVR EKG- AF with RVR, no STTWA Trend serial cardiac enzymes-No ACS Small dose of BB added HYPOKALEMIA Replace and monitor Check mag Normalized HISTORY OF MIGRAINE Depakote level OK- continue Depakote DEPRESSION Continue Paxil GERD Continue PPI DVT PROPHYLAXIS Heparin SQ CODE STATUS Full code per my discussion with son Juvencio who is POA via phone call. He wishes to receive updates with any changes at [phone]. DISPOSITION Follows w/ Dr. Bojorquez for primary care Lives alone which is unsafe for her; social services technician consulted for discharge planning Discussed with the Son and Grandson PT/OT -likely discharged tomorrow Vital Signs: Date Time Temp Pulse Resp B/P Pulse Ox O2 Delivery O2 Flow Rate FiO2 03/09/17 10:20 77 95 03/09/17 08:00 Room Air 03/09/17 07:09 36.5 60 18 164/76 96 Room Air 03/09/17 00:00 Room Air 03/08/17 23:42 145/83 03/08/17 23:17 36.8 67 20 174/98 96 Room Air 03/08/17 22:14 60 185/89 03/08/17 16:00 Room Air 03/08/17 16:00 37.1 73 18 167/83 95 03/08/17 15:25 37.2 68 20 176/88 91 Room Air Lab Results: Results Past 24 Hours Test 03/09/17 06:30 Range/Units Activated Partial Thromboplast Time 24.2 21.0-31.0 SECONDS Partial Thromboplastin Ratio 0.9
[2017-03-09 14:57] VITALS: BP 162/90; PULSE 59; TEMP 36.9; O2SAT 94
[2017-03-09 16:00] VITALS: O2SAT 94
[2017-03-09 17:07] VITALS: PULSE 62
[2017-03-09] MEDS: ATORVASTATIN 40 MG TAB PO SCH (19:56)
[2017-03-09 23:07] VITALS: BP 165/79; PULSE 59; TEMP 36.8; O2SAT 93
[2017-03-09] MEDS: ZOLPIDEM TARTRATE 5 MG TAB PO PRN (23:20)
[2017-03-10] MEDS: ACETAMINOPHEN 325 MG TAB PO PRN (01:22)
[2017-03-10 07:02] LABS: HEMATOCRIT 37.2 % (37-47); MEAN CELL VOLUME 90.5 fL (80-100); MEAN CORPUSCULAR HEMOGLOBIN 28.5 pg (25-34); MEAN CORPUSCULAR HGB CONC 31.5 g/dl (32-36); PLATELET COUNT 291 K/uL (130-400); RED BLOOD COUNT 4.11 M/uL (4.2-5.4); WHITE BLOOD COUNT 5.54 K/uL (4.8-10.8)
[2017-03-10 07:36] VITALS: BP 153/72; PULSE 66; TEMP 36.3; O2SAT 92
[2017-03-10] MEDS: DIVALPROEX SODIUM 500 MG DELAY RELEASE TAB PO SCH (08:27)
[2017-03-10] MEDS: PAROXETINE 20 MG TAB PO SCH (08:28)
[2017-03-10] MEDS: ASPIRIN 325 MG ECTAB PO SCH (08:28)
[2017-03-10] MEDS: LISINOPRIL 20 MG TAB PO SCH (08:28)
[2017-03-10] MEDS: METOPROLOL TARTRATE 25 MG TAB PO SCH ×2 (08:28→16:09)
[2017-03-10] MEDS: HYDROCODONE/ACETAMOPHEN 5/325MG TAB PO PRN ×3 (08:30→23:49)
--- NOTE | 2017-03-10 13:20 | Progress Note ---
Internal Med Progress Note Date of Service: March 10, 2017. Provider Documentation: SUBJECTIVE: The patient was seen and examined Complains of pain all over but notably right Hip,Back and Legs Pain has been ongoing for the last 1 and a 1/2months H/O fall before Denies any complaints Ready to be discharged OBJECTIVE: Vital Signs-as noted below Exam: General-no distress at rest Eyes-Normal ENT-normal Neck-supple Lungs-clear to auscultate bilaterally Heart-Regular,no murmur appreciated Abdomen-Benign,no masses,bowel sound present Extremities-No edema Musculoskeletal: No acute arthritis .Painful movement of the right hip Left shoulder movement is restricted and painful Neuro-AAOx3 Generally weak Lab data as noted below. ASSESSMENT & PLAN: ALTERED MENTAL STATUS-resolved Presents with fall, confusion, blurred vision Differential includes TIA/CVA, metabolic encephalopathy due to medication, infection and/or dehydration Initial CT of the Head-Possible small subacute right periventricular infarct, not shown in repeat and on in MRI MRA :motion artefact ,no significant arterial stenosis Received dose of cefepime in ED and not continued Hold Ativan, [place], Ambien, methocarbamol for AMS Will not prescribe those medicine on discharge Remains stable with any mot-re confusion RULE OUT CVA Risk factors- HTN, Afib-noted in ER CT head- Possible small subacute right periventricular infarct. Age-related atrophy and chronic small vessel change. No acute intracranial hemorrhage. Check MRI brain, MRA head and neck-has not been possible due to movement ECHO: Normal LV chamber size with mild concentric LVH, sigmoid appearing septum. * Normal LV systolic function, EF 55-60%. * No segmental left ventricular wall motion abnormalities are noted. * Aortic valve sclerosis mild, without significant aortic valvular stenosis. * Mild tricuspid regurgitation. * Small, loculated posterior pericardial effusion. NO ASD and PFO was not assessed Placed on aspirin and statin Appreciate Neurology input MRI: There is no acute intracranial abnormality noting a motion degraded examination. MRA-motion degraded examination.No stenosis Clinically no focal neuro deficit NO stroke noted Will get PT/OT and likely discharge to rehab when accepted Getting PT Subacute/Acute Pelvic Fracture on X-ray Ambulatory dysfunction with frequent falls Recent Right HIP replacement Ortho consulted -appreciate Input and recommendation PT and brace -no surgery Minimally high CPK From fall Tachyarrhythmia-secondary to MAT AFIB WITH RVR- ruled out Potassium low- replacing; check mag- ok; TSH WNL Lopressor 2.5 mg PRN HR >110 CHADS2 score- 1 for HTN plus 1-2 if she is truly having TIA or CVA Started on IH Heparin,stopped this AM following Cardiology evaluation Only Aspirin BB dose is increased No more arrhythmia Remains stable without any symptoms S/P FALL Unclear details, unwitnessed Check x-ray bilateral hip to r/o fx due to pain with ROM Will need rehab MILD RHABDOMYOLYSIS Secondary to fall CK ~4000 Continue IVF's Weight Loss Underweight/cachectic, mild/moderate protein-calorie malnutrition Nutrition service consulted MILD TROPONIN ELEVATION Troponin is 0.1 No angina; possibly due to AF with RVR EKG- AF with RVR, no STTWA Trend serial cardiac enzymes-No ACS Small dose of BB added HYPOKALEMIA Replace and monitor Check mag Normalized HISTORY OF MIGRAINE Depakote level OK- continue Depakote DEPRESSION Continue Paxil GERD Continue PPI DVT PROPHYLAXIS Heparin SQ CODE STATUS Full code per my discussion with son Juvencio who is POA via phone call. He wishes to receive updates with any changes at [phone]. DISPOSITION Follows w/ Dr. Bojorquez for primary care Lives alone which is unsafe for her; social media marketing specialist consulted for discharge planning Discussed with the Son and Grandson PT/OT Likely discharge today Vital Signs: Date Time Temp Pulse Resp B/P Pulse Ox O2 Delivery O2 Flow Rate FiO2 03/10/17 08:00 Room Air 03/10/17 07:36 36.3 66 16 153/72 92 Room Air 03/10/17 00:00 Room Air 03/09/17 23:07 36.8 59 18 165/79 93 Room Air 03/09/17 17:07 62 03/09/17 16:00 94 Room Air 03/09/17 14:57 36.9 59 16 162/90 94 Room Air Lab Results: Results Past 24 Hours Test 03/10/17 06:42 Range/Units White Blood Count 5.54 4.8-10.8 K/uL Red Blood Count 4.11 4.2-5.4 M/uL Hemoglobin 11.7 12.0-16.0 g/dL Hematocrit 37.2 37-47 % Mean Corpuscular Volume 90.5 80-100 fL Mean Corpuscular Hemoglobin 28.5 25-34 pg Mean Corpuscular Hemoglobin Concent 31.5 32-36 g/dl RDW Standard Deviation 56.8 36.4-46.3 fL RDW Coefficient of Variation 17.1 11.5-14.5 % Platelet Count 291 130-400 K/uL Mean Platelet Volume 9.0 7.4-10.4 fL Activated Partial Thromboplast Time 25.0 21.0-31.0 SECONDS Partial Thromboplastin Ratio 1.0
[2017-03-10 15:26] VITALS: BP 168/95; PULSE 60; TEMP 36.4; O2SAT 97
[2017-03-10 16:00] VITALS: O2SAT 95
[2017-03-10] MEDS: ATORVASTATIN 40 MG TAB PO SCH (20:00)
[2017-03-10] MEDS ORDERED: ZOLPIDEM TARTRATE 5 MG TAB PO ONE (23:42)
[2017-03-11 00:13] VITALS: BP 103/70; PULSE 64; TEMP 36.4; O2SAT 95
[2017-03-11 07:32] VITALS: BP 175/82; PULSE 58; TEMP 36.4; O2SAT 96
[2017-03-11 08:20] LABS: PARTIAL THROMBOPLASTIN RATIO 0.9
[2017-03-11] MEDS: LISINOPRIL 20 MG TAB PO SCH (08:25)
[2017-03-11] MEDS: METOPROLOL TARTRATE 25 MG TAB PO SCH ×2 (08:25→15:50)
[2017-03-11] MEDS: ASPIRIN 325 MG ECTAB PO SCH (08:26)
[2017-03-11] MEDS: DIVALPROEX SODIUM 500 MG DELAY RELEASE TAB PO SCH (08:26)
[2017-03-11] MEDS: PAROXETINE 20 MG TAB PO SCH (08:27)
[2017-03-11] MEDS: HYDROCODONE/ACETAMOPHEN 5/325MG TAB PO PRN (08:31)
[2017-03-11 08:32] VITALS: BP 185/76; PULSE 63
[2017-03-11] MEDS ORDERED: POTASSIUM CHLORIDE 10 MEQ TABCR PO STA ×2 (11:06→13:42)
--- NOTE | 2017-03-11 12:47 | Progress Note ---
Internal Med Progress Note Date of Service: March 11, 2017. Provider Documentation: SUBJECTIVE: The patient was seen and examined Complains of pain all over but notably right Hip,Back and Legs Pain has been ongoing for the last 1 and a 1/2months H/O fall before Has some pain in Pelvis otherwise no complaints OBJECTIVE: Vital Signs-as noted below Exam: General-no distress at rest Looks brighter Eyes-Normal ENT-normal Neck-supple Lungs-clear to auscultate bilaterally Heart-Regular,no murmur appreciated Abdomen-Benign,no masses,bowel sound present Extremities-No edema Musculoskeletal: No acute arthritis .Painful movement of the right hip Left shoulder movement is restricted and painful Neuro-AAOx3 Generally weak Lab data as noted below. ASSESSMENT & PLAN: ALTERED MENTAL STATUS-resolved Presents with fall, confusion, blurred vision Differential includes TIA/CVA, metabolic encephalopathy due to medication, infection and/or dehydration Initial CT of the Head-Possible small subacute right periventricular infarct, not shown in repeat and on in MRI MRA :motion artefact ,no significant arterial stenosis Received dose of cefepime in ED and not continued Hold Ativan, [place], Ambien, methocarbamol for AMS Will not prescribe those medicine on discharge Remains stable with any more confusion RULE OUT CVA Risk factors- HTN, Afib-noted in ER CT head- Possible small subacute right periventricular infarct. Age-related atrophy and chronic small vessel change. No acute intracranial hemorrhage. Check MRI brain, MRA head and neck-has not been possible due to movement ECHO: Normal LV chamber size with mild concentric LVH, sigmoid appearing septum. * Normal LV systolic function, EF 55-60%. * No segmental left ventricular wall motion abnormalities are noted. * Aortic valve sclerosis mild, without significant aortic valvular stenosis. * Mild tricuspid regurgitation. * Small, loculated posterior pericardial effusion. NO ASD and PFO was not assessed Placed on aspirin and statin Appreciate Neurology input MRI: There is no acute intracranial abnormality noting a motion degraded examination. MRA-motion degraded examination.No stenosis Clinically no focal neuro deficit NO stroke noted Will get PT/OT and likely discharge to rehab when accepted Getting PT-will be transferred to [facility] today Subacute/Acute Pelvic Fracture on X-ray Ambulatory dysfunction with frequent falls Recent Right HIP replacement Ortho consulted -appreciate Input and recommendation PT and brace -no surgery Pain is controlled Minimally high CPK From fall Tachyarrhythmia-secondary to MAT AFIB WITH RVR- ruled out Potassium low- replacing; check mag- ok; TSH WNL Lopressor 2.5 mg PRN HR >110 CHADS2 score- 1 for HTN plus 1-2 if she is truly having TIA or CVA Started on IH Heparin,stopped this AM following Cardiology evaluation Only Aspirin BB dose is increased No more arrhythmia Remains stable without any symptoms S/P FALL Unclear details, unwitnessed Check x-ray bilateral hip to r/o fx due to pain with ROM Will need rehab Take precaution while ambulating MILD RHABDOMYOLYSIS Secondary to fall CK ~4000 Continue IVF's Weight Loss Underweight/cachectic, mild/moderate protein-calorie malnutrition Nutrition service consulted MILD TROPONIN ELEVATION Troponin is 0.1 No angina; possibly due to AF with RVR EKG- AF with RVR, no STTWA Trend serial cardiac enzymes-No ACS Small dose of BB added HYPOKALEMIA Replace and monitor Check mag Normalized HISTORY OF MIGRAINE Depakote level OK- continue Depakote DEPRESSION Continue Paxil GERD Continue PPI DVT PROPHYLAXIS Heparin SQ CODE STATUS Full code per my discussion with son Juvencio who is POA via phone call. He wishes to receive updates with any changes at [phone]. DISPOSITION Follows w/ Dr. Bojorquez for primary care Lives alone which is unsafe for her; vp digital marketing social media and crm consulted for discharge planning Discussed with the Son and Grandson PT/OT Likely discharge to Rehab today Vital Signs: Date Time Temp Pulse Resp B/P Pulse Ox O2 Delivery O2 Flow Rate FiO2 03/11/17 08:32 63 185/76 03/11/17 07:32 36.4 58 20 175/82 96 Room Air 03/11/17 00:13 36.4 64 16 103/70 95 Room Air 03/11/17 00:00 Room Air 03/10/17 16:00 95 Room Air 03/10/17 15:26 36.4 60 16 168/95 97 Nasal Cannula Lab Results: Results Past 24 Hours Test 03/11/17 07:00 Range/Units Activated Partial Thromboplast Time 23.1 21.0-31.0 SECONDS Partial Thromboplastin Ratio 0.9
[2017-03-11 13:24] LABS: BUN/CREATININE RATIO 10.9 (10-20); CREATININE 0.47 mg/dl (0.60-1.20); MAGNESIUM 1.9 mg/dl (1.8-2.4); POTASSIUM 3.2 mmol/L (3.5-5.1)
[2017-03-11 13:25] VITALS: BP_SYST 162; BP_SYST 179; BP_DIAS 75; BP_DIAS 80; PULSE 60
[2017-03-11 13:30] LABS: CALCIUM 6.5 mg/dl (8.5-10.1)
[2017-03-11] MEDS ORDERED: HYDR-5688 PO (13:49)
[2017-03-11] MEDS ORDERED: LPT40 PO (13:49)
[2017-03-11] MEDS ORDERED: LPR25 PO (13:49)
[2017-03-11] MEDS ORDERED: ASPEC81 PO (13:49)
[2017-03-11] MEDS ORDERED: MCRK20 PO (13:50)
[2017-03-11 15:23] VITALS: BP 164/77; PULSE 63; TEMP 36.7; O2SAT 97
--- NOTE | 2017-03-11 18:22 | Discharge Summary ---
Discharge Summary Date of Service March 11, 2017. Discharge Summary Admission Date: March 05, 2017 at 18:23 Discharge Date: March 11, 2017 Discharge Disposition: [facility] facility Principal Diagnosis: Pubic ramus fracture ,Falls Secondary Diagnoses/Problems: Please see H&P and Hospital Progress note Consultations: Ortho and Cardiology Medication Reconciliation New Medications: Aspirin (Aspirin EC Low Dose) 81 Mg Ectab 81 MG PO DAILY, #30 Potassium Chloride (Klor-Con M20) 20 Meq Tabcr 20 MEQ PO DAILY, #30 Atorvastatin (Atorvastatin Calcium) 40 Mg Tab 40 MG PO QPM for 30 Days, #30 TAB Metoprolol Tartrate (Lopressor) 25 Mg Tab 25 MG PO BID17 for 30 Days, #60 TAB Continued Medications: Divalproex Sodium (Depakote) 500 Mg Tab 500 MG PO DAILY for 30 Days, #30 TAB 1 Refill Hydrocodone/Acetaminophen 5MG/325MG ([place] 5MG/325MG) Tab 1 TABLET PO Q6 PRN for Pain for 10 Days, #30 TAB (This prescription has been renewed) PRN PAIN Lisinopril (Prinivil) 20 Mg Tab 20 MG PO DAILY, TAB Lorazepam (Ativan) 1 Mg Tab 1 MG PO HS PRN for Sleep, TAB Paroxetine HCl (Paroxetine) 40 Mg Tab 1.5 TAB PO DAILY Sumatriptan Succinate (Imitrex) 50 Mg Tab 50 MG PO PRN PRN for Headache, TAB Zolpidem Tartrate (Zolpidem Tartrate) 5 Mg Tab 5 MG PO HS PRN for Sleep Discontinued Medications: Methocarbamol (Robaxin) 500 Mg Tab 1000 MG PO QID, TAB Admission Information HPI (per Admitting provider): This is a 71 y/o female with PMH of hypertension, migraine, who presents to the ED with AMS. Pt is a poor historian. She she fell at home but does not recall the details. The fall was unwitnessed. Per ER provider the patient was found today by the police in her home. Patient was found naked in the position on the floor of her kitchen. EMS was called and the patient was brought to the ED by ambulance. Patient states she falls and hits her head "all the time". Uses a walker at home. She fell and broke her shoulder in November 2016 and fractured her hip in Jun 2016. Lives alone. She was living with her son Juvencio after hospitalization in [place] for falls in January, but now is living alone. Pt is accompanied by her other son who has not seen her for months. He states at baseline she is alert and oriented. Patient reports recent productive cough with yellow sputum and rhinorrhea. She is feeling generally weak in the arms and legs. Also reports "foggy vision" today. States she occasionally has epigastric pain which resolves with Zantac. No pain currently. She denies fever , chills, MARQUIS, dizziness, focal numbness or weakness, facial droop, slurred speech, chest pain, SOB, N/V/D, dysuria, frequency, wounds. Denies hx of abnormal bleeding. No prior dx of AF or CAD. No hx of CVA or TIA. I spoke to patient's son Juvencio on the phone who is her POA and sees her regularly. Son Juvencio states she was normal on the phone 2 days ago. He states her current confusion is worse than baseline. Patient was on PRN oxygen in the past but not using it lately. Son states she manages her own meds but sometimes forgets she already took them. Past Medical/Surgical History Medical Problems: (1) Anxiety Status: Chronic (2) Depression Status: Chronic (3) GERD (gastroesophageal reflux disease) Status: Chronic (4) Hypertension Status: Chronic (5) Kyphosis of thoracic region Status: Chronic (6) Migraine Status: Chronic (7) SCC (squamous cell carcinoma) Permanent Comment: right thigh 2001 Status: Chronic Surgical Problems: (1) History of hysterectomy Status: Chronic (2) History of shoulder surgery Status: Resolved (3) S/P total hip arthroplasty Status: Chronic Family History Not obtainable due to AMS. Social History Smoking Status: Current Every Day Smoker (1 ppd ) Alcohol Use: socially Drug Use: none Marital Status: Housing status: lives alone Immunizations History of Influenza Vaccine: No Tetanus Immunization Date: February 25, 1999 History of Pneumococcal: No History of Hepatitis B Vaccine: No Multi-Drug Resistant Organisms History of MDRO: No Allergies Coded Allergies: Iodinated Diagnostic Agents (Verified Allergy, Severe, ANAPHYLAXIS -- "Contrast Media", 03/05/17) Iodine (Verified Allergy, Unknown, 03/05/17) Home Medications Scheduled Divalproex Sodium (Depakote), 500 MG PO DAILY Lisinopril (Prinivil), 20 MG PO DAILY Methocarbamol (Robaxin), 1,000 MG PO QID Paroxetine HCl (Paroxetine), 1.5 TAB PO DAILY Scheduled PRN Hydrocodone/Acetaminophen 5MG/325MG ([place] 5MG/325MG), 1 TABLET PO Q6 PRN for Pain Lorazepam (Ativan), 1 MG PO HS PRN for Sleep Sumatriptan Succinate (Imitrex), 50 MG PO PRN PRN for Headache Zolpidem Tartrate (Zolpidem Tartrate), 5 MG PO HS PRN for Sleep Review of Systems Ten systems reviewed and negative except as noted in HPI. Physical Ex - H&P Physical Exam Vital Signs Date Time Temp Pulse Resp B/P Pulse Ox O2 Delivery O2 Flow Rate FiO2 03/05/17 17:54 100 18 165/97 97 Nasal Cannula 2.0 03/05/17 17:15 100 20 158/98 96 Room Air 03/05/17 16:53 104 03/05/17 16:12 36.8 103 18 160/85 94 Room Air General Appearance: WD/WN, no apparent distress, + pertinent finding (alert confused 71 year old female, son and daughter in law at bedside) Head: normocephalic, atraumatic Eyes: normal inspection, PERRL, EOMI ENT: normal ENT inspection, hearing grossly normal, pharynx normal Neck: supple, no JVD, trachea midline Respiratory/Chest: lungs clear, normal breath sounds, no respiratory distress, no accessory muscle use Cardiovascular: no murmur, + irregularly irregular Abdomen/GI: normal bowel sounds, non tender, soft Back: + pertinent finding (kyphosis) Extremities/Musculoskelatal: no calf tenderness, no pedal edema Neurologic/Psych: 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 unable to recall recent events. tangential speech at times. vendor specialist strength 5/5 bilaterally. unable to lift bilateral legs off the bed. ankle flexion/ extension 5/5 bilaterally) Skin: normal color, warm/dry, + pertinent finding (ecchymosis scattered on extremities) Diagnostics - H&P Diagnostics Laboratory Results Results Past 24 Hours Test 03/05/17 16:15 03/05/17 16:40 03/05/17 16:50 03/05/17 19:28 Range/Units Bedside Glucose 130 70-90 mg/dl Urine Color DK YELLOW Urine Appearance CLEAR CLEAR Urine pH 5.5 4.5-7.5 Urine Specific [place] 1.018 1.000-1.030 Urine Protein TRACE NEG Urine Glucose (UA) NEG NEG Urine Ketones 1+ NEG Urine Occult Blood TRACE NEG Urine Nitrite NEG NEG Urine Bilirubin NEG NEG Urine Urobilinogen NEG NEG Urine Leukocyte Esterase NEG NEG Urine WBC (Auto) 1-5 0-5 /hpf Urine RBC (Auto) 0-4 0-4 /hpf Urine Hyaline Casts (Auto) 1-5 0-5 /lpf Urine Epithelial Cells (Auto) 5-10 0-5 /lpf Urine Bacteria (Auto) NEG NEG White Blood Count 14.65 4.8-10.8 K/uL Red Blood Count 4.40 4.2-5.4 M/uL Hemoglobin 13.0 12.0-16.0 g/dL Hematocrit 39.3 37-47 % Mean Corpuscular Volume 89.3 80-100 fL Mean Corpuscular Hemoglobin 29.5 25-34 pg Mean Corpuscular Hemoglobin Concent 33.1 32-36 g/dl Platelet Count 379 130-400 K/uL Mean Platelet Volume 9.5 7.4-10.4 fL Neutrophils (%) (Auto) 86.6 % Lymphocytes (%) (Auto) 7.2 % Monocytes (%) (Auto) 5.7 % Eosinophils (%) (Auto) 0.1 % Basophils (%) (Auto) 0.1 % Neutrophils # (Auto) 12.70 1.4-6.5 K/uL Lymphocytes # (Auto) 1.06 1.2-3.4 K/uL Monocytes # (Auto) 0.83 0.11-0.59 K/uL Eosinophils # (Auto) 0.01 0-0.5 K/uL Basophils # (Auto) 0.01 0-0.2 K/uL RDW Standard Deviation 60.5 36.4-46.3 fL RDW Coefficient of Variation 18.4 11.5-14.5 % Immature Granulocyte % (Auto) 0.3 % Immature Granulocyte # (Auto) 0.04 0.00-0.02 K/uL Prothrombin Time 12.2 9.0-12.0 SECONDS Prothromb Time International Ratio 1.1 0.9-1.1 Activated Partial Thromboplast Time 23.8 21.0-31.0 SECONDS Partial Thromboplastin Ratio 0.9 Venous Blood pH 7.40 7.36-7.41 Venous Blood Partial Pressure CO2 41 38.0-50.0 mmHg Venous Blood Partial Pressure O2 35 mmHg Venous Blood HCO3 25 meq/L Venous Blood Oxygen Saturation 64.6 % Venous Blood Base Excess -0.1 mmol/L Sodium Level 143 136-145 mmol/L Potassium Level 3.0 3.5-5.1 mmol/L Chloride Level 105 98-107 mmol/L Carbon Dioxide Level 26 21-32 mmol/L Anion Gap 12.0 3-11 mmol/L Blood Urea Nitrogen 44 7-18 mg/dl Creatinine 0.81 0.60-1.20 mg/dl Est Creatinine Clear Calc Drug Dose 46.9 ml/min Estimated GFR () 84.1 Estimated GFR (Non- 72.6 BUN/Creatinine Ratio 53.7 10-20 Random Glucose 109 70-99 mg/dl Calcium Level 8.8 8.5-10.1 mg/dl Total Bilirubin 0.8 0.2-1 mg/dl Direct Bilirubin 0.3 0-0.2 mg/dl Aspartate Amino Transf (AST/SGOT) 187 15-37 U/L Alanine Aminotransferase (ALT/SGPT) 72 12-78 U/L Alkaline Phosphatase 267 45-117 U/L Total Creatine Kinase 4049 26-192 U/L Troponin I 0.110 0-0.045 ng/ml Total Protein 7.1 6.4-8.2 gm/dl Albumin 3.2 3.4-5.0 gm/dl Thyroid Stimulating Hormone (TSH) 1.100 0.300-4.500 uIu/ml Valproic Acid (Depakene) Level < 3 50-100 mcg/ml Lactic Acid Level 2.0 0.4-2.0 mmol/L Test 03/05/17 19:55 Range/Units Diagnostic Radiology HEAD CT NONCONTRAST CT DOSE: HISTORY: Mental status change ams TECHNIQUE: Multiaxial CT images of the head were performed without the use of intravenous contrast. Comparison: None. Findings: The paranasal sinuses and mastoid air cells are clear. The calvarium and skull base are intact. The ventricles and sulci are within normal limits. There is no mass, hematoma, midline shift, or acute infarct. Possible small right periventricular infarct best seen transaxial image 20 Impression: Possible small subacute right periventricular infarct. Age-related atrophy and chronic small vessel change. No acute intracranial hemorrhage. CHEST ONE VIEW PORTABLE CLINICAL HISTORY: AMS dyspnea COMPARISON STUDY: 06/05/2006 FINDINGS: Male Limited study as the head overlies the upper aspect of left hemithorax. Right lung is clear. Left base is clear. Fixed hiatal hernia. No evidence for cardiac enlargement. Left shoulder arthroplasty IMPRESSION: Nonvisualization left upper lung has the head overlies this region . Fixed hiatal hernia. The right lung and left base are clear. CERVICAL SPINE CT CT DOSE: 2189.38 mGy.cm HISTORY: Trauma fall TECHNIQUE: Multiaxial CT images of the cervical spine were performed and reformatted in the sagittal and coronal plane without the use of contrast. COMPARISON: None. FINDINGS: No fractures. No subluxation. Prevertebral soft tissues and the C1-C2 interval are intact. No pneumothorax. Considerable degenerative change throughout. IMPRESSION: No fractures within the cervical spine. Degenerative change. EKG artifact present, Afib with RVR rate 104, no ST or T wave abnormality Impression - H&P Impression Assessment and Plan ALTERED MENTAL STATUS Presents with fall, confusion, blurred vision Ddx includes TIA/CVA, metabolic encephalopathy due to infection and/or dehydration Infection considered due to leukocytosis (14K) and HR >90; afebrile, lactic acid WNL, procalcitonin pending; no source identified- no infiltrate on CXR, UA does not appear infected Received dose of cefepime in ED; will hold off on further abx for now Blood cx and urine cx pending Hold Ativan, [place], Ambien, methocarbamol for AMS RULE OUT CVA Risk factors- HTN, Afib CT head- Possible small subacute right periventricular infarct. Age-related atrophy and chronic small vessel change. No acute intracranial hemorrhage. Check MRI brain, MRA head and neck, echo with bubble study, fasting lipid panel , A1c Placed on aspirin and statin May need IV heparin for stroke with AF- will be decided after MRI PT/ OT evaluations Consult [facility] neurology; pt known to Dr. Aleman (follows for migraines) AFIB WITH RVR- NEWLY DIAGNOSED Rate ~100 Potassium low- replacing; check mag- ok; TSH WNL Received dose of cefepime for ? infxn given leukocytosis and tachycardia, however no source identified Check echo Lopressor 2.5 mg PRN HR >110 CHADS2 score- 1 for HTN plus 1-2 if she is truly having TIA or CVA May start IV heparin later tonight after MRI results ? whether candidate for long term care phlebotomist AC due to frequent falls Consult cardiology S/P FALL Unclear details, unwitnessed Check x-ray bilateral hip to r/o fx due to pain with ROM MILD RHABDOMYOLYSIS Secondary to fall CK ~4000 Continue IVF's Recheck CK in am MILD TROPONIN ELEVATION Troponin is 0.1 No angina; possibly due to AF with RVR EKG- AF with RVR, no STTWA Trend serial cardiac enzymes HYPOKALEMIA Replace and monitor Check mag HISTORY OF MIGRAINE Depakote level OK- continue Depakote DEPRESSION Continue Paxil GERD Continue PPI DVT PROPHYLAXIS Heparin SQ CODE STATUS Full code per my discussion with son Juvencio who is POA via phone call. He wishes to receive updates with any changes at [phone]. DISPOSITION Follows w/ Dr. Bojorquez for primary care Lives alone which is unsafe for her; social service coordinator consulted for discharge planning Patient seen in collaboration with Dr. Figueroa. Please see his addendum. Attending Addendum Pt was seen and examined. Agreed with Nela VUONG assessment and plan. Briefly, 71 y/o female with PMH of hypertension, hx of fall with fracture was brought to the ED with AMS. As per son and ER documentation patient was found today by the police in her home. Police called EMS and Pt was brought to the ER. Patient was found naked in the position on the floor of her kitchen. Pt is confused and cannot provide history. Pt denies any chest pain, palpitation and sob. General- confused Head- atraumatic Eyes- PERRL, EOMI ENT- oropharynx clear Neck- supple, no JVD Lungs- No wheezing Heart- irregular rhythm Abdomen- normal bowel sounds, soft Extremities- No calf tenderness, b/l hips tenderness Neuro- alert, PERRL, EOMI; no facial palsy; no dysarthria Skin- warm & dry A/P ALTERED MENTAL STATUS Presents with fall, confusion, blurred vision Possible related to infection vs dehydration vs TIA Need to R/O CVA CT head showed Possible small subacute right periventricular infarct. elevated WBC Received dose of cefepime in ED; will hold off on further abx for now Blood cx and urine cx pending Hold meds with [employer] SUPERVISOR side effects Will get MRI/MRA head and MRA of neck Neuro Consult Case discussed with Neuro Dr. Haile about starting heparin drip in the setting of brain infarct recommend to wait for the MRI and if it seem like it is an emboli stroke vs large infarct. if it a large infarct, will hold on heparin drip due to risk of bleeding neuro check fall precaution Case management consult for placement AFib Unknown onset Elevated troponin will get a [facility] cardio consult consider to start heparin drip, but need to r/o of any brain hemorrhage continue telemetry Lab, Imaging, EKG reviewed Please refer to Nela VUONG documentation for other problems. Annamaria Figueroa MD VTE Prophylaxis VTE Risk Assessment Done? Y/N: Yes Risk Level: Moderate Given or contraindicated: Unfractionated heparin SQ Physical Exam (per Admitting): General Appearance: WD/WN, no apparent distress, + pertinent finding (alert confused 71 year old female, son and daughter in law at bedside) Head: normocephalic, atraumatic Eyes: normal inspection, PERRL, EOMI ENT: normal ENT inspection, hearing grossly normal, pharynx normal Neck: supple, no JVD, trachea midline Respiratory/Chest: lungs clear, normal breath sounds, no respiratory distress, no accessory muscle use Cardiovascular: no murmur, + irregularly irregular Abdomen/GI: normal bowel sounds, non tender, soft Back: + pertinent finding (kyphosis) Extremities/Musculoskelatal: no calf tenderness, no pedal edema Neurologic/Psych: 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 unable to recall recent events. tangential speech at times. vendor specialist strength 5/5 bilaterally. unable to lift bilateral legs off the bed. ankle flexion/ extension 5/5 bilaterally) Skin: normal color, warm/dry, + pertinent finding (ecchymosis scattered on extremities) Hospital Course ALTERED MENTAL STATUS-resolved Presents with fall, confusion, blurred vision Differential includes TIA/CVA, metabolic encephalopathy due to medication, infection and/or dehydration Initial CT of the Head-Possible small subacute right periventricular infarct, not shown in repeat and on in MRI MRA :motion artefact ,no significant arterial stenosis Received dose of cefepime in ED and not continued Hold Ativan, [place], Ambien, methocarbamol for AMS Will not prescribe those medicine on discharge Remains stable with any more confusion RULE OUT CVA Risk factors- HTN, Afib-noted in ER CT head- Possible small subacute right periventricular infarct. Age-related atrophy and chronic small vessel change. No acute intracranial hemorrhage. Check MRI brain, MRA head and neck-has not been possible due to movement ECHO: Normal LV chamber size with mild concentric LVH, sigmoid appearing septum. * Normal LV systolic function, EF 55-60%. * No segmental left ventricular wall motion abnormalities are noted. * Aortic valve sclerosis mild, without significant aortic valvular stenosis. * Mild tricuspid regurgitation. * Small, loculated posterior pericardial effusion. NO ASD and PFO was not assessed Placed on aspirin and statin Appreciate Neurology input MRI: There is no acute intracranial abnormality noting a motion degraded examination. MRA-motion degraded examination.No stenosis Clinically no focal neuro deficit NO stroke noted Will get PT/OT and likely discharge to rehab when accepted Getting PT-will be transferred to [facility] today Subacute/Acute Pelvic Fracture on X-ray Ambulatory dysfunction with frequent falls Recent Right HIP replacement Ortho consulted -appreciate Input and recommendation PT and brace -no surgery Pain is controlled Minimally high CPK From fall Tachyarrhythmia-secondary to MAT AFIB WITH RVR- ruled out Potassium low- replacing; check mag- ok; TSH WNL Lopressor 2.5 mg PRN HR >110 CHADS2 score- 1 for HTN plus 1-2 if she is truly having TIA or CVA Started on IH Heparin,stopped this AM following Cardiology evaluation Only Aspirin BB dose is increased No more arrhythmia Remains stable without any symptoms S/P FALL Unclear details, unwitnessed Check x-ray bilateral hip to r/o fx due to pain with ROM Will need rehab Take precaution while ambulating MILD RHABDOMYOLYSIS Secondary to fall CK ~4000 Continue IVF's Weight Loss Underweight/cachectic, mild/moderate protein-calorie malnutrition Nutrition service consulted MILD TROPONIN ELEVATION Troponin is 0.1 No angina; possibly due to AF with RVR EKG- AF with RVR, no STTWA Trend serial cardiac enzymes-No ACS Small dose of BB added HYPOKALEMIA Replace and monitor Check mag Normalized HISTORY OF MIGRAINE Depakote level OK- continue Depakote DEPRESSION Continue Paxil GERD Continue PPI DVT PROPHYLAXIS Heparin SQ CODE STATUS Full code per my discussion with son Juvencio who is POA via phone call. He wishes to receive updates with any changes at [phone]. DISPOSITION Follows w/ Dr. Bojorquez for primary care Lives alone which is unsafe for her; social service coordinator consulted for discharge planning Discussed with the Son and Grandson PT/OT Likely discharge to Rehab today Total time spent on discharge = 35 minutes This includes examination of the patient, discharge planning, medication reconciliation, and communication with other providers. Discharge Instructions Date of Service March 07, 2017. Admission Reason for Admission: Ams, Cva Discharge Discharge Diagnosis / Problem: Pubic ramus fracture Discharge Goals Goal(s): Decrease discomfort Activity Recommendations Activity Limitations: per Instructions/Follow-up section Weightbearing Status: Left weightbearing (as tolerated), Right weightbearing ( as tolerated) . Instructions / Follow-Up Instructions / Follow-Up Call [facility] at [phone] to schedule a follow up with Dr. Mast in ~3-4 wks for x-rays and re-evaluation. Current Hospital Diet Patient's current hospital diet: AHA Diet (Heart Healthy) Discharge Diet Recommended Diet: AHA Diet (Heart Healthy) Pending Studies Studies pending at discharge: no Laboratory Results Hemoglobin A1c Test 03/05/17 16:50 Range/Units Estimated Average Glucose 111 mg/dl Hemoglobin A1c 5.5 4.5-5.6 % Lipid Panel Test 03/06/17 05:12 Range/Units Triglycerides Level 137 0-150 mg/dl Cholesterol Level 158 0-200 mg/dl HDL Cholesterol 58 mg/dl Cholesterol/HDL Ratio 2.7 LDL Cholesterol, Calculated 73 mg/dl Medical Emergencies . Who to Call and When: Medical Emergencies: If at any time you feel your situation is an emergency, please call 911 immediately. . Non-Emergent Contact Non-Emergency issues call your: Primary Care Provider . "Provider Documentation" section prepared by Juan A Alex. . VTE Core Measure Inpt VTE Proph given/why not?: Unfractionated heparin SQ <Electronically signed by Juan A Alex PA-C> <Electronically signed by Roddy Renee M.D.> Signed: 03/07/172202 Signed: 03/08/17 0955 The status of this report is Signed * If report status is Draft, the document has not been finalized by the responsible provider. Addendum: 03/11/17 1400 Addendum: Beth Jolly M.D. on 03/11/17 @ 14:00 Discharge Inst - Addendum Addendum Notes: Please make an appointment with your PCP in 1 week Addendum Provider: Addendum Notes were documented by provider Beth Jolly. Signed: 03/07/17 220
[2017-03-11] MEDS ORDERED: ZOLPIDEM TARTRATE 5 MG TAB PO PRN (22:00)
== END 2017-03-11 19:35 | DRG 64 ==
LOC: ENRESERVTM → ENRESERVDT → EDBD 16:05 → C.EDB 16:08 → C.2T 18:23 → C.MS4W 03-08 16:00
PROVIDERS: ADMIT Internal Medicine; ATTEND Internal Medicine
DX: I63.9 Cerebral infarction, unspecified (principal); G93.41 Metabolic encephalopathy; S32.512A Fracture of superior rim of left pubis, initial encounter for closed fracture; M62.82 Rhabdomyolysis; E44.0 Moderate protein-calorie malnutrition; R64 Cachexia; I10 Essential (primary) hypertension; I48.91 Unspecified atrial fibrillation; E87.6 Hypokalemia; F32.9 Major depressive disorder, single episode, unspecified; K21.9 Gastro-esophageal reflux disease without esophagitis; Z68.20 Body mass index [BMI] 20.0-20.9, adult; Z79.899 Other long term (current) drug therapy; F17.200 Nicotine dependence, unspecified, uncomplicated; W19.XXXA Unspecified fall, initial encounter; Y92.009 Unspecified place in unspecified non-institutional (private) residence as the place of occurrence of the external cause

== ENCOUNTER 2017-12-01 15:24 | Inpatient (IN) | payer MEDICARE, OTHER ==
[~2017-12-01] VITALS: Ht 162.6 cm; Wt 45.7 kg
[~2017-12-01 15:24] MED LIST changes: -AMB10; +AMB5 PO; +ASPEC81 PO; +ATV/1 PO; +DIVA500T59 PO; -DPKEC500; +HYDR-5688 PO; +LISI20TA3 PO; +LPR25 PO; +LPT40 PO; +MCRK20 PO; -PARO1TAB29; +PARO40TA2 PO; -SUMA50TA15; +SUMA50TA15 PO
[2017-12-01 18:40] VITALS: BP 170/92; PULSE 100; TEMP 36.6; O2SAT 92
[2017-12-01 19:02] LABS: HEMATOCRIT 37.8 % (37-47); HEMOGLOBIN 11.5 g/dL (12.0-16.0); MEAN CELL VOLUME 78.6 fL (80-100); MEAN CORPUSCULAR HEMOGLOBIN 23.9 pg (25-34); MEAN PLATELET VOLUME 8.9 fL (7.4-10.4); PLATELET COUNT 449 K/uL (130-400); RED CELL DISTRIBUTION WIDTH CV 20.8 % (11.5-14.5); RED CELL DISTRIBUTION WIDTH SD 59.9 fL (36.4-46.3); WHITE BLOOD COUNT 9.38 K/uL (4.8-10.8)
[2017-12-01 19:12] LABS: MEAN CORPUSCULAR HGB CONC 30.4 g/dl (32-36)
[2017-12-01] MEDS ORDERED: ONDANSETRON INJ 2 MG/ML 2 ML VIAL IV PRN (19:15)
[2017-12-01 19:35] LABS: ALBUMIN 3.6 gm/dl (3.4-5.0); ALKALINE PHOSPHATASE 117 U/L (45-117); ALT/SGPT 9 U/L (12-78); AST/SGOT 8 U/L (15-37); BLOOD UREA NITROGEN 24 mg/dl (7-18); CALCIUM 8.5 mg/dl (8.5-10.1); CARBON DIOXIDE 26 mmol/L (21-32); CREATININE 0.83 mg/dl (0.60-1.20); GLUCOSE 144 mg/dl (70-99); POTASSIUM 3.5 mmol/L (3.5-5.1); SODIUM 137 mmol/L (136-145); TOTAL PROTEIN 7.4 gm/dl (6.4-8.2)
[2017-12-01 19:39] VITALS: BP 184/98; PULSE 113; TEMP 37.8; O2SAT 96; Ht 162.6 cm; Wt 45.7 kg
--- NOTE | 2017-12-01 19:52 | History and Physical ---
History & Physical Date & Time of Service: Dec 01, 2017 at 19:39 Chief Complaint: Gi Bleed W/Anemia Primary Care Physician: No Doctor, Assigned History of Present Illness Source: patient, clinic records, hospital records Patient is a 71 yo female who was transferred to the hospital via helicopter from [facility] for hypotension, tachycardia, and acute upper GI bleed. The patient is not a very good historian thus information was obtained from records. Attempted to contact her family Troy Mcqueen but he was not reachable. Patient reports having melena, coffee gorund emesis, and abdominal pain for the last 2 days. She states she only went to the ER today because her son encouraged her to go. She denies any similar symptoms in the past, although she vaguely mentions a prior GI bleed for which she was admitted to [facility] and was given blood but denies any intervention or additional information. She reports that she lives with her son and has been in good health overall. She admits that she takes 4-8 aleve tablets daily for chronic hip and back pain. She states she has noticed abdominal pain preceding episodes of vomiting. She denies any prior endoscopy. The patient was also recently treated for bronchitis with a course of prednisone and doxycycline, and per outpatient records the patient's PCP had referred the patient for endoscopy and also mentioned the patient has had irregular pulse and had a referral to have a TTE which was performed a month ago and showed grade I diastolic dysfunction and EF 60%. Also per outpatient records, the patient has been noted to be a vague historian and often answers with "I don't know" or "maybe" and has a poor recollection of her past history. Past Medical/Surgical History Medical Problems: (1) Anxiety Status: Chronic (2) Depression Status: Chronic (3) GERD (gastroesophageal reflux disease) Status: Chronic (4) Hypertension Status: Chronic (5) Kyphosis of thoracic region Status: Chronic (6) Migraine Status: Chronic (7) SCC (squamous cell carcinoma) Permanent Comment: right thigh 2001 Status: Chronic Surgical Problems: (1) History of hysterectomy (2) History of shoulder surgery (3) S/P total hip arthroplasty (4) Diverticulitis s/p colostomy with subsequent reversal Family History Patient denies any known family history of stroke, cancer, or cardiovascular disease Social History Smoking Status: Current Every Day Smoker (restarted smoking in 2004 after stopping for 30 years) Alcohol Use: occasionally Drug Use: none Marital Status: Housing status: lives with family Immunizations History of Influenza Vaccine: Yes (11/12/17) Tetanus Immunization Date: February 25, 1999 History of Pneumococcal: Yes (11/12/17) History of Hepatitis B Vaccine: No Multi-Drug Resistant Organisms History of MDRO: No Allergies Coded Allergies: Iodinated Diagnostic Agents (Verified Allergy, Severe, ANAPHYLAXIS -- "Contrast Media", 03/05/17) Iodine (Verified Allergy, Unknown, 03/05/17) Home Medications Scheduled Hctz/Losartan (Hyzaar 12.5MG/50MG), 1 TAB PO DAILY Lisinopril (Prinivil), 20 MG PO DAILY Paroxetine (Paxil), 40 MG PO DAILY Trazodone Hcl (Trazodone), 50 MG PO HS Review of Systems Constitutional: + chills, No fever, No sweats, No weight loss Eyes: No worsening of vision, No eye pain, No redness ENT: No nasal symptoms, No sore throat, No trouble swallowing Respiratory: No cough (patient denies but had this complaint on last outpt visit), No shortness of breath, No dyspnea on exertion Cardiovascular: No chest pain, No edema, No palpitations Abdomen: + pain, + nausea, + vomiting, + diarrhea, + GI bleeding Musculoskeletal: No joint pain, No swelling, No calf pain Genitourinary - Female: No dysuria, No urinary frequency, No urinary urgency Neurologic: No paralysis, No weakness, No numbness/tingling, No vertigo Psychiatric: No depression symptoms, No anxiety, No insomnia Endocrine: No fatigue, No excessive thirst, No excessive urination Hematologic / Lymphatic: No abnormal bleeding/bruising, No clotting problems, No night sweats Integumentary: No rash, No itch, No new/changing skin lesions Physical Exam General Appearance: WD/WN, no apparent distress Head: normocephalic, atraumatic Eyes: PERRL, EOMI, sclerae normal (conjunectivae clear) ENT: hearing grossly normal, pharynx normal Neck: supple, no JVD, no carotid bruits, trachea midline Respiratory/Chest: chest non-tender, normal breath sounds, no respiratory distress, no accessory muscle use Cardiovascular: no edema, no gallop, no JVD, no murmur, + irregularly irregular Abdomen/GI: normal bowel sounds, soft, no organomegaly, + tenderness ( suprapubic) Back: no CVA tenderness, no muscle spasm Extremities/Musculoskelatal: no calf tenderness, normal capillary refill, no pedal edema Neurologic/Psych: no motor/sensory deficits, alert, normal mood/affect, oriented x 3 Skin: normal color, warm/dry, no rash Diagnostics Laboratory Results Results Past 24 Hours Test 12/01/17 18:51 Range/Units White Blood Count 9.38 4.8-10.8 K/uL Red Blood Count 4.81 4.2-5.4 M/uL Hemoglobin 11.5 12.0-16.0 g/dL Hematocrit 37.8 37-47 % Mean Corpuscular Volume 78.6 80-100 fL Mean Corpuscular Hemoglobin 23.9 25-34 pg Mean Corpuscular Hemoglobin Concent 30.4 32-36 g/dl RDW Standard Deviation 59.9 36.4-46.3 fL RDW Coefficient of Variation 20.8 11.5-14.5 % Platelet Count 449 130-400 K/uL Mean Platelet Volume 8.9 7.4-10.4 fL Prothrombin Time 10.1 9.0-12.0 SECONDS Prothromb Time International Ratio 1.0 0.9-1.1 Sodium Level 137 136-145 mmol/L Potassium Level 3.5 3.5-5.1 mmol/L Chloride Level 103 98-107 mmol/L Carbon Dioxide Level 26 21-32 mmol/L Anion Gap 8.0 3-11 mmol/L Blood Urea Nitrogen 24 7-18 mg/dl Creatinine 0.83 0.60-1.20 mg/dl Estimated GFR () 81.7 Estimated GFR (Non- 70.4 BUN/Creatinine Ratio 28.5 10-20 Random Glucose 144 70-99 mg/dl Calcium Level 8.5 8.5-10.1 mg/dl Total Bilirubin 0.5 0.2-1 mg/dl Aspartate Amino Transf (AST/SGOT) 8 15-37 U/L Alanine Aminotransferase (ALT/SGPT) 9 12-78 U/L Alkaline Phosphatase 117 45-117 U/L Total Protein 7.4 6.4-8.2 gm/dl Albumin 3.6 3.4-5.0 gm/dl Globulin 3.8 2.5-4.0 gm/dl Albumin/Globulin Ratio 0.9 0.9-2 EKG EKst degree AV block (DC 214); tachycardia, PVC Recent Outpatient TTE: Interpretation Summary The examination is adequate to evaluate the referral indication. There is isolated basal septal hypertrophy with maximal thickness of 2 cm. The left ventricular wall motion is normal. Qualitative LV ejection Fraction = 60%. There is no evidence of dynamic left ventricular outflow tract obstruction. The left atrium is mildly enlarged (3541 ml/m^2). The left ventricular diastolic function is mildly abnormal (grade I). Mild aortic valve regurgitation is present. Mild mitral regurgitation is present. Mild tricuspid regurgitation is present. There is no evidence of pulmonary hypertension. Impression Assessment and Plan ACUTE GI BLEED: -likely upper as presented to [place] with coffee ground emesis and melena -start protonix drip -was transfused 1 unit PRBCs en route from [facility] to [facility] -monitor H&H q 6 hours overnight -GI consulted -NPO -IV fluids started -Hb after transfusion is 11.5 -daily naproxen use, hx of GERD and esophagitis, recent doxycycline + prednisone use TACHYCARDIA: -per records the patient had become hypotensive and tachycardic just prior to transfer, HR was ranging 110-160's; has been hypertensive since arrival -was reported to have irregular HR as an outpatient as well and thus recent TTE -EKG: atrial tachycardia, 1st degree AV block, PVC -monitor in tele -will consider Cardiology eval MICROCYTIC ANEMIA: -outpatient labs from 3 weeks ago showed a Hb of 7.7 -patient had been referred for endoscopy as outpatient but not yet scheduled -GI consulted for evaluation of above -transfuse as needed HTN: -was on losartan-hctz per outpatient records, but patients son stated patient was on lisinopril as well -restart BP meds with holding parameters dependant on next set of vitals and Hb Level of Care Telemetry Resuscitation Status FULL RESUSCITATION VTE Prophylaxis VTE Risk Assessment Done? Y/N: Yes Risk Level: Moderate Given or contraindicated: SCD's
[2017-12-01 20:00] VITALS: O2SAT 93
[2017-12-01 20:29] LABS: HEMATOCRIT 33.8 % (37-47); HEMOGLOBIN 10.4 g/dL (12.0-16.0)
[2017-12-01] MEDS ORDERED: TRAZ50TA35 PO (20:37)
[2017-12-01] MEDS ORDERED: PARO1TAB29 PO (20:37)
[2017-12-01] MEDS ORDERED: HYZ/50125 PO (20:37)
[2017-12-01] MEDS: SODIUM CHLORIDE 0.9% 1000ML 1,000 ML IV SCH (20:45)
[2017-12-01] MEDS: PANTOprazole INJ 40 MG in DEXTROSE 5% 100ML IV SCH ×2 (20:47→23:59)
[2017-12-01 21:41] VITALS: BP 168/86
--- NOTE | 2017-12-01 22:43 | DIAGNOSTIC IMAGING REPORT ---
SINGLE VIEW CHEST CLINICAL HISTORY: Dyspnea. FINDINGS: An AP, portable, upright chest radiograph is compared to study dated 03/05/2017. The examination is degraded by portable technique and patient rotation. The cardiomediastinal silhouette is unremarkable. There is after sclerotic calcification of the thoracic area. A large hiatal hernia is noted. Chronic interstitial thickening is similar to previous. No airspace consolidation or large pleural effusion is identified. No pneumothorax is seen. The skeletal structures are osteopenic. There are healed right-sided rib fractures. A left shoulder arthroplasty is in place. IMPRESSION: 1. No acute cardiopulmonary abnormality. 2. Hiatal hernia. Electronically signed by: Gary Mitchell M.D. 12/01/2017 10:42 PM Dictated Date/Time: 12/01/2017 10:40 PM
[2017-12-01 23:46] LABS: HEMATOCRIT 32.3 % (37-47); HEMOGLOBIN 9.8 g/dL (12.0-16.0)
[2017-12-02] VITALS (15 sets, daily range): BP systolic 54–170; BP diastolic 52–86; PULSE 70–83; TEMP 37–37.8; O2SAT 93–98
[2017-12-02 04:06] LABS: HEMATOCRIT 30.1 % (37-47)
[2017-12-02] MEDS ORDERED: ACETAMINOPHEN 325 MG TAB PO STA (04:30)
[2017-12-02] MEDS: PANTOprazole INJ 40 MG in DEXTROSE 5% 100ML IV SCH ×4 (05:47→22:36)
[2017-12-02] MEDS: PAROXETINE 20 MG TAB PO SCH (07:46)
[2017-12-02] MEDS: SODIUM CHLORIDE 0.9% 1000ML 1,000 ML IV SCH (07:47)
[2017-12-02] MEDS ORDERED: LISINOPRIL 20 MG TAB PO SCH (09:00)
[2017-12-02 09:29] LABS: HEMATOCRIT 33.1 % (37-47); HEMOGLOBIN 10.2 g/dL (12.0-16.0)
--- NOTE | 2017-12-02 10:01 | Clinical Documentation Query ---
CLINICAL DOCUMENTATION QUERY Dr. VOSS, In your clinical opinion is this patient being managed for: ( x ) Acute blood loss anemia ( ) Not Agree ( ) Other explanation of clinical findings (Please Explain) ( ) Unable to determine (Please Define) ( ) Need to Discuss The medical record reflects the following clinical findings, treatment, and risk factors. Clinical Indicators: 71 yo female transferred from outside hospital with GI bleed. Hgb 11.5 upon arrival at [facility] but had been transfused while being transferred here. Repeated Hgb dropped to 9.0. Treatment:IV fluids, tele, 2U PRBC total, GI consult, Q6 hr H/H, NPO, IV protonix gtt Risk Factors: nonsteroidal use, hx GERD and esophagitis Please clarify and document your clinical opinion in the progress notes and discharge summary. Terms such as "probable", "suspected", "likely", "questionable", "possible", or "still to be ruled out" are acceptable. IF IN AGREEMENT, YOU MUST DOCUMENT ABOVE DIAGNOSTIC STATEMENT IN DAILY PROGRESS NOTES AND DISCHARGE SUMMARY. This document is not part of the patient's record. Thank You, Tamara Prado RN [phone]
--- NOTE | 2017-12-02 10:07 | Gastrointestinal Consultation ---
Gastrointestinal Consultation Date of Consultation: Dec 02, 2017 Attending Physician: Dr. Palomino Consulting Physician: Dr. Ritter Reason for Consultation: Melena, coffee grounds emesis, anemia History of Present Illness Patient is a 71 year old female patient of Dr. Arteaga with a hx of HTN, Anxiety , Migraines, Kyphosis, GERD. She was awakened in the middle of the night Thursday night/Thursday morning. She passed 6-8 loose black BMs during that night. She also had several episodes of coffee grounds emesis yesterday. Early yesterday afternoon, she presented to [facility] and was flown by helicopter to our facility. She takes four 220mg Aleve every afternoon for back pain, for a few years. When asked about abdominal pain, she tells me that she has lower abdomen pain ( placing her hand over the suprapubic area when describing) and that she has had this for "a long time." She denies any epigastric pain or heartburn but does have,"indigestion every couple of months." She denies significant alcohol intake. On arrival at [facility], Hb was 11 but she believes that she received blood at [facility]. Since arrival, she has been hemodynamically stable, has not had melena or hematemesis (or any BMs or any vomiting). This morning, her Hb is 10.2. Her BUN on arrival yesterday was 24. Past Medical/Surgical History Medical Problems: (1) Altered mental status Status: Acute (2) Atrial fibrillation with RVR Status: Acute (3) CVA (cerebral vascular accident) Status: Acute (4) Elevated troponin Status: Acute (5) Rhabdomyolysis Status: Acute Past Medical History: 1. Anxiety 2. Depression 3. GERD 4. HTN 5. Kyphosis 6. Migraines 7. Squamous Cell Carcinoma of the thigh. Past Surgical History: 1. Hysterectomy 2. Shoulder surgery 3. Rt total hip arthroplasty 4. Diverticulitis s/p colostomy with subsequent reversal 2005 Social History Smoking Status: Current Every Day Smoker (restarted smoking in 2004 after stopping for 30 years) Drug Use: none Marital Status: Housing Status: lives alone Allergies Coded Allergies: Iodinated Diagnostic Agents (Verified Allergy, Severe, ANAPHYLAXIS -- "Contrast Media", 03/05/17) Iodine (Verified Allergy, Unknown, 03/05/17) Current Medications Home Meds and Scripts Medications Dose Route/Sig Max Daily Dose Days Date Category Paxil (Paroxetine HCl) 40 Mg Tab 40 Mg PO DAILY 12/01/17 Reported Trazodone (Trazodone HCl) 50 Mg Tab 50 Mg PO HS 12/01/17 Reported Hyzaar 12.5MG/50MG (HCTZ/Losartan Potassium) Tab 1 Tab PO DAILY 30 12/01/17 Reported Prinivil (Lisinopril) 20 Mg Tab 20 Mg PO DAILY 03/05/17 Reported Review of Systems Constitutional: + weakness (and dizziness "a couple times in the past few weeks "), No fever, No chills, No sweats, No weight loss Eyes: No eye pain, No redness ENT: No sore throat, No trouble swallowing, No pain on swallowing Respiratory: No cough, No wheezing, No shortness of breath, No dyspnea on exertion Cardiac: No chest pain, No edema, No palpitations Abdomen: + see HPI Neuro: No memory loss, No weakness, No numbness/tingling, No vertigo, No balance problems Psych: No depression symptoms, No anxiety, No insomnia Heme: No abnormal bleeding/bruising, No night sweats Endo: No excessive thirst, No excessive urination Skin: No rash, No itch, No new/changing skin lesions, No jaundice Physical Exam Date Time Temp Pulse Resp B/P (MAP) Pulse Ox O2 Delivery O2 Flow Rate FiO2 12/02/17 08:00 Room Air 12/02/17 07:49 81 16 168/81 93 12/02/17 07:15 37.3 82 15 170/75 97 12/02/17 06:45 37.5 83 19 148/82 95 12/02/17 06:30 37.2 79 18 160/76 97 12/02/17 06:15 37.3 83 18 166/55 95 12/02/17 06:00 37.3 79 17 152/68 96 12/02/17 05:45 37.8 80 19 152/86 95 12/02/17 05:41 37.0 80 18 153/68 96 12/02/17 04:00 95 Nasal Cannula 12/02/17 03:46 37.4 80 16 150/84 (106) 98 Nasal Cannula 2.0 12/02/17 00:01 37.8 83 19 122/52 (75) 95 Nasal Cannula 2.0 12/02/17 00:00 95 Nasal Cannula 12/01/17 22:00 Nasal Cannula 12/01/17 21:41 168/86 (113) 12/01/17 20:00 93 Room Air 12/01/17 19:39 37.8 113 20 184/98 96 Nasal Cannula 2.0 General Appearance: no apparent distress, + pertinent finding (kyphosis) Eyes: normal inspection, EOMI Neck: supple, no adenopathy, thyroid normal, no JVD Respiratory/Chest: chest non-tender, lungs clear, normal breath sounds, no accessory muscle use Cardiovascular: regular rate, rhythm, no JVD, no murmur Abdomen: normal bowel sounds, soft, no organomegaly, + tenderness (mild epigastric tenderness) Extremities: normal inspection, no pedal edema, normal capillary refill Neurologic/Psych: alert, normal mood/affect, oriented x 3 Skin: normal color, no jaundice, warm/dry, no rash Laboratory Results Last 24 Hours Test 12/01/17 18:51 12/01/17 19:55 12/01/17 23:40 12/02/17 03:47 White Blood Count 9.38 K/uL Red Blood Count 4.81 M/uL Hemoglobin 11.5 g/dL 10.4 g/dL 9.8 g/dL 9.0 g/dL Hematocrit 37.8 % 33.8 % 32.3 % 30.1 % Mean Corpuscular Volume 78.6 fL Mean Corpuscular Hemoglobin 23.9 pg Mean Corpuscular Hemoglobin Concent 30.4 g/dl RDW Standard Deviation 59.9 fL RDW Coefficient of Variation 20.8 % Platelet Count 449 K/uL Mean Platelet Volume 8.9 fL Prothrombin Time 10.1 SECONDS Prothromb Time International Ratio 1.0 Sodium Level 137 mmol/L Potassium Level 3.5 mmol/L Chloride Level 103 mmol/L Carbon Dioxide Level 26 mmol/L Anion Gap 8.0 mmol/L Blood Urea Nitrogen 24 mg/dl Creatinine 0.83 mg/dl Estimated GFR () 81.7 Estimated GFR (Non- 70.4 BUN/Creatinine Ratio 28.5 Random Glucose 144 mg/dl Calcium Level 8.5 mg/dl Total Bilirubin 0.5 mg/dl Aspartate Amino Transf (AST/SGOT) 8 U/L Alanine Aminotransferase (ALT/SGPT) 9 U/L Alkaline Phosphatase 117 U/L Total Protein 7.4 gm/dl Albumin 3.6 gm/dl Globulin 3.8 gm/dl Albumin/Globulin Ratio 0.9 Test 12/02/17 09:14 Hemoglobin 10.2 g/dL Hematocrit 33.1 % Impression Patient is a 71 year old female with recent melena and coffee grounds emesis. Hb is stable now her H&P documented that she received a unit of RBCs enroute to [facility] and that OP records show a microcytic anemia a month ago. Differentials considered are ulcer disease and she is at risk for this with chronic NSAID use, small bowel AVMs. Additionally, if she does have a chronic microcytic anemia, colon cancer should be ruled out. Plan 1. Agree with Protonix drip. 2. According to H&P, prior to transfer, she had hypotensive with tachycardia and cardiology clearance was considered. Will await cardiology clearance prior to going forward with EGD, but will plan for EGD at some time today or tomorrow. If no cause of GI bleeding/anemia found on EGD then will consider colonoscopy. Please keep her NPO. I performed a history and physical examination of the patient. I have discussed the patient's case, impression and plan with YADIRA Campbell. Her note reflects my findings and plan. Most c/w upper GI bleed from PUD related to NSAID use. Will arrange EGD. Discussed with patient and family at bedside. Nacho Ritter MD
--- NOTE | 2017-12-02 11:10 | Progress Note ---
Medicine Progress Note Date & Time of Visit: Dec 02, 2017 at 10:51. Subjective 71 yo F with h/o GI bleed and recent melena, abdominal discomfort and coffee ground emesis. Symptoms have resolved overnight after being lifeflighted to [facility] from [place]. Vitals are stable. GI is requesting Cardiology to clear her for scope which is planned for later today. -abdominal pain still present, pt unable to describe, no radiation -no issues with chest pain or shortness of breath -no BM overnight -denies nausea, denies emesis overnight -pt is hungry and asking for food. Objective Last 8 Hrs Date Time Temp Pulse Resp B/P (MAP) Pulse Ox O2 Delivery O2 Flow Rate FiO2 12/02/17 08:00 Room Air 12/02/17 07:49 81 16 168/81 93 12/02/17 07:15 37.3 82 15 170/75 97 12/02/17 06:45 37.5 83 19 148/82 95 12/02/17 06:30 37.2 79 18 160/76 97 12/02/17 06:15 37.3 83 18 166/55 95 12/02/17 06:00 37.3 79 17 152/68 96 12/02/17 05:45 37.8 80 19 152/86 95 12/02/17 05:41 37.0 80 18 153/68 96 12/02/17 04:00 95 Nasal Cannula 12/02/17 03:46 37.4 80 16 150/84 (106) 98 Nasal Cannula 2.0 Physical Exam: GEN: thin, frail, in no acute distress, alert and appropriate HEENT: NC/AT, normal sclerae, MMM CARDIO: reg rate, S1/2 heard without m/g/r LUNGS: CTA bilaterally, no crackles, rales or wheezes, good diaphragmatic excursion, kyphosis noted ABD: soft, TTP in suprapubic area, non-distended, no rebound or guarding, +BS EXTREMITY: RP and DP palpable 2+ bilat, no LE swelling or edema, extremities are warm and well-perfused NEURO: CN 2-12 grossly intact, no gross focal deficits. MUSC: 5/5 strength throughout, no focal deficits SKIN: warm and dry Laboratory Results: 12/01/17 18:51 12/02/17 09:14 12/01/17 18:51 Test 12/01/17 18:51 12/02/17 10:11 Red Blood Count 4.81 M/uL (4.2-5.4) Mean Corpuscular Volume 78.6 fL (80-100) Mean Corpuscular Hemoglobin 23.9 pg (25-34) Mean Corpuscular Hemoglobin Concent 30.4 g/dl (32-36) RDW Standard Deviation 59.9 fL (36.4-46.3) RDW Coefficient of Variation 20.8 % (11.5-14.5) Mean Platelet Volume 8.9 fL (7.4-10.4) Prothrombin Time 10.1 SECONDS (9.0-12.0) Prothromb Time International Ratio 1.0 (0.9-1.1) Anion Gap 8.0 mmol/L (3-11) Estimated GFR () 81.7 Estimated GFR (Non- 70.4 BUN/Creatinine Ratio 28.5 (10-20) Calcium Level 8.5 mg/dl (8.5-10.1) Total Bilirubin 0.5 mg/dl (0.2-1) Aspartate Amino Transf (AST/SGOT) 8 U/L (15-37) Alanine Aminotransferase (ALT/SGPT) 9 U/L (12-78) Alkaline Phosphatase 117 U/L (45-117) Total Protein 7.4 gm/dl (6.4-8.2) Albumin 3.6 gm/dl (3.4-5.0) Globulin 3.8 gm/dl (2.5-4.0) Albumin/Globulin Ratio 0.9 (0.9-2) Date/Time Source Procedure Growth Status 12/02/17 10:11 Urine , Clean Catch Urine Culture Pending Ordered Last 24 Hours Test 12/01/17 18:51 12/01/17 19:55 12/01/17 23:40 12/02/17 03:47 White Blood Count 9.38 K/uL Red Blood Count 4.81 M/uL Hemoglobin 11.5 g/dL 10.4 g/dL 9.8 g/dL 9.0 g/dL Hematocrit 37.8 % 33.8 % 32.3 % 30.1 % Mean Corpuscular Volume 78.6 fL Mean Corpuscular Hemoglobin 23.9 pg Mean Corpuscular Hemoglobin Concent 30.4 g/dl RDW Standard Deviation 59.9 fL RDW Coefficient of Variation 20.8 % Platelet Count 449 K/uL Mean Platelet Volume 8.9 fL Prothrombin Time 10.1 SECONDS Prothromb Time International Ratio 1.0 Sodium Level 137 mmol/L Potassium Level 3.5 mmol/L Chloride Level 103 mmol/L Carbon Dioxide Level 26 mmol/L Anion Gap 8.0 mmol/L Blood Urea Nitrogen 24 mg/dl Creatinine 0.83 mg/dl Estimated GFR () 81.7 Estimated GFR (Non- 70.4 BUN/Creatinine Ratio 28.5 Random Glucose 144 mg/dl Calcium Level 8.5 mg/dl Total Bilirubin 0.5 mg/dl Aspartate Amino Transf (AST/SGOT) 8 U/L Alanine Aminotransferase (ALT/SGPT) 9 U/L Alkaline Phosphatase 117 U/L Total Protein 7.4 gm/dl Albumin 3.6 gm/dl Globulin 3.8 gm/dl Albumin/Globulin Ratio 0.9 Test 12/02/17 09:14 12/02/17 10:11 Hemoglobin 10.2 g/dL Hematocrit 33.1 % Date/Time Source Procedure Growth Status 12/02/17 10:11 Urine , Clean Catch Urine Culture Pending Ordered Assessment & Plan 71 yo F with h/o GI bleed and recent melena, abdominal discomfort and coffee ground emesis. Symptoms have resolved overnight after being lifeflighted to [facility] from [place]. Vitals are stable. GI is requesting Cardiology to clear her for scope which is planned for later today. 1. UGIB-recent coffee ground emesis, melena and hemodynamic instability with hypotension and tachycardia prior to IVF and 2 unit pRBCs. She feels much better this morning with persistent abdominal pain, but denies any further nausea, emesis or BMs. GI was consulted and is requesting Cardiology clearance prior to scope. Protonix drip is on board and pt is NPO. Post transfusion Hb is 11.5. Etiology thought to be NSAID-related with mcfp Aleve use for back pain, and she also has a h/o steroid use in the recent past. 2. Tachycardia-sinus tachy and has resolved after initial resuscitation attempt. Pt denies any chest pain or SOB and feels better overall this morning. 3. Microcytic anemia likely related to acute blood loss as above-pt noted to have outpatient Hb 7.7 a few weeks ago and did not follow-up with GI after referral for endoscopy. Plan per #1. 4. HTN-Pt was recently switched to Losartan HCT 50/12.5 in the clinic. Will stop the lisinopril as she is complaining of a dry cough for months. Will continue Losartan 50mg PO daily and hold the diuretic in setting of acute bleed. 5. Acute blood loss anemia / #1. DVT proph-SCDs/ambulate Full Code Dispo-await scope per GI, cont telemetry for now. Marisa Palomino DO [facility] Hospitalist Consultants: GI Cardio-Yoel Current Inpatient Medications: Current Inpatient Medications Medications (Trade) Dose Ordered Sig/Veronica Route Start Time Stop Time Status Last Admin Dose Admin Ondansetron HCl (Zofran Inj) 4 mg Q6H PRN IV 12/01/17 19:15 12/31/17 19:14 Pantoprazole Sodium 40 mg/ Dextrose 100 ml @ 20 mls/hr Q5H IV 12/01/17 19:45 12/31/17 19:44 12/02/17 05:47 20 MLS/HR Sodium Chloride 1,000 ml @ 80 mls/hr [id number] IV 12/01/17 19:45 12/02/17 19:44 12/02/17 07:47 80 MLS/HR Lisinopril (Zestril Tab) 20 mg DAILY PO 12/02/17 09:00 01/01/18 08:59 12/02/17 07:46 20 MG Paroxetine HCl (pAXil TAB) 40 mg DAILY PO 12/02/17 09:00 01/01/18 08:59 12/02/17 07:46 40 MG
[2017-12-02] MEDS ORDERED: POTASSIUM CHLORIDE 20 MEQ TABCR PO STA (12:15)
[2017-12-02] MEDS ORDERED: LOSARTAN POTASSIUM 50 MG TAB PO ONE (12:30)
--- NOTE | 2017-12-02 12:53 | CARDIOLOGY CONSULTATION ---
DATE OF CONSULTATION: 12/02/2017 REFERRING PHYSICIANS: Darius Brandt and Dr. Palomino. INDICATION: Preoperative cardiovascular evaluation. HISTORY OF PRESENT ILLNESS: The patient is a 71-year-old female whose past history, per review of records and discussion with the patient, is notable for chronic obstructive lung disease with a kyphotic chest, hypertension, and gastroesophageal reflux, but no documented cardiac disease. The patient was hospitalized for change in mental status in February of 2017 with evaluation at that time demonstrating normal left ventricular systolic function with frequent atrial and ventricular ectopy observed. No arrhythmias. The patient presents now on transfer from [facility], where she presented with hypotensive, tachycardic with multiple episodes of emesis, hematemesis and melena. She anticipates possible endoscopy later today and is referred now for preoperative procedural evaluation. The patient denies any prior history of cardiac disease. Notes no history of tachypalpitations, syncope or near syncope that she is aware of. Notes occasional fullness in the abdominal area. Notes no specific chest pains. Notes no fevers, chills or productive cough. Weight has been trending slightly lower. Notes no headache or visual changes. She was unable to take her antihypertensives for several days due to illness. She notes no signs or symptoms of fluid retention or orthopnea. Sleeps propped with pillows predominantly due to chest configuration. Does continue to smoke 1 to 1-1/2 pack of cigarettes per day. ALLERGIES: IODINATED CONTRAST. MEDICATIONS: Per med reconciliation list are losartan/hydrochlorothiazide 50/12.5 mg per day, Paxil 40 mg p.o. daily, and trazodone 50 mg at bedtime. PAST SURGICAL HISTORY: Multiple, which includes prior hysterectomy, hip replacement, shoulder surgery, colostomy with bowel resection secondary to diverticulitis and subsequent later reversal. FAMILY HISTORY: Not specifically notable for any cardiac disease. SOCIAL HISTORY: The patient resides in [place]. She smokes 1 to 1-1/2 pack of cigarettes per day with at least [id number] history of tobacco use. There is no alcoholic beverage use. PHYSICAL EXAMINATION: GENERAL: The patient is a thin elderly female, currently denying any acute distress. VITAL SIGNS: Heart rate 83, blood pressure is 160/82, and O2 saturation is 94% on room air. HEENT: Normocephalic and atraumatic. NECK: Thin. There is no audible carotid bruits. There is no jugular venous distension with the patient examined at 30 degrees. LUNGS: Reveal markedly diminished breath sounds bibasilar. Scattered crackles at the bases with poor inspiratory effort. Kyphotic chest configuration. CARDIOVASCULAR: Regular with normal S1 and S2. There is no murmur, gallop or rub. ABDOMEN: Soft and nondistended. EXTREMITIES: Without cyanosis or clubbing. There is no peripheral edema. NEUROLOGIC: The patient is alert and oriented and questions appropriately. LABORATORY DATA: Review of telemetry reveals transient multifocal atrial tachycardia, frequent atrial and ventricular ectopy and sinus tachycardia. EKG on presentation reveals sinus rhythm and sinus tachycardia at a rate of 106 with first degree AV block, frequent atrial ectopy, no Q-waves or ST segment changes. IMPRESSION: A 71-year-old female presented sinus symptoms of GI bleed at an outside hospital, transferred now for consideration of endoscopy. Underlying medical problems include hypertension, chronic tobacco use, obstructive lung disease, and kyphotic chest configuration. Telemetry reveals transient atrial tachycardia, likely reactive to acute illness and hypertension. RECOMMENDATIONS: No contraindications to proceeding with endoscopy. Would supplement potassium. Initiate low dose beta diana for heart rate and rhythm control at least during the transient hospital period. Losartan has been reordered for hypertension control without diuretic portion appropriately. Would recommend the patient receive medications today especially if endoscopy is delayed until tomorrow.
[2017-12-02] MEDS ORDERED: METOPROLOL SUCC 25MG EXT REL TAB PO ONE (16:45)
[2017-12-02] MEDS ORDERED: NURSING VERBAL MED ORDER ONE (21:00)
[2017-12-02] MEDS ORDERED: TRAZODONE HCL 50 MG TAB PO PRN (21:00)
[2017-12-03 00:02] VITALS: BP 136/72; PULSE 71; TEMP 37.3; O2SAT 93
[2017-12-03] MEDS: PANTOprazole INJ 40 MG in DEXTROSE 5% 100ML IV SCH ×3 (01:45→11:51)
[2017-12-03 03:50] VITALS: BP 148/74; PULSE 72; TEMP 36.9; O2SAT 94
[2017-12-03 07:45] VITALS: BP 162/75; PULSE 61; TEMP 36.4; O2SAT 93
[2017-12-03] MEDS: PAROXETINE 20 MG TAB PO SCH (07:47)
[2017-12-03 08:27] LABS: HEMATOCRIT 35.4 % (37-47); HEMOGLOBIN 10.7 g/dL (12.0-16.0); MEAN CELL VOLUME 81.2 fL (80-100); MEAN CORPUSCULAR HEMOGLOBIN 24.5 pg (25-34); MEAN CORPUSCULAR HGB CONC 30.2 g/dl (32-36); MEAN PLATELET VOLUME 9.1 fL (7.4-10.4); PLATELET COUNT 297 K/uL (130-400); RED CELL DISTRIBUTION WIDTH CV 20.2 % (11.5-14.5); RED CELL DISTRIBUTION WIDTH SD 60.4 fL (36.4-46.3); WHITE BLOOD COUNT 6.35 K/uL (4.8-10.8)
[2017-12-03] MEDS ORDERED: METOPROLOL SUCC 25MG EXT REL TAB PO SCH (09:00)
[2017-12-03] MEDS ORDERED: LOSARTAN POTASSIUM 50 MG TAB PO SCH (09:00)
[2017-12-03 09:01] LABS: CALCIUM 8.3 mg/dl (8.5-10.1); CREATININE 0.69 mg/dl (0.60-1.20); POTASSIUM 3.4 mmol/L (3.5-5.1)
--- NOTE | 2017-12-03 10:26 | Endo History and Physical ---
History & Physical Date of Service: Dec 03, 2017. Chief Complaint: Referring Physician: History of Present Illness patient with melena and probable recent upper GI bleeding from NSAID use. Past Surgical History Hx Cardiac Surgery: No Hx Abdominal Surgery: Yes (Appendectomy, Hysterectomy, Colostomy and reversal) Hx Post-Op Nausea and Vomiting: No Hx Cancer Surgery: No Hx Thoracic Surgery: No Hx Orthopedic: Yes (Right hip replacement) Hx Urinary Tract Surgery: No Social History Smoking Status: Current Every Day Smoker (restarted smoking in 2004 after stopping for 30 years) Hx Substance Use: No Hx Alcohol Use: No Allergies Coded Allergies: Iodinated Diagnostic Agents (Verified Allergy, Severe, ANAPHYLAXIS -- "Contrast Media", 03/05/17) Current Medications Reported Home Medications Medications Dose Route/Sig Max Daily Dose Days Date Category Paxil (Paroxetine HCl) 40 Mg Tab 40 Mg PO DAILY 12/01/17 Reported Trazodone (Trazodone HCl) 50 Mg Tab 50 Mg PO HS 12/01/17 Reported Hyzaar 12.5MG/50MG (HCTZ/Losartan Potassium) Tab 1 Tab PO DAILY 30 12/01/17 Reported Vital Signs Weight (Kilograms): 45.700 Height (Feet): 5 Height (Inches): 4.00 Date Time Temp Pulse Resp B/P (MAP) Pulse Ox O2 Delivery O2 Flow Rate FiO2 12/03/17 09:44 36.8 57 20 185/79 (114) 92 Room Air 12/03/17 08:00 Room Air 12/03/17 07:45 36.4 61 16 162/75 (104) 93 Room Air 12/03/17 04:00 Room Air 12/03/17 03:50 36.9 72 16 148/74 (98) 94 Room Air 12/03/17 00:02 37.3 71 16 136/72 (93) 93 Room Air 12/02/17 23:59 Room Air 12/02/17 20:00 Room Air 12/02/17 18:47 37.8 70 21 168/81 (110) 97 Room Air 12/02/17 16:00 Room Air 12/02/17 15:49 37.1 78 16 161/54 (89) 95 Room Air 12/02/17 12:00 Room Air 12/02/17 11:30 37.2 83 18 160/82 (108) 94 Room Air Physical Exam General Appearance: no apparent distress Respiratory/Chest: Auscultation: rhonchi Cardiovascular: Heart Auscultation: RRR Abdomen: Inspection & Palpation: soft (thin) Liver: non-tender Assessment and Plan stable for EGD
[2017-12-03] MEDS ORDERED: LIDOCAINE HCL 2% 2 ML VIAL (20MG/ML) ONE (10:28)
[2017-12-03] MEDS ORDERED: PROPOFOL IV EMULSION 10 MG/ML 20 ML VIAL IV ONE (10:28)
--- NOTE | 2017-12-03 10:57 | GI REPORT ---
Procedure Date: 12/03/2017 10:04 AM Procedure: Upper GI endoscopy Indications: Acute post hemorrhagic anemia, Melena Medicines: See the Anesthesia note for documentation of the administered medications Complications: No immediate complications. Estimated Blood Loss: Estimated blood loss: none. Procedure: Pre-Anesthesia Assessment: - Prior to the procedure, a History and Physical was performed, and patient medications, allergies and sensitivities were reviewed. The patient's tolerance of previous anesthesia was reviewed. - The risks and benefits of the procedure and the sedation options and risks were discussed with the patient. All questions were answered and informed consent was obtained. - Patient identification and proposed procedure were verified prior to the procedure by the physician and the nurse. The procedure was verified in the pre-procedure area. - Pre-procedure physical examination revealed no contraindications to sedation. - After reviewing the risks and benefits, the patient was deemed in satisfactory condition to undergo the procedure. After obtaining informed consent, the endoscope was passed under direct vision. Throughout the procedure, the patient's blood pressure, pulse, and oxygen saturations were monitored continuously. The Scope was introduced through the mouth, and advanced to the third part of duodenum. The upper GI endoscopy was accomplished without difficulty. The patient tolerated the procedure well. Findings: The esophagus was normal. A medium-sized hiatal hernia was present. A few non-bleeding localized erosions were found in the gastric antrum. The examined duodenum was normal. The cardia and gastric fundus were normal on retroflexion. Impression: - Normal esophagus. - Medium-sized hiatal hernia with associated Martell erosions. - Gastric erosions without bleeding. - Normal examined duodenum. - No specimens collected. Recommendation: - Return patient to hospital lal for ongoing care. - Patient should stay on oral PPI indefinitely. - Minimize NSAID use. Nacho Ritter M.D. Nacho Ritter MD 12/03/2017 10:57:30 AM This report has been signed electronically. Note Initiated On: 12/03/2017 10:04 AM I attest to the content of the Intraoperative Record and orders documented therein, exceptions below
--- NOTE | 2017-12-03 10:59 | Anesthesiology Progress Note ---
Anesthesia Post Op Note Date & Time Dec 03, 2017 at 10:59 Vital Signs Pain Intensity: 0.0 Vital Signs Past 12 Hours Date Time Temp Pulse Resp B/P (MAP) Pulse Ox O2 Delivery O2 Flow Rate FiO2 12/03/17 09:44 36.8 57 20 185/79 (114) 92 Room Air 12/03/17 08:00 Room Air 12/03/17 07:45 36.4 61 16 162/75 (104) 93 Room Air 12/03/17 04:00 Room Air 12/03/17 03:50 36.9 72 16 148/74 (98) 94 Room Air 12/03/17 00:02 37.3 71 16 136/72 (93) 93 Room Air 12/02/17 23:59 Room Air Notes Mental Status: alert / awake / arousable, participated in evaluation Pt Amnestic to Procedure: Yes Nausea / Vomiting: adequately controlled Pain: adequately controlled Airway Patency, RR, SpO2: stable & adequate BP & HR: stable & adequate Hydration State: stable & adequate Anesthetic Complications: no major complications apparent
--- NOTE | 2017-12-03 11:36 | Progress Note ---
Progress Note Date of Service Dec 03, 2017. (Darius Brandt,C.R.N.P.) Progress Note Ms. Mcqueen is a 71 yr old female admitted with report of melena. EGD today with mild erosions. Recommend regular consistency diet, daily PPI (fpc). GI will sign off. (Darius Barndt,C.R.N.P.)
[2017-12-03 12:00] VITALS: BP 141/76; PULSE 63; TEMP 37.1; O2SAT 95
[2017-12-03] MEDS ORDERED: PANTOprazole SOD 40 MG TAB PO ONE (12:45)
[2017-12-03] MEDS ORDERED: PRT40 PO (14:31)
[2017-12-03] MEDS ORDERED: TPRSR25 PO (14:31)
--- NOTE | 2017-12-03 14:39 | Discharge Summary ---
Discharge Summary Date of Service Dec 03, 2017. Discharge Summary Admission Date: Dec 01, 2017 at 18:06 Discharge Date: Dec 03, 2017 Discharge Disposition: Home Consultations: GI Cardio-Yoel Medication Reconciliation New Medications: Metoprolol Succinate (Metoprolol Succinate ER) 25 Mg Tabcr 12.5 MG PO QAM for 30 Days, #15 TAB Pantoprazole (Pantoprazole Sodium) 40 Mg Tab 40 MG PO QAM for 30 Days, #30 TAB Continued Medications: Hctz/Losartan (Hyzaar 12.5MG/50MG) Tab 1 TAB PO DAILY for 30 Days, #30 TAB 5 Refills Paroxetine (Paxil) 40 Mg Tab 40 MG PO DAILY, TAB Trazodone Hcl (Trazodone) 50 Mg Tab 50 MG PO HS, TAB Admission Information HPI (per Admitting provider): Patient is a 71 yo female who was transferred to the hospital via helicopter from [facility] for hypotension, tachycardia, and acute upper GI bleed. The patient is not a very good historian thus information was obtained from records. Attempted to contact her family Troy Mcqueen but he was not reachable. Patient reports having melena, coffee gorund emesis, and abdominal pain for the last 2 days. She states she only went to the ER today because her son encouraged her to go. She denies any similar symptoms in the past, although she vaguely mentions a prior GI bleed for which she was admitted to [facility] and was given blood but denies any intervention or additional information. She reports that she lives with her son and has been in good health overall. She admits that she takes 4-8 aleve tablets daily for chronic hip and back pain. She states she has noticed abdominal pain preceding episodes of vomiting. She denies any prior endoscopy. The patient was also recently treated for bronchitis with a course of prednisone and doxycycline, and per outpatient records the patient's PCP had referred the patient for endoscopy and also mentioned the patient has had irregular pulse and had a referral to have a TTE which was performed a month ago and showed grade I diastolic dysfunction and EF 60%. Also per outpatient records, the patient has been noted to be a vague historian and often answers with "I don't know" or "maybe" and has a poor recollection of her past history. Physical Exam (per Admitting): General Appearance: WD/WN, no apparent distress Head: normocephalic, atraumatic Eyes: PERRL, EOMI, sclerae normal (conjunectivae clear) ENT: hearing grossly normal, pharynx normal Neck: supple, no JVD, no carotid bruits, trachea midline Respiratory/Chest: chest non-tender, normal breath sounds, no respiratory distress, no accessory muscle use Cardiovascular: no edema, no gallop, no JVD, no murmur, + irregularly irregular Abdomen/GI: normal bowel sounds, soft, no organomegaly, + tenderness ( suprapubic) Back: no CVA tenderness, no muscle spasm Extremities/Musculoskelatal: no calf tenderness, normal capillary refill, no pedal edema Neurologic/Psych: no motor/sensory deficits, alert, normal mood/affect, oriented x 3 Skin: normal color, warm/dry, no rash Hospital Course 71 yo F with h/o GI bleed and recent melena, abdominal discomfort and coffee ground emesis. Symptoms have resolved overnight after being lifeflighted to [facility] from [place]. Vitals are stable. GI is requesting Cardiology to clear her for scope which is planned for later today. 1. UGIB-recent coffee ground emesis, melena and hemodynamic instability with hypotension and tachycardia prior to IVF and 2 unit pRBCs. She feels much better this morning with persistent abdominal pain, but denies any further nausea, emesis or BMs. GI was consulted and is requesting Cardiology clearance prior to scope. Protonix drip is on board and pt is NPO. Post transfusion Hb is 11.5. Etiology thought to be NSAID-related with assisted Aleve use for back pain, and she also has a h/o steroid use in the recent past. 2. Tachycardia-sinus tachy and has resolved after initial resuscitation attempt. Pt denies any chest pain or SOB and feels better overall this morning. 3. Microcytic anemia likely related to acute blood loss as above-pt noted to have outpatient Hb 7.7 a few weeks ago and did not follow-up with GI after referral for endoscopy. Plan per #1. 4. HTN-Pt was recently switched to Losartan HCT 50/12.5 in the clinic. Will stop the lisinopril as she is complaining of a dry cough for months. Will continue Losartan 50mg PO daily and hold the diuretic in setting of acute bleed. 5. Acute blood loss anemia 2/ #1. DVT proph-SCDs/ambulate Full Code Dispo-await scope per GI, cont telemetry for now. DO [facility] Total time spent on discharge = 60 minutes This includes examination of the patient, discharge planning, medication reconciliation, and communication with other providers. Discharge Instructions [facility] [address] [place] [address] Discharge Medical Patient Name: Angelica Mcqueen Unit Number: [id number] Date of : 1945 Patient Status: Admitted Inpatient Attending Doctor: Marisa Palomino DO DI: Medical v4 Discharge Instructions Date of Service Dec 03, 2017. Admission Reason for Admission: Gi Bleed W/Anemia Discharge Discharge Diagnosis / Problem: Gastritis related to NSAID use Discharge Goals Goal(s): Prevent Disease Progression Activity Recommendations Activity Limitations: per Instructions/Follow-up section . Instructions / Follow-Up Instructions / Follow-Up Please take all medications as instructed. It is recommended that you take PROTONIX (new medication) indefinitely as it protects the lining of the stomach. It is thought that your issues came from NSAIDs (rbo-vxcbxxkdi-ypjm- inflammatory drugs) which are things like Aleve, Naproxen, Motrin or Ibuprofen. These medications should be avoided and not taken on a regular basis. For your back pain, please consider using Tylenol instead or discussing the need for something stronger with your primary care physician. You may use up to 3000mg of Tylenol safely as needed for pain. You have an appointment for followup of this hospitalization with Dr. Arthur on , 12/07 @ 1100. Please bring all paperwork with you from hospital discharge. It was a pleasure taking care of you! Call if you have any questions or problems. You can reach a [facility] hospitalist on duty at [facility] 24 hours a day by calling [phone]. Take care of yourself. DO [facility] Hospital[facility] Current Hospital Diet Patient's current hospital diet: AHA Diet (Heart Healthy) Discharge Diet Recommended Diet: AHA Diet (Heart Healthy) Procedures Procedures Performed: EGD Pending Studies Studies pending at discharge: no Medical Emergencies . Who to Call and When: Medical Emergencies: If at any time you feel your situation is an emergency, please call 911 immediately. . Non-Emergent Contact Non-Emergency issues call your: Primary Care Provider . . "Provider Documentation" section prepared by Marisa Palomino. . VTE Core Measure Inpt VTE Proph given/why not?: SCD's, Contraindicated Additional Copies To Donta Arteaga M.D.
[2017-12-03 15:03] VITALS: BP_SYST 141; BP_SYST 151; BP_DIAS 63; BP_DIAS 76; PULSE 63; PULSE 73; TEMP 37.1; TEMP 37.3; O2SAT 94; O2SAT 95
[2017-12-04] MEDS ORDERED: PANTOprazole SOD 40 MG TAB PO SCH (09:00)
== END 2017-12-03 16:29 | disposition home or self-care (01) | DRG 378 ==
LOC: C.2T 18:06
PROVIDERS: ADMIT Hospitalist; ATTEND Hospitalist
PROC: 0DJ08ZZ Inspection of Upper Intestinal Tract, Via Natural or Artificial Opening Endoscopic (ICD-10-PCS; principal; 2017-12-03 09:39)
DX: K92.2 Gastrointestinal hemorrhage, unspecified (principal); D62 Acute posthemorrhagic anemia; T39.315A Adverse effect of propionic acid derivatives, initial encounter; K25.9 Gastric ulcer, unspecified as acute or chronic, without hemorrhage or perforation; K44.9 Diaphragmatic hernia without obstruction or gangrene; I10 Essential (primary) hypertension; F41.9 Anxiety disorder, unspecified; F32.9 Major depressive disorder, single episode, unspecified; F17.210 Nicotine dependence, cigarettes, uncomplicated; Z79.899 Other long term (current) drug therapy; Z91.041 Radiographic dye allergy status; Z88.8 Allergy status to other drugs, medicaments and biological substances